=== PATIENT | male | born 1940 | race Caucasian/White ===

== ENCOUNTER 2024-03-31 22:38 | Inpatient (IN) | payer MEDICARE, SELFPAY ==
--- NOTE | ~2024-03-31 | MR_ITS ---
MR brain/brain stem wo/w con Ordering provider: Valdez Wallace MD History: 83 years Male with . abnml CT brain . Comparison: CT head performed today. Technique: MRI brain was performed with and without contrast. FINDINGS: BONES: Normal. CRANIOCERVICAL JUNCTION: normal. PITUITARY: Normal. MAJOR INTRACRANIAL VESSELS: Normal flow void. OPTIC NERVES AND CRANIAL NERVES VII AND VIII COMPLEXES: Grossly normal. BRAIN PARENCHYMA AND CSF SPACES: No visible white matter disease. The brainstem and cerebellum are n ormal. Susceptibility artifacts are seen in the left temporal lobe suggestive of hemorrhagic changes with brain contusion. No other similar areas seen in the rest of the brain. No extra axial fluid jose l ections. Diffusion weighted and ADC mapping images reveal 2 small foci in the left occipital and the right frontal lobes which may represent focal lacunar infarcts.. No midline shift or mass effect. No abnormal contrast enhancement. PARANASAL SINUSES: Normal. MASTOIDS: Minimal effusion in both mastoid air cells. SUPERFICIAL/SURROUNDING SOFT TISSUES: Normal. IMPRESSION: 1. Multiple small Susceptibility artifact areas seen in the left temporal lobe suggestive of hemorrh agic changes. Brain contusion is possible. 2. 2 small foci of diffusion restriction in the right frontal and left occipital lobes which may rep resent small lacunar infarcts. 3. No abnormal enhancement. Reviewed, dictated and finalized at location A. IMPRESSION: 1. Multiple small Susceptibility artifact areas seen in the left temporal lobe suggestive of hemorrhagic changes. Brain contusion is possible. 2. 2 small foci of diffusion restriction in the right frontal and left occipit al lobes which may represent small lacunar infarcts. 3. No abnormal enhancement.
--- NOTE | ~2024-03-31 | XR_ITS ---
XR chest 1V portable Ordering provider: Dalton Villafuerte MD History: 83 years Male with . sob . Comparison: None. FINDINGS: MEDIASTINUM: The cardiac silhouette is not enlarged. Prominent right hilum. LUNGS: No effusion or pneumothorax. Opacification in the right lung base and to a lesser extent the l eft suggestive of pneumonia. OTHER: No free air under the diaphragm. Degenerative changes of the spine. Bilateral shoulder arthroplasty. IMPRESSION: Bibasilar pneumonia more on the right side. Reviewed, dictated and finalized at location A.
--- NOTE | ~2024-03-31 | CT_ITS ---
EXAMINATION: CT brain wo con DATE: 04/09/2024 12:49 INDICATION: Hemorrhagic cerebrovascular accident. TECHNIQUE: Computed tomography (CT) of the head was performed without intravenous contrast. The mA wa s adjusted according to patient size. Iterative reconstruction technique was employed. The dose-lengt h product was 832.33 mGy-cm. COMPARISON: Head CT 04/08/2024, brain MRI 04/08/2024 FINDINGS: There are scattered areas of low attenuation in the cerebral white matter, which is within normal limits for the patient's age. There are 4 mm and 5 mm hyperdense masses in sulci in left tempo ral lobe. There is no acute ischemic infarct. The ventricles are normal in size. There is mild mucosa l thickening in the ethmoid sinuses. There are likely changes of ocular lens replacement surgeries. T he mastoid air cells are normal. IMPRESSION: 1. 4 mm and 5 mm hyperdense masses again seen in sulci in left temporal lobe, most likely acute subar achnoid hemorrhage. Reviewed, dictated and finalized at location A. IMPRESSION: 1. 4 mm and 5 mm hyperdense masses again seen in sulci in left temporal lobe, m ost likely acute subarachnoid hemorrhage.
--- NOTE | ~2024-03-31 | CT_ITS ---
CT diagnostic chest wo con Ordering provider: Coy Garcia MD History: 83 years Male with . CHF ? pleural effusion . Comparison: None. Technique: CT chest without IV contrast.Radiation reduction technique utilized. DLP is 681.17 mGy. FINDINGS: VISUALIZED THORACIC INLET: Normal. MEDIASTINUM: Aorta/coronary arteries: Mild atheromatous disease. Heart/other: The heart is not enlarged. Moderate pericardial effusion. Lymph nodes: No mediastinal or hilar adenopathy. Paratracheal lymph node is noted measuring 1.1 cm. [address] mall prevascular lymph nodes are noted. LUNGS: Bilateral pleural effusion more on the right side. No pulmonary nodules or masses. No pneumoth orax. Atelectasis versus pneumonia seen in the right lung bases posteriorly more on the right side VISUALIZED UPPER ABDOMEN: Fluid is seen medial to the esophagus in the lower thoracic area.Further ev aluation for the esophagus is advised although most likely not related to esophageal pathology. Stone is seen in the right kidney upper pole. Otherwise, the visualized upper abdomen is normal. MUSCULOSKELETAL: Soft tissues: The superficial soft tissues are normal. Bones: Age appropriate degenerative changes of the spine. Slight loss of volume of 2 vertebrae in the upper thoracic area most likely chronic. Degenerative disc disease seen in the lower thoracic area. Bilateral shoulder arthroplasty. IMPRESSION: 1. Bilateral pleural effusion although moderate degree with adjacent atelectasis versus pneumonia in the lower lobes 2. Moderate pericardial effusion. 3. Right renal stone. 4. Fluid collection seen adjacent to the esophagus. Further evaluation of the esophagus advised. Reviewed, dictated and finalized at location A. IMPRESSION: 1. Bilateral pleural effusion although moderate degree with adjacent atelectas is versus pneumonia in the lower lobes 2. Moderate pericardial effusion. 3. Right renal stone. 4. Fluid collection seen adjacent to the esophagus. Further evaluation of the esophagus advised.
--- NOTE | ~2024-03-31 | US_ITS ---
EXAMINATION: US carotid duplex BI DATE: 04/09/2024 09:50 INDICATION: Right frontal and left occipital infarcts. Cerebrovascular accident. TECHNIQUE: Grayscale, color Doppler, and pulsed Doppler images of the cervical carotid arteries were obtained. The degree of vessel stenosis is placed in one of the following categories: normal, <50%, 5 0-69%, >=70% but less than near-occlusion, near-occlusion, or total occlusion. Note that percent sten osis relative to normal distal artery lumen diameter is indirectly measured from velocity measurement s as described by Umair, et al. Radiology 2003; 229:340-346. COMPARISON: None. FINDINGS: RIGHT: The right common carotid artery (CCA) peak systolic velocity (PSV) is 82 cm/s. The right internal car otid artery (ICA) PSV is 96 cm/s. The right ICA end-diastolic velocity (EDV) is 23 cm/s. The right IC A/CCA PSV ratio is 1.2. Grayscale and color Doppler images yield an estimate of <50% diameter reducti on from plaque in the ICA. There is antegrade flow in the right vertebral artery. LEFT: The left CCA PSV is 69 cm/s. The left ICA PSV is 95 cm/s. The left ICA EDV is 20 cm/s. The left ICA/C CA PSV ratio is 1.4. Grayscale and color Doppler images yield an estimate of <50% diameter reduction from plaque in the ICA. There is no visible flow in the left vertebral artery. IMPRESSION: 1. <50% stenosis in the right internal carotid artery. 2. <50% stenosis in the left internal carotid artery. 3. No visible flow in left vertebral artery, which may be secondary to thrombosis or small artery siz e. Reviewed, dictated and finalized at location A. IMPRESSION: 1. <50% stenosis in the right internal carotid artery. 2. <50% stenosis in the left internal carotid artery. 3. No visible flow in left vertebral artery, which may be secondary to thrombos is or small artery size.
--- NOTE | ~2024-03-31 | CT_ITS ---
CT brain wo con Ordering provider: Valdez Wallace MD History: 83 years Male with . change in mental status . Comparison: None. Technique: CT of the head without contrast. Radiation reduction technique utilized. DLP measures 681m Gy. FINDINGS: BRAIN PARENCHYMA AND CSF SPACES: 2 Small hyperdense foci seen in the left temporal area which are mos t likely hemorrhagic or metastatic. Further evaluation advised. Mild brain atrophy with deep white ma tter ischemic changes. No midline shift, mass effect or hemorrhage. The brain parenchyma and CSF spa jerad are otherwise normal. VISUALIZED PARANASAL SINUSES: Well aerated. MASTOIDS: Well aerated. BONES: The bones appear intact. SOFT TISSUES: Visualized nasopharynx is normal. Superficial soft tissues are normal. IMPRESSION: 2 small hypodense foci in the left temporal area which measures 4 mm and 6 mm. The differential inclu sean hemorrhagic and metastatic lesions. Follow-up MRI with contrast advised. Reviewed, dictated and finalized at location A. IMPRESSION: 2 small hypodense foci in the left temporal area which measures 4 mm and 6 mm. The differential includes hemorrhagic and metastatic lesions. Follow-up MRI wit h contrast advised.
--- NOTE | ~2024-03-31 | XR_ITS ---
EXAMINATION: XR chest 1V portable DATE: 04/08/2024 09:15 INDICATION: Dyspnea. TECHNIQUE: A single frontal view of the chest was obtained. COMPARISON: Chest single view 03/31/2024, chest CT 04/05/2024 FINDINGS: There are airspace opacities in the perihilar regions and at the lung bases. The lung volum es are small. There is a small left pleural effusion. Pneumothorax. The heart size is normal. There a re bilateral shoulder arthroplasties. IMPRESSION: 1. Small lung volumes with airspace opacities in the perihilar regions and at the lung bases, likely atelectasis. 2. Small left pleural effusion. Reviewed, dictated and finalized at location A. IMPRESSION: 1. Small lung volumes with airspace opacities in the perihilar regions and at t he lung bases, likely atelectasis. 2. Small left pleural effusion.
--- NOTE | ~2024-03-31 | XR_ITS ---
EXAMINATION: XR chest 1V portable DATE: 04/09/2024 10:31 INDICATION: Congestive heart failure. TECHNIQUE: A single frontal view of the chest was obtained. COMPARISON: Chest single view 04/08/2024, chest CT 04/05/2024 FINDINGS: There is mild atelectasis in the lower lung zones. There are small pleural effusions. No pn eumothorax. There is enlargement of the cardiac silhouette. There is a total left shoulder arthroplas ty. IMPRESSION: 1. Mild atelectasis in the lower lung zones. 2. Small pleural effusions. 3. Enlargement of the cardiac silhouette correlating with a pericardial effusion by CT. Reviewed, dictated and finalized at location A. IMPRESSION: 1. Mild atelectasis in the lower lung zones. 2. Small pleural effusions. 3. Enlargement of the cardiac silhouette correlating with a pericardial effusio n by CT.
[2024-03-31 22:30] VITALS: BP 153/96; PULSE 91; RESP 18; TEMP 36.1; O2SAT 96; BMI 41.4
[2024-03-31 22:34] VITALS: BMI 41.3
--- NOTE | 2024-03-31 22:38 | PM.IMHP ---
H&P: HPI History of Present Illness Date/Time: 03/31/24 22:38 Chief Complaint: sob Narrative: This is an 83-year-old male with past medical history significant for insulin-dependent diabetes mellitus diabetic peripheral neuropathy, congestive heart failure. patient presents to the emergency room of outside hospital due to sudden onset of shortness of breath states that he had been in his usual state of health prior to that, denies any fevers, rigors, chills, chest pain, palpitations, dizziness, lightheadedness, syncope or near-syncope, no leg swelling, no cough, no sputum production. Preliminary workup was significant for elevated troponins, elevated brain natriuretic peptide decision was made to transfer patient to our facility for further evaluation. Patient require supplemental oxygen by nasal cannula. Preliminary workup here shows chest x-ray with bilateral bibasilar infiltrates. XR chest 1V portable Ordering provider: Dalton Villafuerte MD History: 83 years Male with . sob . Comparison: None. FINDINGS: MEDIASTINUM: The cardiac silhouette is not enlarged. Prominent right hilum. LUNGS: No effusion or pneumothorax. Opacification in the right lung base and to a lesser extent the left suggestive of pneumonia. OTHER: No free air under the diaphragm. Degenerative changes of the spine. Bilateral shoulder arthroplasty. IMPRESSION: Bibasilar pneumonia more on the right side. Review of Systems Review of Systems: sob Constitutional: Constitutional: Denies chills, Denies fatigue, Denies fever(s), Denies malaise, Denies night sweats, Denies poor appetite and Denies weakness Eyes: Eyes: Denies change in vision ENT: Denies dysphagia, Denies vertigo, Denies dizziness, Denies nasal congestion and Denies odynophagia Cardiovascular: Cardiovascular: Denies chest pain, Denies leg edema, Denies radiating jaw, neck or arm pain, Denies palpitations, Reports dyspnea and Reports dyspnea on exertion Respiratory: Respiratory: Denies chest congestion, Denies cough, Denies excessive phlegm production and Denies wheezing Gastrointestinal: Gastrointestinal: Denies abdominal pain, Denies dyspepsia, Denies heartburn, Denies diarrhea, Denies nausea and Denies vomiting Genitourinary: Genitourinary: Reports no additional male genitourinary complaints and Reports as per HPI Musculoskeletal: Musculoskeletal: Denies myalgias Integumentary/Breasts: Skin/Breast: Denies rash Neurologic: Denies focal weakness and Denies Sensory deficit (Neuro) Psychiatric: Psychiatric: Reports no additional psychiatric complaints and Reports as per HPI Endocrine: Endocrine: Denies cold intolerance, Denies heat intolerance, Denies polyphagia, Denies polydipsia, Denies polyuria and Denies palpitations Hematologic/Lymphatic: Hematologic/Lymphatic: Reports no additional hematologic/lymphatic complaints and Reports as per HPI Allergic/Immunologic: Allergic/Immunologic: Reports no additional allergic/immunologic complaints and Reports as per HPI [facility] Family History Family History (Updated 03/31/24 @ 23:01 by Noble Johnson RN) Father History of blood clots Social History Social History Smoking status: Never smoker Alcohol intake: never Substance use: never Do You Feel Safe in your Home?: No Lack of Transportation: YES Lack of Food: Never True Current Housing: I Have Housing Concerned About Future Housing: No Difficulty Paying Gas/Electric Bills: No Difficulty Paying for Meds: No Currently Unemployed: No Education: High School Diploma/GED Difficulty w/ Childcare or Family Care: No Spiritual care concerns: Yes Meds Home Medications and Allergies Home Medications Medication Instructions Recorded Confirmed Type acetaminophen 500 mg tablet 1,000 mg PO Q6H PRN Pain 03/31/24 03/31/24 History aspirin 81 mg chewable tablet 81 mg PO DAILY 03/31/24 03/31/24 History carvedilol 12.5 mg tablet 12.5 mg PO BID
--- NOTE | 2024-03-31 22:47 | ECG_ITS ---
Test Date: 2024-03-31 23:13:27 Measurements Intervals [place] Rate: 85 P: 29 [place]: 169 QRS: 116 QRSD: 134 T: 78 QT: 398 QTc: 474 Interpretive Statements SINUS RHYTHM MARKED RIGHT AXIS DEVIATION [QRS AXIS > 100] RIGHT BUNDLE BRANCH BLOCK [120+ ms QRS DURATION, UPRIGHT V1, 40+ ms S IN I/aVL/V4/V5/V6] ANTEROLATERAL MYOCARDIAL INFARCTION [40+ ms Q WAVE IN V1-V4], PROBABLY RECENT No previous ECG available for comparison Electronically Signed On 04-01-2024 12:43:29 CDT by Jimy Elise M.D.
--- NOTE | 2024-03-31 22:47 | ADMGEN ---
This patient, Angel Aceves, was admitted to IMU Room 203-01. Patient/family oriented to hospital policies and general routines including ID bracelet, bed and alarms, visiting hours, pain management, procedures, bathroom and other care routines, personal items, smoking policy, room service/diet, and visiting hours. Information on how to activate the Rapid Response Team has been discussed. Patient/Family are encouraged to report perceived risks to care and to ask questions if they do not understand what they are told or what they should do.
[2024-03-31 23:29] LABS: Basophils Percent Auto 0.1 % (0.2-1.2); Eosinophils Percent Auto 0.1 % (0-4.4); Hematocrit 42.2 % (42.0-52.0); Hemoglobin 12.9 g/dL (14.0-18.0); Immature Granulocyte Absolute 0.01 K/mm3 (0.00-0.031); Immature Granulocyte Percent A 0.1 % (0-0.5); Lymphocytes Absolute Auto 0.57 K/mm3 (0.9-3.2); Lymphocytes Percent Auto 8.5 % (18.3-44.2); Mean Corpuscular HGB Conc 30.6 g/dl (32-36); Mean Corpuscular Hemoglobin 27.3 pg (26-34); Mean Corpuscular Volume 89.4 fl (80-100); Mean Platelet Volume 10.2 fl (7.4-10.4); Monocytes Absolute Auto 0.1 K/mm3 (0.1-0.6); Monocytes Percent Auto 0.7 % (2.6-8.5); Neutrophils Percent Auto 90.5 % (45.5-73.1); Platelet Count Result 141 k/mm3 (150-375); Red Blood Count 4.72 M/mm3 (4.6-6.20); Red Cell Distribution Width 14.4 % (11.5-14.5); White Blood Count 6.7 K/mm3 (4.5-10.0)
[2024-03-31 23:40] VITALS: O2SAT 98
[2024-03-31 23:40] LABS: Anion Gap 6 mmol/L (4-12); Blood Urea Nitrogen 28 mg/dL (9-20); Calcium 8.6 mg/dL (8.4-10.2); Carbon Dioxide 31 mmol/L (22-30); Chloride 101 mmol/L (98-107); Estimated CRCL calculation 34 ml/min; Estimated Glomerular Filt Rate 48; Glucose 193 mg/dL (65-110); Phosphorus 2.5 mg/dL (2.5-4.5); Potassium 4.6 mmol/L (3.4-5.0); Sodium 138 mmol/L (137-145)
[2024-03-31 23:41] LABS: INR 1.3; Prothrombin Time 16.1 Seconds (11.1-14.7)
[2024-03-31 23:42] LABS: Partial Thromboplastin Time 53.7 Seconds (22.3-36.8)
[2024-03-31 23:46] LABS: Glucose Point of Care 196 mg/dl (65-105)
[2024-04-01] VITALS (26 sets, daily range): BP systolic 114–131; BP diastolic 49–84; PULSE 82–105; RESP 16–20; TEMP 36.4–36.6; O2SAT 91–97
--- NOTE | 2024-04-01 | ECHO_ITS ---
Patient Info Name: Angel Aceves Age: 83 years : 1940 Gender: Male Ht: 60 in Wt: 212 lbs BSA: 2.07 m2 HR: 87 bpm BP: 114 / 64 mmHg Technical Quality: Fair Exam Date: 04/01/2024 7:38 AM Exam Location: Echo Lab Patient Status: Inpatient Admit Date: 03/31/2024 Staff Ordering Physician: Datlon Villafuerte MD Tube Closing Machine Operator: Jaswinder Quintanilla RDCS Attending Provider: Dalton Villafuerte MD Referring Physician: Christo DUARTE; Exam Type: CA echo dop color flow w con Study Info Indications - sob Complete two-dimensional, color flow and Doppler transthoracic echocardiogram is performed with contrast to opacify the left ventricle and to improve the deliniation of the left ventricle endocardial borders. Contrast/Agitated Saline Contrast/Ag. Saline: Definity Amount: 5.00 ml Existing IV Access: Yes Summary 1. Definity contrast administered improved wall motion interpretation. 2. Left ventricular chamber dimension is severely enlarged. 3. Left ventricular systolic function is severely globally reduced, estimated at 15-20%. The basal posterolateral wall has mild hypokinesis compared to other segments that are severely hypokinetic to akinetic. 4. The left ventricular diastolic function is grade I diastolic dysfunction. 5. E/e' 14 is mildly elevated. 6. There is mild aortic valve sclerosis. 7. There is mild mitral valve regurgitation. 8. There is mild tricuspid valve regurgitation. 9. Mild pulmonary hypertension, estimated pulmonary arterial systolic pressure is 42 mmHg. 10. Dilated inferior vena cava with >50% collapse upon inspiration consistent with elevated right atrial pressure, 10 mmHg. 11. There is small circumferential pericardial effusion. Left Ventricle Definity contrast administered improved wall motion interpretation. E/e' 14 is mildly elevated. Left ventricular systolic function is severely globally reduced, estimated at 15-20%. The basal posterolateral wall has mild hypokinesis compared to other segments that are severely hypokinetic to akinetic. Left ventricular chamber dimension is severely enlarged. The left ventricular diastolic function is grade I diastolic dysfunction. Right Ventricle Right ventricular chamber dimension is not well visualized. Left Atria Left atrial chamber dimension is normal. Right Atria Right atrial chamber dimension is normal. Aortic Valve The aortic valve is trileaflet. There is mild aortic valve sclerosis. There is no aortic valve stenosis. There is no aortic valve regurgitation. Pulmonic Valve There is no pulmonic regurgitation. Mitral Valve There is no mitral valve stenosis. There is mild mitral valve regurgitation. Tricuspid Valve There is mild tricuspid valve regurgitation. Mild pulmonary hypertension, estimated pulmonary arterial systolic pressure is 42 mmHg. Pericardium/Pleural No cardiac tamponade. There is small circumferential pericardial effusion. Inferior Vena Cava Dilated inferior vena cava with >50% collapse upon inspiration consistent with elevated right atrial pressure, 10 mmHg. Aorta The aortic root size at the sinus of Valsalva is normal. Left Ventricular Outflow Tract Name Value Normal LVOT 2D LVOT Diameter 2.01 cm LVOT Doppler
[2024-04-01] MEDS: cefTRIAXone 2 GM/NS 100 ML 2 GM/100 ML BAG IVPB ×2 (00:13→20:56)
[2024-04-01] MEDS: hydrALAZINE HCL 25 MG TABLET PO (00:13)
[2024-04-01] MEDS: GABAPENTIN 300 MG CAPSULE 600 MG PO ×3 (00:13→20:55)
[2024-04-01] MEDS: IMIPRAMINE HCL 25 MG TABLET PO ×2 (00:25→20:55)
[2024-04-01] MEDS: AZITHROMYCIN 500 MG/NS 250 ML 500 MG/250 ML BAG 250 MG IVPB ×2 (00:48→20:57)
[2024-04-01] MEDS: LEVALBUTEROL NEB 1.25 MG/3 ML 0.63 MG INHALATION ×4 (01:45→19:55)
[2024-04-01] MEDS: HEPARIN SOD/D5W 100 UNITS/ML 25,000 UNITS/250 ML BAG 8 UNITS IV CONT (01:54)
[2024-04-01 08:32] LABS: Glucose Point of Care 224 mg/dl (65-105)
[2024-04-01] MEDS: PERFLUTREN LIPID MICROSPHERES 1.5 ML VIAL DILUTED TO 10 ML TOTAL VOLUME IV PUSH (08:44)
--- NOTE | 2024-04-01 08:44 | IVDEFINITY ---
Prior to administration of IV Definity the patient was educated on the risks and benefits of the imaging enhancing agent including potential adverse side effects. The patient verbalized understanding. Allergies were verified. No exclusion criteria were identified and at least one of the following inclusion criteria were met: 1) physician request, 2) patient technically difficult to image (per the [place] [employer] guidelines of two or more segments not discernable within the apical view), or 3) questionable left ventricular function. ?
[2024-04-01] MEDS: PRAMIPEXOLE 0.5 MG TABLET PO (09:23)
[2024-04-01] MEDS: ASPIRIN 81 MG CHEWABLE TABLET PO (09:23)
[2024-04-01] MEDS: TAMSULOSIN HCL 0.4 MG CAPSULE PO (09:23)
[2024-04-01] MEDS: INSULIN HUMAN ISOPHAN/REGULAR 70/30 (*BKC) 100 UNITS/ML 12 UNITS SUB-Q (09:28)
[2024-04-01 09:48] LABS: Partial Thromboplastin Time 46.4 Seconds (22.3-36.8)
[2024-04-01 09:50] LABS: Cholesterol 118 mg/dL (0-200); HDL Direct 36 mg/dL; Triglycerides 85 mg/dL (<150)
[2024-04-01] MEDS: HEPARIN SODIUM 5,000 UNITS/ML VIAL 4000 UNITS IV PUSH (09:53)
[2024-04-01 10:08] LABS: LDL Cholesterol Direct 75 mg/dL
[2024-04-01 10:12] LABS: NT Pro B Type Natriuretic Pept 14700 pg/mL (19.9-100)
--- NOTE | 2024-04-01 10:57 | PM.CNCAR ---
Assessment and Plan Assessment and plan (1) Heart failure with reduced ejection fraction: Code(s): I50.20 - Unspecified systolic (congestive) heart failure Status: Acute Assessment and Plan: Transthoracic echocardiogram shows severe enlargement of LV, LVEF is 15-20%, the basal posterolateral wall has mild hypokinesis compared to the other segments that are severely hypokinetic to akinetic, grade 1 diastolic dysfunction, mild MR, mild TR, mild PHTN, small circumferential pericardial effusion. This is a new diagnosis for the patient. Continue home medication of Coreg 12.5mg BID. Will stop home Hydralazine and start Entresto. If renal function stays okay with Entresto, will plan to add Spironolactone. Eventually add SGLT-2 inhibitor. Patient currently appears euvolemic -- no need for diuretic at this time. I did discuss cardiac catheterization with the patient, however, patient is not interested in pursuing that at this time, therefore, will proceed with medical management. (2) Elevated troponin: Code(s): R79.89 - Other specified abnormal findings of blood chemistry Status: Acute Assessment and Plan: Troponin 2.460, 2.140, 2.120. EKG shows sinus rhythm, right bundle branch block, possible recent anterolateral infarction. No prior EKG available for comparison. Patient's symptoms of exertional shortness of breath and weakness first began a few weeks ago. Patient may have had a myocardial infarction at that time. Troponins are currently flat and patient has no chest pain or other symptoms to suggest ongoing active myocardial ischemia. Therefore, will stop Heparin drip. Continue ASA 81mg once daily. Will start high intensity statin. I did discuss cardiac catheterization with the patient, however, patient is not interested in pursuing that at this time, therefore, will proceed with medical management. (3) Acute hypoxic respiratory failure: Code(s): J96.01 - Acute respiratory failure with hypoxia Status: Acute Assessment and Plan: Wean off oxygen as tolerated. (4) Pneumonia: Code(s): J18.9 - Pneumonia, unspecified organism Status: Acute Assessment and Plan: On antibiotics as per primary team. (5) T2DM (type 2 diabetes mellitus): Code(s): E11.9 - Type 2 diabetes mellitus without complications Status: Acute Assessment and Plan: Management as per primary team. Plan Recommendations and plan discussed with Hospitalist. History of Present Illness History of Present Illness Consult date/time: 04/01/24 10:57 Requesting physician: Dalton Villafuerte MD Consult reason: Other (Elevated troponins ) Reason For Visit: NSTEMI Narrative: This is an 83 year old male with insulin-dependent diabetes mellitus complicated by peripheral neuropathy and hypertension who was transferred from outside hospital for elevated troponin levels. Patient reports that he has been having weakness and exertional shortness of breath for the past few weeks and has been getting progressively worse. No chest pain or other associated symptoms. Patient states he felt this way before when he had pneumonia in the past. He was hoping it would improve at home, but since it didn't, he decided to go to hospital. No prior patient records in our system. Patient denies any past cardiac issues. Does not see a gas analyst. Workup shows: Troponin 2.460, 2.140, 2.120. NT pro BNP of 14,700 CXR with bibasilar pneumonia more on the right side. EKG shows sinus rhythm, right bundle branch block, possible recent anterolateral infarction. No prior EKG available for comparison. At the time of my evaluation, patient reports he is overall feeling well. Review of Systems Review of Systems: All systems reviewed & are unremarkable except as noted in HPI and below (HPPI) [facility] Family History Family History Father History of blood clots
[2024-04-01] MEDS: ATORVASTATIN 40 MG TABLET 80 MG PO (11:30)
[2024-04-01] MEDS: INSULIN HUMAN ISOPHAN/REGULAR 70/30 (*BKC) 100 UNITS/ML 34 UNITS SUB-Q (11:31)
[2024-04-01 11:45] LABS: Glucose Point of Care 222 mg/dl (65-105)
[2024-04-01 11:51] LABS: Hemoglobin A1C 7.7 % (<5.7)
--- NOTE | 2024-04-01 13:59 | PM.IMPN ---
Progress Note: A&P Assessment and Plan (1) Pneumonia: Code(s): J18.9 - Pneumonia, unspecified organism Status: Acute Assessment and Plan: Started on Rocephin and Zithromax blood cultures in progress (2) Acute hypoxic respiratory failure: Code(s): J96.01 - Acute respiratory failure with hypoxia Status: Acute Assessment and Plan: likely secondary to 1. Continue to monitor (3) Elevated troponin: Code(s): R79.89 - Other specified abnormal findings of blood chemistry Status: Acute Assessment and Plan: currently on heparin cardiology consult Echo with systolic dysfunction Appreciate cardiology recommendations (4) T2DM (type 2 diabetes mellitus): Code(s): E11.9 - Type 2 diabetes mellitus without complications Status: Acute Assessment and Plan: resume insulin (5) Elevated brain natriuretic peptide (BNP) level: Code(s): R79.89 - Other specified abnormal findings of blood chemistry Status: Acute Assessment and Plan: echocardiogramWith systolic dysfunction patient appears euvolemic on physical exam place on fluid restriction daily intake and output Subjective Date/time seen: 04/01/24 13:59 Interval history: Getting an echocardiogram this a.m. Denies any chest pain. Breathing is better. No cough reported. Review of Systems Review of Systems: All systems reviewed & are unremarkable except as noted in HPI and below Exam Narrative: GENERAL: The patient is well developed, not in acute distress HEENT: Nonicteric sclerae, PERRLA, EOMI. Oropharynx clear. Moist mucous membranes. Conjunctivae appear well perfused. CHEST: Chest wall is nontender. HEART: Regular rate and rhythm without murmur, rubs, or gallops LUNGS: Clear to auscultation bilaterally. no respiratory distress ABDOMEN: Soft, positive bowel sounds, non-tender, no organomegaly. SKIN: No rash, no excessive bruising, petechiae, or purpura. NEUROLOGIC: Cranial nerves II-XII intact, alert and oriented x 3, no gross motor deficits EXTREMITIES: no edema, cyanosis or clubbing Objective Data Vital Signs Vital Signs: Vital Signs - 24 hr 03/31/24 22:30 03/31/24 23:40 04/01/24 00:00 Temperature 96.9 F L Pulse Rate 91 90 Respiratory Rate 18 Blood Pressure 153/96 H Pulse Oximetry 96 98 Oxygen Delivery Nasal Cannula Oxygen Flow Rate 2 04/01/24 00:00 04/01/24 01:47 04/01/24 02:00 Temperature 97.7 F Pulse Rate 88 92 90 Respiratory Rate 18 19 Blood Pressure 121/75 Pulse Oximetry 92 Oxygen Delivery Oxygen Flow Rate 04/01/24 03:49 04/01/24 04:15 04/01/24 04:00 Temperature 97.6 F Pulse Rate 87 87 85 Respiratory Rate 18 18 Blood Pressure 114/64 Pulse Oximetry 91 91 Oxygen Delivery Nasal Cannula Oxygen Flow Rate 2 04/01/24 07:17 04/01/24 07:17 04/01/24 07:24 Temperature Pulse Rate 90 90 Respiratory Rate 18 18 Blood Pressure Pulse Oximetry 95 Oxygen Delivery Nasal Cannula Oxygen Flow Rate 2 04/01/24 06:00 04/01/24 08:00 04/01/24 08:00 Temperature Pulse Rate 85 83 90 Respiratory Rate 18 Blood Pressure Pulse Oximetry 95 Oxygen Delivery Nasal Cannula Oxygen Flow Rate 2 04/01/24 08:00 04/01/24 11:53 04/01/24 10:00 Temperature 97.7 F 97.7 F Pulse Rate 89 89 86 Respiratory Rate 20 16 Blood Pressure 130/70 131/84 Pulse Oximetry 97 92 Oxygen Delivery Oxygen Flow Rate 04/01/24 12:00 04/01/24 12:00 04/01/24 13:44 Temperature Pulse Rate 95 89 104 H Respiratory Rate 16 18 Blood Pressure Pulse Oximetry 92 Oxygen Delivery Nasal Cannula Oxygen Flow Rate 2 04/01/24 13:54 Temperature Pulse Rate 105 H Respiratory Rate 18 Blood Pressure Pulse Oximetry Oxygen Delivery Oxygen Flow Rate Intake/Output Intake/Output: Intake & Output 03/29/24 03/30/24 03/31/24 04/01/24 23:59 23:59 23:59 23:59 Intake Total 774.1 Balance
[2024-04-01 15:50] LABS: Glucose Point of Care 297 mg/dl (65-105)
[2024-04-01 16:12] LABS: Partial Thromboplastin Time 29.9 Seconds (22.3-36.8)
[2024-04-01] MEDS: INSULIN ASPART (*BKC) 100 UNITS/ML SUB-Q ×2 (16:43→20:56)
[2024-04-01 20:15] LABS: Glucose Point of Care 260 mg/dl (65-105)
[2024-04-01] MEDS: SACUBITRIL/VALSARTAN 24-26 MG TABLET 1 TAB PO (20:55)
[2024-04-01] MEDS: carvediloL 12.5 MG TABLET PO (23:32)
[2024-04-02] VITALS (23 sets, daily range): BP systolic 112–140; BP diastolic 63–86; PULSE 70–95; RESP 16–20; TEMP 36–36.7; O2SAT 92–99
[2024-04-02 04:31] LABS: Basophils Percent Auto 0.1 % (0.2-1.2); Eosinophils Percent Auto 0.3 % (0-4.4); Hematocrit 38.6 % (42.0-52.0); Hemoglobin 12.1 g/dL (14.0-18.0); Immature Granulocyte Absolute 0.03 K/mm3 (0.00-0.031); Immature Granulocyte Percent A 0.4 % (0-0.5); Lymphocytes Absolute Auto 1.41 K/mm3 (0.9-3.2); Lymphocytes Percent Auto 19.6 % (18.3-44.2); Mean Corpuscular HGB Conc 31.3 g/dl (32-36); Mean Corpuscular Hemoglobin 27.8 pg (26-34); Mean Corpuscular Volume 88.5 fl (80-100); Mean Platelet Volume 9.6 fl (7.4-10.4); Monocytes Absolute Auto 0.6 K/mm3 (0.1-0.6); Monocytes Percent Auto 7.8 % (2.6-8.5); Neutrophils Absolute Auto 5.2 K/mm3 (1.3-6.7); Neutrophils Percent Auto 71.8 % (45.5-73.1); Platelet Count Result 167 k/mm3 (150-375); Red Blood Count 4.36 M/mm3 (4.6-6.20); Red Cell Distribution Width 14.7 % (11.5-14.5); White Blood Count 7.2 K/mm3 (4.5-10.0)
[2024-04-02 04:50] LABS: Alanine Aminotransferase 51 U/L (6-50); Albumin Level 3.6 g/dL (3.5-5.1); Alkaline Phosphatase 101 U/L (38-126); Anion Gap 8 mmol/L (4-12); Aspartate Amino Transferase 34 U/L (17-59); Bilirubin,Total 0.4 mg/dL (0.2-1.3); Blood Urea Nitrogen 40 mg/dL (9-20); Calcium 8.6 mg/dL (8.4-10.2); Carbon Dioxide 30 mmol/L (22-30); Chloride 101 mmol/L (98-107); Estimated CRCL calculation 26 ml/min; Estimated Glomerular Filt Rate 36; Glucose 170 mg/dL (65-110); Magnesium 2.2 mg/dL (1.6-2.3); Potassium 4.1 mmol/L (3.4-5.0); Sodium 139 mmol/L (137-145)
[2024-04-02] MEDS: LEVALBUTEROL NEB 1.25 MG/3 ML 0.63 MG INHALATION ×3 (07:19→20:13)
[2024-04-02 08:04] LABS: Glucose Point of Care > 500 mg/dl (65-105)
[2024-04-02 08:04] LABS: Glucose Point of Care 154 mg/dl (65-105)
[2024-04-02 09:14] LABS: Anion Gap 9 mmol/L (4-12); Blood Urea Nitrogen 41 mg/dL (9-20); Calcium 8.6 mg/dL (8.4-10.2); Carbon Dioxide 30 mmol/L (22-30); Chloride 100 mmol/L (98-107); Estimated CRCL calculation 28 ml/min; Estimated Glomerular Filt Rate 38; Glucose 223 mg/dL (65-110); Potassium 4.4 mmol/L (3.4-5.0); Sodium 139 mmol/L (137-145)
--- NOTE | 2024-04-02 09:59 | PM.PNCARD ---
Progress Note: A&P Assessment and Plan (1) Heart failure with reduced ejection fraction: Code(s): I50.20 - Unspecified systolic (congestive) heart failure Status: Acute Assessment and Plan: Transthoracic echocardiogram shows severe enlargement of LV, LVEF is 15-20%, the basal posterolateral wall has mild hypokinesis compared to the other segments that are severely hypokinetic to akinetic, grade 1 diastolic dysfunction, mild MR, mild TR, mild PHTN, small circumferential pericardial effusion. This is a new diagnosis for the patient. Continue home medication of Coreg 12.5mg BID. Up titrate as possible Continue Entresto If renal function stays okay with Entresto, will plan to add Spironolactone. Eventually add SGLT-2 inhibitor. Patient currently appears euvolemic -- no need for diuretic at this time. Patient is now wanting to have a cardiac cath. I had a lengthy conversation with the patient and his about potential findings and treatment if he does have obstructive CAD and alternative of medical therapy. At this time he is wanting to proceed with coronary angiogram which can take place on Friday if his renal function improves. I discussed the option of outpatient cath since he is not having any anginal symptoms but he and his both prefer for the procedure to take place before he leaves the hospital. Again, his renal function would need to improve before this can take place. (2) Elevated troponin: Code(s): R79.89 - Other specified abnormal findings of blood chemistry Status: Acute Assessment and Plan: Troponin 2.460, 2.140, 2.120. EKG shows sinus rhythm, right bundle branch block, possible recent anterolateral infarction. No prior EKG available for comparison. Patient's symptoms of exertional shortness of breath and weakness first began a few weeks ago. Patient may have had a myocardial infarction at that time. Troponins are currently flat and patient has no chest pain or other symptoms to suggest ongoing active myocardial ischemia. Therefore, will stop Heparin drip. Continue ASA 81mg once daily. Will start high intensity statin. See above re: ischemic evaluation. (3) Acute hypoxic respiratory failure: Code(s): J96.01 - Acute respiratory failure with hypoxia Status: Acute Assessment and Plan: Wean off oxygen as tolerated. (4) Pneumonia: Code(s): J18.9 - Pneumonia, unspecified organism Status: Acute Assessment and Plan: On antibiotics as per primary team. (5) T2DM (type 2 diabetes mellitus): Code(s): E11.9 - Type 2 diabetes mellitus without complications Status: Acute Assessment and Plan: Management as per primary team. Subjective Date/time seen: 04/02/24 09:59 Interval history: Cardiology follow-up for severe cardiomyopathy Date of service 04/02/2024: States he feels about the same today. No specific complaints. Review of Systems Review of Systems: All systems reviewed & are unremarkable except as noted in HPI and below (HPPI) Exam Const: General: comfortable and no acute distress HENMT: Mouth: Yes moist mucous membranes Eyes: General: appearance normal, both eyes and all related structures Sclera: sclerae normal Neck: Neck: supple Resp: Effort & Inspection: normal respiratory effort Auscultation: clear to auscultation bilaterally and diminished lung sounds Cardio: Rate: regular rate Rhythm: regular rhythm Heart sounds: no murmurs Skin: General skin exam: normal color Neuro: Speech: normal speech Extrem: General: edema and pedal edema (Mild pretibial and pedal edema, R worse than L) Psych: Mental Status: mental status grossly normal Affect: normal affect Objective Data Vital Signs Vital Signs: Vital Signs - 24 hr 04/01/24 11:53 04/01/24 10:00 04/01/24 12:00 Temperature 36.5 C Pulse Rate 89 86 95 Respiratory Rate 16 Blood Pressure 131/84 Pulse Oximetry 92 Oxy
[2024-04-02] MEDS: ATORVASTATIN 40 MG TABLET 80 MG PO (10:02)
[2024-04-02] MEDS: SACUBITRIL/VALSARTAN 24-26 MG TABLET 1 TAB PO ×2 (10:03→21:43)
[2024-04-02] MEDS: ASPIRIN 81 MG CHEWABLE TABLET PO (10:03)
[2024-04-02] MEDS: PRAMIPEXOLE 0.5 MG TABLET PO (10:03)
[2024-04-02] MEDS: TAMSULOSIN HCL 0.4 MG CAPSULE PO (10:03)
[2024-04-02] MEDS: GABAPENTIN 300 MG CAPSULE 600 MG PO ×2 (10:03→21:45)
[2024-04-02] MEDS: carvediloL 12.5 MG TABLET PO ×2 (10:04→21:44)
[2024-04-02] MEDS: INSULIN HUMAN ISOPHAN/REGULAR 70/30 (*BKC) 100 UNITS/ML 34 UNITS SUB-Q (10:04)
--- NOTE | 2024-04-02 10:11 | PM.IMPN ---
Progress Note: A&P Assessment and Plan (1) Pneumonia: Code(s): J18.9 - Pneumonia, unspecified organism Status: Acute Assessment and Plan: Started on Rocephin and Zithromax blood cultures no growth to date (2) Acute hypoxic respiratory failure: Code(s): J96.01 - Acute respiratory failure with hypoxia Status: Acute Assessment and Plan: likely secondary to 1. Continue to monitor (3) Elevated troponin: Code(s): R79.89 - Other specified abnormal findings of blood chemistry Status: Acute Assessment and Plan: currently on heparin cardiology consult Echo with with EF 15-20%. Basal posterolateral wall has mild hypokinesis compared to other segments are severely hypokinetic to akinetic. Grade 1 diastolic dysfunction. Mild pulmonary hypertension. Small circumferential pericardial effusion. Appreciate cardiology recommendations Cardiology discussed cardiac catheterization which patient refused and currently on medical management. (4) T2DM (type 2 diabetes mellitus): Code(s): E11.9 - Type 2 diabetes mellitus without complications Status: Acute Assessment and Plan: resume insulin (5) Elevated brain natriuretic peptide (BNP) level: Code(s): R79.89 - Other specified abnormal findings of blood chemistry Status: Acute Assessment and Plan: echocardiogramWith systolic dysfunction patient appears euvolemic on physical exam place on fluid restriction daily intake and output Plan Heart failure with reduced ejection fraction EF 20% leg started Entresto. Creatinine bumped up today. Will continue to monitor. Plans to add spironolactone SGOT 2 inhibitors eventually. Subjective Date/time seen: 04/02/24 10:11 Interval history: Patient feeling well. Family at bedside. No chest pain. Remains on 2 L oxygen via nasal cannula. Echo reviewed Review of Systems Review of Systems: All systems reviewed & are unremarkable except as noted in HPI and below Exam Narrative: GENERAL: The patient is well developed, not in acute distress HEENT: Nonicteric sclerae, PERRLA, EOMI. Oropharynx clear. Moist mucous membranes. Conjunctivae appear well perfused. CHEST: Chest wall is nontender. HEART: Regular rate and rhythm without murmur, rubs, or gallops LUNGS: Clear to auscultation bilaterally. no respiratory distress ABDOMEN: Soft, positive bowel sounds, non-tender, no organomegaly. SKIN: No rash, no excessive bruising, petechiae, or purpura. NEUROLOGIC: Cranial nerves II-XII intact, alert and oriented x 3, no gross motor deficits EXTREMITIES: no edema, cyanosis or clubbing Objective Data Vital Signs Vital Signs: Vital Signs - 24 hr 04/01/24 11:53 04/01/24 12:00 04/01/24 12:00 Temperature 97.7 F Pulse Rate 89 95 89 Respiratory Rate 16 16 Blood Pressure 131/84 Pulse Oximetry 92 92 Oxygen Delivery Nasal Cannula Oxygen Flow Rate 2 04/01/24 13:44 04/01/24 13:54 04/01/24 16:00 Temperature 97.6 F Pulse Rate 104 H 105 H 100 Respiratory Rate 18 18 20 Blood Pressure 131/70 Pulse Oximetry 93 Oxygen Delivery Oxygen Flow Rate 04/01/24 14:00 04/01/24 16:00 04/01/24 16:00 Temperature Pulse Rate 86 101 H 100 Respiratory Rate 20 Blood Pressure Pulse Oximetry 93 Oxygen Delivery Nasal Cannula Oxygen Flow Rate 2 04/01/24 19:34 04/01/24 19:56 04/01/24 19:56 Temperature 97.6 F Pulse Rate 92 94 Respiratory Rate 20 17 Blood Pressure 128/74 Pulse Oximetry 96 96 Oxygen Delivery Nasal Cannula Oxygen Flow Rate 2 04/01/24 20:02 04/01/24 20:00 04/01/24 21:00 Temperature Pulse Rate 93 90 93 Respiratory Rate 17 17 Blood Pressure Pulse Oximetry 96 Oxygen Delivery Nasal Cannula Oxygen Flow Rate 2 04/01/24 22:00 04/01/24 23:21 04/01/24 23:32 Temperature Pulse Rate 91 91 82 Respiratory Rate 17 Blood Pressure Pulse Oximetry 96 Oxygen Delivery Nasal
[2024-04-02] MEDS: INSULIN ASPART (*BKC) 100 UNITS/ML SUB-Q ×2 (11:34→21:30)
[2024-04-02] MEDS: ENOXAPARIN 30 MG/0.3 ML SYRINGE SUB-Q (11:41)
[2024-04-02 11:54] LABS: Glucose Point of Care 288 mg/dl (65-105)
--- NOTE | 2024-04-02 15:38 | PC.NURSE ---
This patient, Angel Aceves, was transferred to [240 ] on 04/02/24 at 1510. Personal belongings sent with patient. Report given to [Devaughn JORGENSEN ]. Appropriate documentation sent with patient.
--- NOTE | 2024-04-02 15:40 | PC.NURSE ---
Patient received to room 240 from [facility] IMU. Patient oriented to new room at 1515 and shown call light and instructed to call for help. Patient resting comfortably
[2024-04-02 17:00] LABS: Glucose Point of Care 125 mg/dl (65-105)
[2024-04-02] MEDS: AZITHROMYCIN 500 MG/NS 250 ML 500 MG/250 ML BAG 250 MG IVPB (20:20)
[2024-04-02 20:33] LABS: Glucose Point of Care 204 mg/dl (65-105)
[2024-04-02] MEDS: INSULIN HUMAN ISOPHAN/REGULAR 70/30 (*BKC) 100 UNITS/ML 12 UNITS SUB-Q (21:31)
[2024-04-02] MEDS: IMIPRAMINE HCL 25 MG TABLET PO (21:44)
[2024-04-02] MEDS: cefTRIAXone 2 GM/NS 100 ML 2 GM/100 ML BAG IVPB (21:45)
[2024-04-03] VITALS (18 sets, daily range): BP systolic 102–144; BP diastolic 56–83; PULSE 77–91; RESP 18–20; TEMP 36.4–36.6; O2SAT 95–99
[2024-04-03 05:16] LABS: Basophils Percent Auto 0.4 % (0.2-1.2); Eosinophils Absolute Auto 0.2 K/mm3 (0-0.3); Eosinophils Percent Auto 2.1 % (0-4.4); Hematocrit 39.8 % (42.0-52.0); Hemoglobin 12.1 g/dL (14.0-18.0); Immature Granulocyte Absolute 0.03 K/mm3 (0.00-0.031); Immature Granulocyte Percent A 0.4 % (0-0.5); Lymphocytes Absolute Auto 1.65 K/mm3 (0.9-3.2); Lymphocytes Percent Auto 23.5 % (18.3-44.2); Mean Corpuscular HGB Conc 30.4 g/dl (32-36); Mean Corpuscular Hemoglobin 27.7 pg (26-34); Mean Corpuscular Volume 91.1 fl (80-100); Monocytes Absolute Auto 0.5 K/mm3 (0.1-0.6); Monocytes Percent Auto 7.7 % (2.6-8.5); Neutrophils Absolute Auto 4.6 K/mm3 (1.3-6.7); Neutrophils Percent Auto 65.9 % (45.5-73.1); Platelet Count Result 176 k/mm3 (150-375); Red Blood Count 4.37 M/mm3 (4.6-6.20); Red Cell Distribution Width 14.8 % (11.5-14.5)
[2024-04-03 05:29] LABS: Alanine Aminotransferase 46 U/L (6-50); Albumin Level 3.4 g/dL (3.5-5.1); Alkaline Phosphatase 108 U/L (38-126); Anion Gap 8 mmol/L (4-12); Aspartate Amino Transferase 34 U/L (17-59); Bilirubin,Total 0.3 mg/dL (0.2-1.3); Blood Urea Nitrogen 42 mg/dL (9-20); Calcium 8.6 mg/dL (8.4-10.2); Carbon Dioxide 31 mmol/L (22-30); Chloride 104 mmol/L (98-107); Estimated CRCL calculation 29 ml/min; Estimated Glomerular Filt Rate 38; Glucose 127 mg/dL (65-110); Magnesium 2.3 mg/dL (1.6-2.3); Potassium 3.8 mmol/L (3.4-5.0); Sodium 143 mmol/L (137-145)
[2024-04-03] MEDS: LEVALBUTEROL NEB 1.25 MG/3 ML 0.63 MG INHALATION ×3 (07:22→20:12)
[2024-04-03 08:24] LABS: Glucose Point of Care 105 mg/dl (65-105)
[2024-04-03] MEDS: carvediloL 12.5 MG TABLET PO ×2 (08:37→21:27)
[2024-04-03] MEDS: ASPIRIN 81 MG CHEWABLE TABLET PO (08:37)
[2024-04-03] MEDS: ATORVASTATIN 40 MG TABLET 80 MG PO (08:37)
[2024-04-03] MEDS: TAMSULOSIN HCL 0.4 MG CAPSULE PO (08:38)
[2024-04-03] MEDS: PRAMIPEXOLE 0.5 MG TABLET PO (08:38)
[2024-04-03] MEDS: ENOXAPARIN 30 MG/0.3 ML SYRINGE SUB-Q (08:38)
[2024-04-03] MEDS: SACUBITRIL/VALSARTAN 24-26 MG TABLET 1 TAB PO ×2 (08:38→21:27)
[2024-04-03] MEDS: GABAPENTIN 300 MG CAPSULE 600 MG PO ×2 (08:38→21:27)
--- NOTE | 2024-04-03 10:43 | PC.NURSE ---
patient refusing bed alarm as he states I have not had any alarms on since being here and I am not an invalid and won't be treated as such. Patient and instructed on why patient qualifies for bed alarm and instructed not to get up alone. Educated on how to use call light.
[2024-04-03] MEDS: INSULIN HUMAN NPH (*BKC) 100 UNITS/ML 15 UNITS SUB-Q (11:04)
[2024-04-03 12:08] LABS: Glucose Point of Care 222 mg/dl (65-105)
[2024-04-03] MEDS: INSULIN ASPART (*BKC) 100 UNITS/ML SUB-Q ×3 (12:30→17:45)
--- NOTE | 2024-04-03 12:30 | PM.IMPN ---
Progress Note: A&P Assessment and Plan (1) Pneumonia: Code(s): J18.9 - Pneumonia, unspecified organism Status: Acute Assessment and Plan: Continue ceftriaxone and azithromycin 04/03/24 day 3 of 5 (2) Heart failure with reduced ejection fraction: Code(s): I50.20 - Unspecified systolic (congestive) heart failure Status: Acute Assessment and Plan: CM vs multivessel CAD vs both Continue Entresto and Coreg and add cooper and Jardiance later Complete eval per cardiology recommendations (3) Acute hypoxic respiratory failure: Code(s): J96.01 - Acute respiratory failure with hypoxia Status: Acute Assessment and Plan: Due to pneumonia Wean oxygen as possible (4) Elevated troponin: Code(s): R79.89 - Other specified abnormal findings of blood chemistry Status: Acute Assessment and Plan: No ACS CM (5) T2DM (type 2 diabetes mellitus): Code(s): E11.9 - Type 2 diabetes mellitus without complications Status: Acute Assessment and Plan: 04/03 reduced NPH to about 2/3 of home dose due to improved diet and compliance in hospital and dramatic drop in glucose (6) Elevated brain natriuretic peptide (BNP) level: Code(s): R79.89 - Other specified abnormal findings of blood chemistry Status: Acute Assessment and Plan: CM No acute CHF Plan Heart failure with reduced ejection fraction EF 20% leg started Entresto. Creatinine bumped up today. Will continue to monitor. Plans to add spironolactone SGOT 2 inhibitors eventually. Subjective Date/time seen: 04/03/24 12:30 Interval history: Admitted with shortness of breath. Chest x-ray with bilateral lower lobe infiltrates. Treated for pneumonia. Echo with ejection fraction 10-15%. Feeling better today. Still requiring oxygen. Tolerating diet. No chest pain. No shortness of breath at rest or with conversation. No edema. No GI or complaints. No abnormal bleeding. Review of Systems Review of Systems: All systems reviewed & are unremarkable except as noted in HPI and below Exam Narrative: HEENT: PERRL, sclerae nonicteric, pharyngeal mucosa pink and intact NECK: No JVD CHEST: Clear to auscultation. Normal effort. HEART: NL S1/S2, regular, no murmur ABDOMEN: BS+, soft, nontender, no mass, no bruits EXTREMITIES: No cyanosis, edema, or clubbing NEUROLOGIC: CN intact and symmetric to inspection. MUSCULOSKELETAL: Tone and strength symmetric. PSYCH: Alert. Oriented to person, place, and time. Objective Data Vital Signs Vital Signs: Vital Signs - 24 hr 04/02/24 12:55 04/02/24 13:23 04/02/24 13:35 Temperature Pulse Rate 95 90 Respiratory Rate 18 18 Blood Pressure Pulse Oximetry Oxygen Delivery Nasal Cannula Oxygen Flow Rate 2 04/02/24 14:38 04/02/24 15:48 04/02/24 16:00 Temperature 96.8 F L Pulse Rate 90 91 Respiratory Rate 17 Blood Pressure 131/76 Pulse Oximetry 96 Oxygen Delivery Nasal Cannula Oxygen Flow Rate 2 04/02/24 17:52 04/02/24 19:37 04/02/24 20:17 Temperature Pulse Rate Respiratory Rate Blood Pressure Pulse Oximetry 96 96 92 Oxygen Delivery Nasal Cannula Nasal Cannula Nasal Cannula Oxygen Flow Rate 2 2 2 04/02/24 20:24 04/02/24 21:44 04/03/24 03:44 Temperature 97.0 F L 97.6 F Pulse Rate 82 86 91 Respiratory Rate 20 20 Blood Pressure 113/63 144/83 H Pulse Oximetry 96 95 Oxygen Delivery Oxygen Flow Rate 04/02/24 20:00 04/03/24 00:00 04/03/24 04:00 Temperature Pulse Rate 80 80 85 Respiratory Rate Blood Pressure Pulse Oximetry Oxygen Delivery Oxygen Flow Rate 04/02/24 20:15 04/02/24 20:25 04/03/24 07:20 Temperature Pulse Rate 84 82 84 Respiratory Rate 18 18 18 Blood Pressure Pulse Oximetry 99 Oxygen Delivery Nasal Cannula Oxygen Flow Rate 2 04/03/24 07:20 04/03/24 07:30 04/03/24 08:37 Temperature Pulse Rate 84 85 88
--- NOTE | 2024-04-03 14:06 | PM.PNCARD ---
Progress Note: A&P Assessment and Plan (1) Elevated troponin: Code(s): R79.89 - Other specified abnormal findings of blood chemistry Status: Acute Plan NSTEMI Acute on chronic systolic heart failure, compensated Hypertension control Diabetes mellitus type 2 CKD stage 3 Plan Left heart catheterization on Friday Eulalio p.r.n. Continue carvedilol Continue hydralazine Aspirin 81 mg a day Continue statin Subjective Date/time seen: 04/03/24 14:06 Interval history: No acute events Review of Systems Review of Systems: All systems reviewed & are unremarkable except as noted in HPI and below Exam Const: General: comfortable and no acute distress Other: Able to lie flat HENMT: Face/Nose/Sinus: Normal nares present and no epistaxis Mouth: Yes moist mucous membranes Eyes: Sclera: sclerae normal Pupils: Equal, round and reactive pupils present Neck: Neck: supple and no JVD Carotids: no bruits Resp: Auscultation: clear to auscultation bilaterally and lung sounds not diminished Other: No chest wall tenderness Cardio: Rate: regular rate Rhythm: regular rhythm Heart sounds: no gallops, no murmurs and no rubs Skin: General skin exam: normal color, rashes and/or lesions noted and no erythema Other: Warm Extrem: General: no edema Other: Normal capillary refills Intact distal pulses. Objective Data Vital Signs Vital Signs: Vital Signs - 24 hr 04/02/24 14:38 04/02/24 15:48 04/02/24 16:00 Temperature 36.0 C L Pulse Rate 90 91 Respiratory Rate 17 Blood Pressure 131/76 Pulse Oximetry 96 Oxygen Delivery Nasal Cannula Oxygen Flow Rate 2 04/02/24 17:52 04/02/24 19:37 04/02/24 20:17 Temperature Pulse Rate Respiratory Rate Blood Pressure Pulse Oximetry 96 96 92 Oxygen Delivery Nasal Cannula Nasal Cannula Nasal Cannula Oxygen Flow Rate 2 2 2 04/02/24 20:24 04/02/24 21:44 04/03/24 03:44 Temperature 36.1 C L 36.4 C Pulse Rate 82 86 91 Respiratory Rate 20 20 Blood Pressure 113/63 144/83 H Pulse Oximetry 96 95 Oxygen Delivery Oxygen Flow Rate 04/02/24 20:00 04/03/24 00:00 04/03/24 04:00 Temperature Pulse Rate 80 80 85 Respiratory Rate Blood Pressure Pulse Oximetry Oxygen Delivery Oxygen Flow Rate 04/02/24 20:15 04/02/24 20:25 04/03/24 07:20 Temperature Pulse Rate 84 82 84 Respiratory Rate 18 18 18 Blood Pressure Pulse Oximetry 99 Oxygen Delivery Nasal Cannula Oxygen Flow Rate 2 04/03/24 07:20 04/03/24 07:30 04/03/24 08:37 Temperature Pulse Rate 84 85 88 Respiratory Rate 18 18 Blood Pressure Pulse Oximetry Oxygen Delivery Oxygen Flow Rate 04/03/24 08:00 04/03/24 08:00 04/03/24 08:30 Temperature 36.4 C Pulse Rate 79 79 Respiratory Rate 18 Blood Pressure 102/56 L Pulse Oximetry 95 95 Oxygen Delivery Nasal Cannula Oxygen Flow Rate 2 04/03/24 12:00 04/03/24 13:20 04/03/24 13:30 Temperature Pulse Rate 77 86 87 Respiratory Rate 18 18 Blood Pressure Pulse Oximetry Oxygen Delivery Oxygen Flow Rate Intake/Output Intake/Output: Intake & Output 03/31/24 04/01/24 04/02/24 04/03/24 23:59 23:59 23:59 23:59 Intake Total 2080.8 2450 1080 Balance 2080.8 2450 1080 Meds/Results Medications: Active Medications Generic Name Dose Route Start Last Admin Trade Name Freq PRN Reason Stop Dose Admin Acetaminophen 1,000 mg 03/31/24 23:29 Acetaminophen 500 Mg Tablet PO Q6H PRN Pain Hydrocodone Bitart/Acetaminophen 1 tab 03/31/24 22:38 Hydrocodone/Acetaminophen (*Crx) 5-325 Mg Tablet PO Q4H PRN Moderate Pain (4-6) Al Hydrox/Mg Hydrox/Simethicone 30 ml 03/31/24 22:38 Mag Hydrox/Al Hydrox/Simeth 30 Ml Udc PO QID PRN Dyspepsia Aspirin 81 mg 04/01/24 09:00 04/03/24 08:37 Aspirin 81 Mg Chewable Tablet PO 81 mg DAILY DWAYNE Administration A
[2024-04-03 17:27] LABS: Glucose Point of Care 177 mg/dl (65-105)
[2024-04-03] MEDS: INSULIN HUMAN NPH (*BKC) 100 UNITS/ML SUB-Q (17:45)
[2024-04-03] MEDS: AZITHROMYCIN 500 MG/NS 250 ML 500 MG/250 ML BAG 250 MG IVPB (20:15)
[2024-04-03 20:51] LABS: Glucose Point of Care 182 mg/dl (65-105)
[2024-04-03] MEDS: IMIPRAMINE HCL 25 MG TABLET PO (21:27)
[2024-04-03] MEDS: cefTRIAXone 2 GM/NS 100 ML 2 GM/100 ML BAG IVPB (21:30)
[2024-04-04] VITALS (14 sets, daily range): BP systolic 120–132; BP diastolic 62–75; PULSE 79–94; RESP 16–20; TEMP 36.4–36.6; O2SAT 92–99
[2024-04-04 05:17] LABS: Anion Gap 2 mmol/L (4-12); Blood Urea Nitrogen 38 mg/dL (9-20); Calcium 8.6 mg/dL (8.4-10.2); Carbon Dioxide 34 mmol/L (22-30); Chloride 104 mmol/L (98-107); Estimated CRCL calculation 31 ml/min; Estimated Glomerular Filt Rate 41; Glucose 158 mg/dL (65-110); Potassium 4.1 mmol/L (3.4-5.0); Sodium 140 mmol/L (137-145)
--- NOTE | 2024-04-04 06:26 | PCRCNOTE ---
Patient refused 0200 due to wanting sleep. Treatment to resume at 0800
[2024-04-04] MEDS: LEVALBUTEROL NEB 1.25 MG/3 ML 0.63 MG INHALATION ×2 (07:15→13:16)
[2024-04-04 08:15] LABS: Glucose Point of Care 166 mg/dl (65-105)
[2024-04-04] MEDS: carvediloL 12.5 MG TABLET PO ×2 (08:47→20:13)
[2024-04-04] MEDS: ATORVASTATIN 40 MG TABLET 80 MG PO (08:47)
[2024-04-04] MEDS: TAMSULOSIN HCL 0.4 MG CAPSULE PO (08:47)
[2024-04-04] MEDS: ASPIRIN 81 MG CHEWABLE TABLET PO (08:47)
[2024-04-04] MEDS: ENOXAPARIN 30 MG/0.3 ML SYRINGE SUB-Q (08:48)
[2024-04-04] MEDS: SACUBITRIL/VALSARTAN 24-26 MG TABLET 1 TAB PO ×2 (08:48→20:13)
[2024-04-04] MEDS: PRAMIPEXOLE 0.5 MG TABLET PO (08:48)
[2024-04-04] MEDS: GABAPENTIN 300 MG CAPSULE 600 MG PO ×2 (08:48→20:13)
[2024-04-04] MEDS: INSULIN HUMAN NPH (*BKC) 100 UNITS/ML 15 UNITS SUB-Q (08:49)
[2024-04-04] MEDS: INSULIN ASPART (*BKC) 100 UNITS/ML SUB-Q ×4 (08:52→17:47)
--- NOTE | 2024-04-04 11:34 | PM.PNCARD ---
Progress Note: A&P Assessment and Plan (1) Elevated troponin: Code(s): R79.89 - Other specified abnormal findings of blood chemistry Status: Acute Plan NSTEMI Acute on chronic systolic heart failure, decompensated Hypertension control Diabetes mellitus type 2 CKD stage 3 Plan Left heart catheterization tomorrow Lasix 40 mg IV b.i.d. Continue carvedilol Continue hydralazine Aspirin 81 mg a day Continue statin Subjective Date/time seen: 04/04/24 11:34 Interval history: No acute events Review of Systems Review of Systems: All systems reviewed & are unremarkable except as noted in HPI and below Exam Neck: Neck: supple and no JVD Carotids: no bruits Resp: Auscultation: crackles bilateral at the base and lung sounds not diminished Other: No chest wall tenderness Cardio: Rate: regular rate Rhythm: regular rhythm Heart sounds: no gallops, no murmurs and no rubs GI: GI Palp: Yes Soft to palpation and No Tenderness to palpation present (GI) Auscultation: normal bowel sounds Skin: General skin exam: normal color, rashes and/or lesions noted and no erythema Other: Warm Extrem: Other: Bilateral lower extremity edema Objective Data Vital Signs Vital Signs: Vital Signs - 24 hr 04/03/24 12:00 04/03/24 13:20 04/03/24 13:30 Temperature Pulse Rate 77 86 87 Respiratory Rate 18 18 Blood Pressure Pulse Oximetry Oxygen Delivery Oxygen Flow Rate 04/03/24 16:00 04/03/24 16:00 04/03/24 19:25 Temperature 36.4 C 36.6 C Pulse Rate 83 80 82 Respiratory Rate 18 18 Blood Pressure 118/63 135/72 Pulse Oximetry 96 97 Oxygen Delivery Oxygen Flow Rate 04/03/24 20:00 04/03/24 20:12 04/03/24 20:13 Temperature Pulse Rate 84 84 Respiratory Rate 18 Blood Pressure Pulse Oximetry 97 95 Oxygen Delivery Nasal Cannula Nasal Cannula Oxygen Flow Rate 2 2 04/03/24 20:20 04/03/24 21:27 04/03/24 20:00 Temperature Pulse Rate 86 86 80 Respiratory Rate 18 Blood Pressure Pulse Oximetry Oxygen Delivery Oxygen Flow Rate 04/04/24 04:00 04/04/24 06:00 04/04/24 07:15 Temperature 36.4 C L Pulse Rate 83 88 83 Respiratory Rate 18 18 Blood Pressure 120/75 Pulse Oximetry 97 99 Oxygen Delivery Nasal Cannula Oxygen Flow Rate 2 04/04/24 07:15 04/04/24 07:25 04/04/24 08:00 Temperature Pulse Rate 83 84 89 Respiratory Rate 18 18 20 Blood Pressure 123/68 Pulse Oximetry 93 Oxygen Delivery Oxygen Flow Rate 04/04/24 08:47 04/04/24 08:00 Temperature Pulse Rate 89 94 Respiratory Rate Blood Pressure Pulse Oximetry Oxygen Delivery Oxygen Flow Rate Intake/Output Intake/Output: Intake & Output 04/01/24 04/02/24 04/03/24 04/04/24 23:59 23:59 23:59 23:59 Intake Total 2080.8 2450 2180 360 Balance 2080.8 2450 2180 360 Meds/Results Medications: Active Medications Generic Name Dose Route Start Last Admin Trade Name Freq PRN Reason Stop Dose Admin Acetaminophen 1,000 mg 03/31/24 23:29 Acetaminophen 500 Mg Tablet PO Q6H PRN Pain Hydrocodone Bitart/Acetaminophen 1 tab 03/31/24 22:38 Hydrocodone/Acetaminophen (*Crx) 5-325 Mg Tablet PO Q4H PRN Moderate Pain (4-6) Al Hydrox/Mg Hydrox/Simethicone 30 ml 03/31/24 22:38 Mag Hydrox/Al Hydrox/Simeth 30 Ml Udc PO QID PRN Dyspepsia Aspirin 81 mg 04/01/24 09:00 04/04/24 08:47 Aspirin 81 Mg Chewable Tablet PO 81 mg DAILY DWAYNE Administration Atorvastatin Calcium 80 mg 04/01/24 11:15 04/04/24 08:47 Atorvastatin 40 Mg Tablet PO 80 mg DAILY DWAYNE Administration Carvedilol 12.5 mg 04/01/24 23:35 04/04/24 08:47 Carvedilol 12.5 Mg Tablet PO 12.5 mg Q12HR DWAYNE Administration Dextrose 12.5 gm 04/01/24 15:49 Dextrose 50% 25 Gm/50 Ml Syringe IV PUSH PRN PRN Hypoglycemia Protocol Enoxaparin Sodium 30 mg 04/02/24 11:00 04/04/24 0
[2024-04-04 12:01] LABS: Glucose Point of Care 260 mg/dl (65-105)
--- NOTE | 2024-04-04 12:14 | PM.IMPN ---
Progress Note: A&P Assessment and Plan (1) Pneumonia: Code(s): J18.9 - Pneumonia, unspecified organism Status: Acute Assessment and Plan: Continue ceftriaxone and azithromycin 04/04/24 day 4 of 5 (2) Heart failure with reduced ejection fraction: Code(s): I50.20 - Unspecified systolic (congestive) heart failure Status: Acute Assessment and Plan: CM vs multivessel CAD vs both Continue Entresto and Coreg 04/04 added furosemide Add cooper and Jardiance later Complete eval per cardiology recommendations (3) Elevated troponin: Code(s): R79.89 - Other specified abnormal findings of blood chemistry Status: Acute Assessment and Plan: NSTEMI Cor angio planned for 04/05, so 04/04 ordered NPO after MN (4) Acute hypoxic respiratory failure: Code(s): J96.01 - Acute respiratory failure with hypoxia Status: Acute Assessment and Plan: Due to pneumonia Wean oxygen as possible (5) T2DM (type 2 diabetes mellitus): Code(s): E11.9 - Type 2 diabetes mellitus without complications Status: Acute Assessment and Plan: 04/03 reduced NPH to about 2/3 of home dose due to improved diet and compliance in hospital and dramatic drop in glucose 04/04 FBS 158 (6) CKD (chronic kidney disease) stage 3, GFR 30-59 ml/min: Code(s): N18.30 - Chronic kidney disease, stage 3 unspecified Status: Acute Assessment and Plan: Creatinine 04/02 1.7, 04/03 1.7, 04/04 1.6 Many worsen with coronary angio (7) Anemia: Code(s): D64.9 - Anemia, unspecified Status: Acute Assessment and Plan: Likely due to CKD 3 Iron, B12, stool for occult blood pending. Subjective Date/time seen: 04/04/24 12:14 Interval history: Admitted with shortness of breath. Chest x-ray with bilateral lower lobe infiltrates. Treated for pneumonia. Echo with ejection fraction 10-15%. Feeling better today. Still requiring oxygen. Tolerating diet. No chest pain. No shortness of breath at rest or with conversation. No edema. No GI or complaints. No abnormal bleeding. Review of Systems Review of Systems: All systems reviewed & are unremarkable except as noted in HPI and below Exam Narrative: HEENT: PERRL, sclerae nonicteric, pharyngeal mucosa pink and intact NECK: No JVD CHEST: Clear to auscultation. Normal effort. HEART: NL S1/S2, regular, no murmur ABDOMEN: BS+, soft, nontender, no mass, no bruits EXTREMITIES: 1+ ankle edema. NEUROLOGIC: CN intact and symmetric to inspection. MUSCULOSKELETAL: Tone and strength symmetric. PSYCH: Alert. Oriented to person, place, and time. Objective Data Vital Signs Vital Signs: Vital Signs - 24 hr 04/03/24 13:20 04/03/24 13:30 04/03/24 16:00 Temperature Pulse Rate 86 87 83 Respiratory Rate 18 18 Blood Pressure Pulse Oximetry Oxygen Delivery Oxygen Flow Rate 04/03/24 16:00 04/03/24 19:25 04/03/24 20:00 Temperature 97.6 F 97.9 F Pulse Rate 80 82 Respiratory Rate 18 18 Blood Pressure 118/63 135/72 Pulse Oximetry 96 97 97 Oxygen Delivery Nasal Cannula Oxygen Flow Rate 2 04/03/24 20:12 04/03/24 20:13 04/03/24 20:20 Temperature Pulse Rate 84 84 86 Respiratory Rate 18 18 Blood Pressure Pulse Oximetry 95 Oxygen Delivery Nasal Cannula Oxygen Flow Rate 2 04/03/24 21:27 04/03/24 20:00 04/04/24 04:00 Temperature Pulse Rate 86 80 83 Respiratory Rate Blood Pressure Pulse Oximetry Oxygen Delivery Oxygen Flow Rate 04/04/24 06:00 04/04/24 07:15 04/04/24 07:15 Temperature 97.5 F L Pulse Rate 88 83 83 Respiratory Rate 18 18 18 Blood Pressure 120/75 Pulse Oximetry 97 99 Oxygen Delivery Nasal Cannula Oxygen Flow Rate 2 04/04/24 07:25 04/04/24 08:00 04/04/24 08:47 Temperature Pulse Rate 84 89 89 Respiratory Rate 18 20 Blood Pressure 123/68 Pulse Oximetry 93 Oxygen Delivery Oxygen Flow Rate 0
[2024-04-04 14:03] LABS: Glucose Point of Care 309 mg/dl (65-105)
[2024-04-04 14:17] LABS: Alveolar/Arterial O2 Gradient 34.9 mmHg; Base Excess ABG 0.4 mEq/l (+/-2.0); Fractional Inspired Oxygen 28 %; HCO3 ABG 28.9 mEq/l (22.0-26.0); Oxygen Saturation ABG 94.9 % (95.0-100.0); Oxyhemoglobin 94.7 % THb (90.0-100.0); PO2 ABG 86.7 mmHg (80.0-100.0); Total Hemoglobin 12.7 g/dL (12.0-18.0)
[2024-04-04 14:18] LABS: pH ABG 7.259 (7.350-7.450)
[2024-04-04 14:19] LABS: Device NASAL CANNULA; Modified Allen's Test Pass; PCO2 ABG 66.1 mmHg (35.0-45.0); Site Drawn RIGHT RADIAL
[2024-04-04 16:26] LABS: Base Excess ABG 4.8 mEq/l (+/-2.0); Carboxyhemoglobin 0.7 % THb (0-2.0); Fractional Inspired Oxygen 28 %; HCO3 ABG 32.7 mEq/l (22.0-26.0); Methemoglobin ABG 0.3 %THb (0-1.5); Oxygen Saturation ABG 95.9 % (95.0-100.0); Oxyhemoglobin 95.5 % THb (90.0-100.0); PO2 ABG 89.6 mmHg (80.0-100.0); Reduced Hemoglobin 3.5 %THb (0-5.0); Total Hemoglobin 12.6 g/dL (12.0-18.0); pH ABG 7.318 (7.350-7.450)
[2024-04-04 16:27] LABS: Device BIPAP; Modified Allen's Test Pass; PCO2 ABG 65.3 mmHg (35.0-45.0); Site Drawn RIGHT RADIAL
[2024-04-04 16:28] LABS: Expiratory Pressure 8 cmH2O; Inspiratory Pressure 14 cmH2O
[2024-04-04 17:03] LABS: Glucose Point of Care 136 mg/dl (65-105)
[2024-04-04] MEDS: FUROSEMIDE INJ 40 MG/4 ML VIAL IV PUSH (17:45)
[2024-04-04] MEDS: INSULIN HUMAN NPH (*BKC) 100 UNITS/ML SUB-Q (17:51)
[2024-04-04 19:53] LABS: Glucose Point of Care 176 mg/dl (65-105)
[2024-04-04] MEDS: IMIPRAMINE HCL 25 MG TABLET PO (20:13)
[2024-04-04] MEDS: cefTRIAXone 2 GM/NS 100 ML 2 GM/100 ML BAG IVPB (20:14)
[2024-04-04] MEDS: AZITHROMYCIN 500 MG/NS 250 ML 500 MG/250 ML BAG 250 MG IVPB (20:14)
[2024-04-05] VITALS (39 sets, daily range): BP systolic 104–136; BP diastolic 58–84; PULSE 78–95; RESP 14–20; TEMP 36.1–36.6; O2SAT 90–100
[2024-04-05 05:16] LABS: Hemoglobin 11.6 g/dL (14.0-18.0); Mean Corpuscular HGB Conc 29.7 g/dl (32-36); Mean Corpuscular Hemoglobin 27.4 pg (26-34); Mean Platelet Volume 10.1 fl (7.4-10.4); Platelet Count Result 141 k/mm3 (150-375); Red Blood Count 4.24 M/mm3 (4.6-6.20); Red Cell Distribution Width 14.7 % (11.5-14.5); White Blood Count 6.9 K/mm3 (4.5-10.0)
[2024-04-05 05:31] LABS: Anion Gap 4 mmol/L (4-12); Blood Urea Nitrogen 37 mg/dL (9-20); Calcium 8.5 mg/dL (8.4-10.2); Carbon Dioxide 33 mmol/L (22-30); Chloride 104 mmol/L (98-107); Estimated CRCL calculation 33 ml/min; Estimated Glomerular Filt Rate 44; Glucose 196 mg/dL (65-110); Potassium 3.9 mmol/L (3.4-5.0); Sodium 141 mmol/L (137-145)
--- NOTE | 2024-04-05 05:44 | PCRCNOTE ---
Patient refused apnea link last night, stating he has already had a sleep study. He is supposed to be wearing a cpap at home. RT and RN encouraged use of bipap last night to no avail. Patient called out around 0200 wanting to try bipap. Patient wore for a couple of hours.
[2024-04-05 06:34] LABS: Folic Acid 6.1 ng/mL (2.76->20)
[2024-04-05 08:27] LABS: Glucose Point of Care 209 mg/dl (65-105)
--- NOTE | 2024-04-05 08:40 | PM.CNPUL ---
Assessment and Plan Assessment and plan (1) Acute hypoxic respiratory failure: Code(s): J96.01 - Acute respiratory failure with hypoxia Status: Acute Assessment and Plan: This 83-year-old man with a history of obesity presented with a 2-week history of shortness of breath and hypoxemic hypercapnic respiratory failure. He has been diagnosed with systolic congestive heart failure and is currently receiving treatment. Additionally, he is being treated for a possible lower respiratory tract infection, although the chest x-ray does not clearly indicate infiltrates. On physical examination, he has bilateral crackles at the lung bases, consistent with congestive heart failure. There is a potential pleural effusion on the right side. Arterial blood gases confirm hypoxemic hypercapnic respiratory failure, likely related to acute hypercapnic respiratory failure due to congestive heart failure. The patient has been using home oxygen for reasons that remain unclear. He is a lifelong non-smoker, and his nocturnal hypoxemia may be associated with obesity-related obstructive sleep apnea. It is unclear whether he has had a previous sleep study. Plan: We will proceed with a diagnostic chest CT to differentiate between congestive heart failure, right lower lobe pneumonia, and right pleural effusion. I will also repeat arterial blood gases. Further recommendations will be based on the chest CT results. I will continue to monitor the patient in collaboration with you. (2) Elevated troponin: Code(s): R79.89 - Other specified abnormal findings of blood chemistry Status: Acute (3) T2DM (type 2 diabetes mellitus): Code(s): E11.9 - Type 2 diabetes mellitus without complications Status: Acute (4) Heart failure with reduced ejection fraction: Code(s): I50.20 - Unspecified systolic (congestive) heart failure Status: Acute (5) CKD (chronic kidney disease) stage 3, GFR 30-59 ml/min: Code(s): N18.30 - Chronic kidney disease, stage 3 unspecified Status: Acute History of Present Illness History of Present Illness Consult date: 04/05/24 Chief complaint: NSTEMI Narrative: This 83-year-old man presented with a 2-week history of shortness of breath. The patient is a poor historian and mentioned that he came in because he believed he had pneumonia, having had a previous episode in the left lung. Upon further questioning, he admitted to progressively worsening shortness of breath over the past 2 weeks. He denied other respiratory symptoms such as chest pain, palpitations, orthopnea, hemoptysis, night sweats, fever, or chills. He has chronic lower extremity edema and has been on a diuretic. The patient reported using home oxygen via nasal cannula, though it is unclear whether he has a previous respiratory disease or if his nocturnal hypoxemia is solely related to morbid obesity. He has never had a sleep study. Upon admission, he was found to have systolic congestive heart failure with a very low ejection fraction (EF). He has been evaluated by Cardiology Services and is currently receiving treatment for congestive heart failure. He is also being treated with antibiotics for a possible right lower lobe pneumonia, as a chest x-ray suggested this possibility. His B-type natriuretic peptide (BNP) level was significantly elevated. Review of Systems Review of Systems: All systems reviewed & are unremarkable except as noted in HPI and below PMFSH Family History Family History Father History of blood clots Social History Social History Smoking status: Never smoker Alcohol intake: never Substance use: never Do You Feel Safe in your Home?: No Lack of Transportation: YES Lack of Food: Never True Current Housing: I Have Housing Concerned About Future Housing: No Difficulty Paying Gas/Electric Bills: No
[2024-04-05] MEDS: ASPIRIN 81 MG CHEWABLE TABLET PO (09:05)
[2024-04-05] MEDS: TAMSULOSIN HCL 0.4 MG CAPSULE PO (09:05)
[2024-04-05] MEDS: ATORVASTATIN 40 MG TABLET 80 MG PO (09:05)
[2024-04-05] MEDS: PRAMIPEXOLE 0.5 MG TABLET PO (09:05)
[2024-04-05] MEDS: GABAPENTIN 300 MG CAPSULE 600 MG PO ×2 (09:05→20:23)
[2024-04-05] MEDS: SACUBITRIL/VALSARTAN 24-26 MG TABLET 1 TAB PO ×2 (09:05→20:22)
[2024-04-05] MEDS: carvediloL 12.5 MG TABLET PO ×2 (09:05→20:22)
--- NOTE | 2024-04-05 10:20 | WPDMODSED ---
Moderate Sedation Note-Pt Data Patient Data Diagnosis: Cardiomyopathy with low ejection fraction, new diagnosis Present Complaint: shortness of breath Procedure to be performed/Plan: coronary angiography Allergies Allergy/AdvReac Type Severity Reaction Status Date / Time No Known Allergies Allergy Verified 03/31/24 23:49 Home Medications Medication Instructions Recorded Confirmed Type acetaminophen 500 mg tablet 1,000 mg PO Q6H PRN Pain 03/31/24 03/31/24 History aspirin 81 mg chewable tablet 81 mg PO DAILY 03/31/24 03/31/24 History carvedilol 12.5 mg tablet 12.5 mg PO BID 03/31/24 03/31/24 History cholecalciferol (vitamin D3) 10 10 mcg PO DAILY 03/31/24 03/31/24 History mcg (400 unit) tablet cyanocobalamin (vitamin B-12) 100 50 mcg PO DAILY 03/31/24 03/31/24 History mcg tablet furosemide 40 mg tablet 20 mg PO QPM 03/31/24 03/31/24 History furosemide 40 mg tablet 40 mg PO DAILY 03/31/24 03/31/24 History gabapentin 600 mg tablet 600 mg PO BID 03/31/24 03/31/24 History hydralazine 25 mg tablet 25 mg PO Q8H 03/31/24 03/31/24 History imipramine HCl 25 mg tablet 25 mg PO HS 03/31/24 03/31/24 History insulin human U-100 NPH-regulr 12 unit subcut QHS 03/31/24 03/31/24 History 70-30 mix 100 unit/mL subcutaneous susp (Novolin 70/30 U-100 Insulin) insulin human U-100 NPH-regulr 34 unit subcut QA 03/31/24 03/31/24 History 70-30 mix 100 unit/mL subcutaneous susp (Novolin 70/30 U-100 Insulin) potassium chloride 20 mEq 10 meq PO QHS 03/31/24 03/31/24 History tablet,extended release(part/cryst) potassium chloride 20 mEq 20 meq PO DAILY 03/31/24 03/31/24 History tablet,extended release(part/cryst) pramipexole 0.5 mg tablet 0.5 mg PO DAILY 03/31/24 03/31/24 History tamsulosin 0.4 mg capsule 0.4 mg PO DAILY 03/31/24 03/31/24 History Current Medications: Active Medications Acetaminophen (Acetaminophen 500 Mg Tablet) 1,000 mg PO Q6H PRN PRN Reason: Pain Hydrocodone Bitart/Acetaminophen (Hydrocodone/Acetaminophen (*Crx) 5-325 Mg Tablet) 1 tab PO Q4H PRN PRN Reason: Moderate Pain (4-6) Al Hydrox/Mg Hydrox/Simethicone (Mag Hydrox/Al Hydrox/Simeth 30 Ml Udc) 30 ml PO QID PRN PRN Reason: Dyspepsia Aspirin (Aspirin 81 Mg Chewable Tablet) 81 mg PO DAILY [facility] Last Admin: 04/05/24 09:05 Dose: 81 mg Atorvastatin Calcium (Atorvastatin 40 Mg Tablet) 80 mg PO DAILY [facility] Last Admin: 04/05/24 09:05 Dose: 80 mg Carvedilol (Carvedilol 12.5 Mg Tablet) 12.5 mg PO Q12HR [facility] Last Admin: 04/05/24 09:05 Dose: 12.5 mg Dextrose (Dextrose 50% 25 Gm/50 Ml Syringe) 12.5 gm IV PUSH PRN PRN; Protocol PRN Reason: Hypoglycemia Enoxaparin Sodium (Enoxaparin 40 Mg/0.4 Ml Syringe) 40 mg SUB-Q DAILY [facility] Last Admin: 04/05/24 09:10 Dose: Not Given Furosemide (Furosemide Inj 40 Mg/4 Ml Vial) 40 mg IV PUSH BID [facility] Last Admin: 04/05/24 09:10 Dose: Not Given Gabapentin (Gabapentin 300 Mg Capsule) 600 mg PO Q12HR [facility] Last Admin: 04/05/24 09:05 Dose: 600 mg Glucagon (Glucagon For Inj 1 Mg Vial) 1 mg IM PRN PRN; Protocol PRN Reason: Hypoglycemia Glucose (Glucose Oral Gel 15 Gm Of Glucse In 37.5 Gm Tube) 15 gm PO PRN PRN; Protocol PRN Reason: Hypoglycemia Ceftriaxone Sodium (Rocephin 2 Gm/Ns 100 Ml) 2 gm in 100 mls @ 200 mls/hr IVPB DAILY@2100 [facility] Last Admin: 04/04/24 20:14 Dose: 200 mls/hr Azithromycin (Zithromax) 500 mg in 250 mls @ 250 mls/hr IVPB DAILY@2100 [facility] Last Admin: 04/04/24 20:14 Dose: 250 mls/hr Dextrose (Dextrose 5% 1,000 Ml) 1,000 mls @ 100 mls/hr IVPB PRN PRN; Protocol PRN Reason: Hypoglycemia Imipramine HCl (Imipramine Hcl 25 Mg Tablet) 25 mg PO HS [facility] Last Admin: 04/04/24 20:13 Dose: 25 mg Insulin Aspart (Insulin Aspart (*Bkc) 100 Units/Ml) 3 - 6 units SUB-Q TIDWM [facility]; Protocol Last Admin: 04/05/24 09:10 Dose: Not Given Insulin Aspart (Insulin Aspart (*Bkc) 100 Units/Ml) 1 - 3 units SUB-Q HS [facility]; Protocol Last Admin: 04/04/24 20:12 Dose: Not Given Insulin Aspart (I
--- NOTE | 2024-04-05 10:52 | PC.NURSE ---
Patient off floor to quality lab technician at 1017.
--- NOTE | 2024-04-05 11:32 | ECG_ITS ---
Test Date: 2024-04-05 12:01:27 Measurements Intervals [place] Rate: 83 P: 28 WV: 160 QRS: 136 QRSD: 158 T: 86 QT: 395 QTc: 465 Interpretive Statements SINUS RHYTHM MARKED RIGHT AXIS DEVIATION [QRS AXIS > 100] RIGHT BUNDLE BRANCH BLOCK [120+ ms QRS DURATION, UPRIGHT V1, 40+ ms S IN I/aVL/V4/V5/V6] ANTEROSEPTAL MYOCARDIAL INFARCTION , OLD COMPARED WITH 03/31/2024 NO DIFFERENCE ABNORMAL ECG Compared to ECG 03/31/2024 23:13:27 No significant changes Electronically Signed On 04-05-2024 15:28:57 CDT by Yared Cooper M.D.
--- NOTE | 2024-04-05 11:36 | WPDCARDPROC ---
Cardiac Cath Procedure Note Date of procedure:: 04/05/24 Performing physician:: Yared Cooper MD Indication:: new diagnosis severe cardiomyopathy Brief clinical history:: this is an 83-year-old man apparently without previous cardiac history who has hypertension and diabetes in presents with congestive heart failure and has a very low ejection fraction. He has been started on medical therapy and is doing better. Angiography is now being performed to assess his coronary anatomy given the new diagnosis of severe cardiomyopathy Procedure Procedure performed:: coronary angiography PCI(MYRIAM) to proximal LAD Sedation/Medication given:: fentanyl 50 mg Versed 2 mg case start time 10:34 a.m. case end time 1128 a.m. sedation provided by Ashlyn Ivey RN, trained observer Access site:: right femoral artery Estimated blood loss:: 30 cc Procedure note:: patient was brought to the cardiac catheterization lab in the postabsorptive state where the right femoral triangle was prepped and draped in the usual fashion. 1% lidocaine was infiltrated locally and the right femoral artery was punctured and a 5 [place] vascular sheath was placed. The patient received sedation as detailed above and very shortly thereafter was unresponsive and breathing poorly with poor oxygen saturation. He was placed on face mask with nasopharyngeal airway in place. He was then given Romazicon and Narcan to reverse the sedation. Following this the patient's respiratory status improved and oxygenation normalized and we were able to continue with coronary angiography. I used a 5 [place] FL4 catheter to engage and inject the left coronary artery in multiple projections. A 5 [place] JR4 catheter was utilized to engage and inject the right coronary artery. A 5 [place] angled pigtail catheter was used to measure left-sided hemodynamics. Because of known low ejection fraction and an element of chronic kidney disease I elected not to inject the left ventriculogram. Following completion of the angiograms PCI of the proximal LAD was recommended and carried out as detailed below. Prior to PCI the patient received orally 600 mg of clopidogrel. The 5 [place] sheath was changed out over the guidewire for a 6 [place] sheath. He received anticoagulation with bolus and infusion of Angiomax for this intervention. The procedure was made challenging and somewhat difficult because of the sedation issues described above other than this the procedure was uncomplicated and there was no evidence of groin hematoma when he left the cardiac catheterization lab. Following completion of the case the 6 [place] sheath was sutured in position and he was taken to the holding area for post PCI recovery. Findings:: Hemodynamics: Central aortic pressure is 1 26/62 left ventricle 126 over 18 end-diastolic pressure 30. There is no gradient upon pullback across the aortic valve. The left main coronary artery is large in caliber and widely patent the left anterior descending is a large caliber vessel extending down to the apex. There is 99% stenosis in the proximal LAD with BLANQUITA 1 flow distal to this. On prolonged angiography the the LAD can seen to fill very slowly down to the apex but was sluggish filling due to the subtotal proximal stenosis. The circumflex is a moderate caliber artery giving rise to the marginal branches. The circumflex system is angiographically free of significant disease the right coronary artery is large in caliber and dominant to the posterior circulation. The right coronary artery is also large in caliber and free of significant disease. Intervention: The left main coronary artery was engaged using a 6 [place] CLS 3.5 guiding catheter. I used a 0.014 [employer] coronary wire to probe the subtotal LAD stenosis and advanced the wire into the distal segment of the LAD. The lesion was then pre-dilated using a 3 x 15 mm Panterra balloon which restored
--- NOTE | 2024-04-05 13:58 | PCPTNOTE ---
attempted PT treatment, pt moved room and per RN is now in the electrical laboratory technician for the next couple hours, will follow
--- NOTE | 2024-04-05 14:50 | PM.IMPN ---
Progress Note: A&P Assessment and Plan (1) Pneumonia: Code(s): J18.9 - Pneumonia, unspecified organism Status: Acute Assessment and Plan: Continue ceftriaxone and azithromycin CT chest reviewed. No evidence of pneumonia will stop antibiotics (2) Heart failure with reduced ejection fraction: Code(s): I50.20 - Unspecified systolic (congestive) heart failure Status: Acute Assessment and Plan: CM vs multivessel CAD vs both Continue Entresto and Coreg 04/04 added furosemide Add cooper and Jardiance later ischemic evaluation today (3) Elevated troponin: Code(s): R79.89 - Other specified abnormal findings of blood chemistry Status: Acute Assessment and Plan: NSTEMI plan for cardiac catheterization today (4) Acute hypoxic respiratory failure: Code(s): J96.01 - Acute respiratory failure with hypoxia Status: Acute Assessment and Plan: Due to pneumonia Wean oxygen as possible Pulmonary consulted for associated hypercapnic respiratory failure due has underlying ENRIQUE (5) T2DM (type 2 diabetes mellitus): Code(s): E11.9 - Type 2 diabetes mellitus without complications Status: Acute Assessment and Plan: 04/03 reduced NPH to about 2/3 of home dose due to improved diet and compliance in hospital and dramatic drop in glucose 04/04 FBS 158 (6) CKD (chronic kidney disease) stage 3, GFR 30-59 ml/min: Code(s): N18.30 - Chronic kidney disease, stage 3 unspecified Status: Acute Assessment and Plan: Creatinine 04/02 1.7, 04/03 1.7, 04/04 1.6 (7) Anemia: Code(s): D64.9 - Anemia, unspecified Status: Acute Assessment and Plan: Likely due to CKD 3 Iron, B12, stool for occult blood pending. Subjective Date/time seen: 04/05/24 14:50 Interval history: going for cath this a.m.. Feels about the same. Denies any shortness of breath. On oxygen which has been stable. Pulmonary consult note reviewed. No cough Review of Systems Review of Systems: All systems reviewed & are unremarkable except as noted in HPI and below Exam Narrative: HEENT: PERRL, sclerae nonicteric, pharyngeal mucosa pink and intact NECK: No JVD CHEST: Clear to auscultation. Normal effort. HEART: NL S1/S2, regular, no murmur ABDOMEN: BS+, soft, nontender, no mass, no bruits EXTREMITIES: 1+ ankle edema. NEUROLOGIC: CN intact and symmetric to inspection. MUSCULOSKELETAL: Tone and strength symmetric. PSYCH: Alert. Oriented to person, place, and time. Objective Data Vital Signs Vital Signs: Vital Signs - 24 hr 04/04/24 16:00 04/04/24 16:00 04/04/24 19:13 Temperature 97.6 F 97.9 F Pulse Rate 79 86 85 Respiratory Rate 18 16 Blood Pressure 128/62 121/64 Pulse Oximetry 95 97 Oxygen Delivery Oxygen Flow Rate Fraction of Inspired Oxygen 04/04/24 20:00 04/04/24 20:00 04/05/24 02:02 Temperature Pulse Rate 80 84 95 Respiratory Rate 16 15 Blood Pressure Pulse Oximetry 97 95 Oxygen Delivery BiPAP BiPAP Oxygen Flow Rate Fraction of Inspired Oxygen 04/05/24 04:00 04/05/24 00:00 04/05/24 04:00 Temperature 97.8 F Pulse Rate 85 84 89 Respiratory Rate 16 Blood Pressure 108/58 L Pulse Oximetry 96 Oxygen Delivery Oxygen Flow Rate Fraction of Inspired Oxygen 04/05/24 08:14 04/05/24 09:05 04/05/24 08:49 Temperature Pulse Rate 88 Respiratory Rate Blood Pressure Pulse Oximetry 95 91 Oxygen Delivery Nasal Cannula Nasal Cannula Oxygen Flow Rate 2 2 Fraction of Inspired Oxygen 04/05/24 09:40 04/05/24 11:50 04/05/24 12:00 Temperature 97 F L Pulse Rate 84 84 Respiratory Rate 18 18 Blood Pressure 118/77 117/73 Pulse Oximetry 91 95 Oxygen Delivery Nasal Cannula Nasal Cannula Nasal Cannula Oxygen Flow Rate 2 2 2 Fraction of Inspired Oxygen 04/05/24 12:15 04/05/24 12:30 04/05/24 12:45 Temperature Pulse Rate 84 81 82 Respirato
[2024-04-05] MEDS: FUROSEMIDE INJ 40 MG/4 ML VIAL IV PUSH (18:56)
[2024-04-05] MEDS: INSULIN ASPART (*BKC) 100 UNITS/ML SUB-Q ×2 (19:03→21:31)
[2024-04-05] MEDS: INSULIN HUMAN NPH (*BKC) 100 UNITS/ML SUB-Q (19:03)
[2024-04-05] MEDS: IMIPRAMINE HCL 25 MG TABLET PO (20:23)
[2024-04-05 21:01] LABS: Glucose Point of Care 266 mg/dl (65-105)
[2024-04-06] VITALS (20 sets, daily range): BP systolic 101–147; BP diastolic 55–86; PULSE 79–100; RESP 18–22; TEMP 35.9–37.5; O2SAT 93–99
--- NOTE | 2024-04-06 05:11 | ECG_ITS ---
Test Date: 2024-04-06 13:06:01 Measurements Intervals [facility] Rate: 82 P: 14 [place]: 163 QRS: 109 QRSD: 158 T: 79 QT: 402 QTc: 472 Interpretive Statements SINUS RHYTHM MARKED RIGHT AXIS DEVIATION [QRS AXIS > 100] RIGHT BUNDLE BRANCH BLOCK [120+ ms QRS DURATION, UPRIGHT V1, 40+ ms S IN I/aVL/V4/V5/V6] ANTEROSEPTAL MYOCARDIAL INFARCTION [40+ ms Q WAVE IN V1-V4], OLD Compared to ECG 04/05/2024 12:01:27 No significant changes Electronically Signed On 04-07-2024 14:25:19 CDT by Jimy Elise M.D.
[2024-04-06 05:21] LABS: Basophils Percent Auto 0.2 % (0.2-1.2); Eosinophils Absolute Auto 0.3 K/mm3 (0-0.3); Eosinophils Percent Auto 3.6 % (0-4.4); Hematocrit 38.5 % (42.0-52.0); Hemoglobin 11.6 g/dL (14.0-18.0); Immature Granulocyte Absolute 0.03 K/mm3 (0.00-0.031); Immature Granulocyte Percent A 0.4 % (0-0.5); Lymphocytes Absolute Auto 1.23 K/mm3 (0.9-3.2); Lymphocytes Percent Auto 14.7 % (18.3-44.2); Mean Corpuscular HGB Conc 30.1 g/dl (32-36); Mean Corpuscular Hemoglobin 27.6 pg (26-34); Mean Corpuscular Volume 91.4 fl (80-100); Mean Platelet Volume 9.9 fl (7.4-10.4); Monocytes Absolute Auto 0.6 K/mm3 (0.1-0.6); Monocytes Percent Auto 7.5 % (2.6-8.5); Neutrophils Absolute Auto 6.2 K/mm3 (1.3-6.7); Neutrophils Percent Auto 73.6 % (45.5-73.1); Platelet Count Result 139 k/mm3 (150-375); Red Blood Count 4.21 M/mm3 (4.6-6.20); Red Cell Distribution Width 14.7 % (11.5-14.5); White Blood Count 8.4 K/mm3 (4.5-10.0)
[2024-04-06 05:32] LABS: Alanine Aminotransferase 41 U/L (6-50); Albumin Level 3.2 g/dL (3.5-5.1); Alkaline Phosphatase 95 U/L (38-126); Anion Gap 4 mmol/L (4-12); Aspartate Amino Transferase 43 U/L (17-59); Bilirubin,Total 0.4 mg/dL (0.2-1.3); Blood Urea Nitrogen 32 mg/dL (9-20); Calcium 8.4 mg/dL (8.4-10.2); Carbon Dioxide 33 mmol/L (22-30); Chloride 104 mmol/L (98-107); Estimated CRCL calculation 31 ml/min; Estimated Glomerular Filt Rate 41; Glucose 161 mg/dL (65-110); Magnesium 2.2 mg/dL (1.6-2.3); Potassium 4.2 mmol/L (3.4-5.0); Sodium 141 mmol/L (137-145)
[2024-04-06 05:48] LABS: Iron 28 ug/dL (49-181)
[2024-04-06 05:57] LABS: Percent Iron Saturation 10 % (20-50)
[2024-04-06 07:51] LABS: Glucose Point of Care 162 mg/dl (65-105)
[2024-04-06] MEDS: CLOPIDOGREL BISULFATE 75 MG TABLET PO (08:34)
[2024-04-06] MEDS: SACUBITRIL/VALSARTAN 24-26 MG TABLET 1 TAB PO ×2 (08:34→20:14)
[2024-04-06] MEDS: PRAMIPEXOLE 0.5 MG TABLET PO (08:34)
[2024-04-06] MEDS: TAMSULOSIN HCL 0.4 MG CAPSULE PO (08:34)
[2024-04-06] MEDS: ASPIRIN 81 MG CHEWABLE TABLET PO (08:34)
[2024-04-06] MEDS: ROSUVASTATIN 20 MG TABLET PO (08:34)
[2024-04-06] MEDS: carvediloL 12.5 MG TABLET PO ×2 (08:34→20:14)
[2024-04-06] MEDS: ENOXAPARIN 40 MG/0.4 ML SYRINGE SUB-Q (08:34)
[2024-04-06] MEDS: ATORVASTATIN 40 MG TABLET 80 MG PO (08:34)
[2024-04-06] MEDS: FUROSEMIDE INJ 40 MG/4 ML VIAL IV PUSH ×2 (08:35→16:19)
[2024-04-06] MEDS: GABAPENTIN 300 MG CAPSULE 600 MG PO ×2 (08:35→20:15)
[2024-04-06] MEDS: INSULIN HUMAN NPH (*BKC) 100 UNITS/ML 15 UNITS SUB-Q (08:36)
[2024-04-06] MEDS: INSULIN ASPART (*BKC) 100 UNITS/ML SUB-Q ×5 (08:36→20:18)
--- NOTE | 2024-04-06 08:58 | PM.PNPUL ---
Progress Note: A&P Assessment and Plan (1) Acute hypoxic respiratory failure: Code(s): J96.01 - Acute respiratory failure with hypoxia Status: Acute Assessment and Plan: This 83-year-old man with a history of obesity presented with a 2-week history of shortness of breath and hypoxemic hypercapnic respiratory failure. He has been diagnosed with systolic congestive heart failure and is currently receiving treatment. Additionally, he is being treated for a possible lower respiratory tract infection, although the chest X-ray does not clearly indicate infiltrates. On physical examination, he has bilateral crackles at the lung bases, consistent with congestive heart failure. The patient has undergone a chest CT, which showed small pleural effusions bilaterally with associated atelectasis related to congestive heart failure. He also underwent cardiac catheterization, which showed elevated left ventricular end-diastolic pressure, and had a stent placement. Over the last 24 hours, his respiratory status has remained essentially unchanged. He continues to have crackles at the bases posteriorly and remains on supplemental oxygen. He is fully alert and cooperative. I had a lengthy discussion with the patient and his regarding further workup for possible sleep-disordered breathing. The patient indicated that he is not interested in having a sleep study as he cannot tolerate CPAP. Plan: Repeat chest X-ray prior to discharge home. The patient will need an evaluation for home oxygen prior to discharge. He will continue with his supplemental oxygen at night. Consider incentive spirometry. I gave my business card to the patient and advised him to call the clinic to make an appointment should he decide to have a sleep study. At this point, I will sign off. Please call with any questions. (2) T2DM (type 2 diabetes mellitus): Code(s): E11.9 - Type 2 diabetes mellitus without complications Status: Acute (3) Heart failure with reduced ejection fraction: Code(s): I50.20 - Unspecified systolic (congestive) heart failure Status: Acute (4) CKD (chronic kidney disease) stage 3, GFR 30-59 ml/min: Code(s): N18.30 - Chronic kidney disease, stage 3 unspecified Status: Acute Subjective Date/time seen: 04/06/24 08:58 Interval history: The patient has no new respiratory symptoms. The patient's was also present in the room today and confirmed that the patient underwent a sleep study several years ago at a hospital in [place], [place]. He was diagnosed with mild sleep apnea but has not been using CPAP support. The patient has been prescribed supplemental oxygen at 2 liters/minute for nighttime use by his primary care provider approximately 18 months ago. However, he has not been compliant with his home oxygen therapy, although he did resume its use for a short period before coming to the hospital. Exam Narrative: GENERAL APPEARANCE: Well developed, well nourished, alert and cooperative, and appears to be in in mild respiratory distress while on supplemental oxygen sitting in chair SKIN: Inspection of the skin reveals no rashes, ulcerations or petechiae. HEENT: Sclerae anicteric and conjunctivae pink and moist. Extraocular movements were intact and pupils were equal, round, and reactive to light. The oral mucosa, hard and soft palate, tongue and posterior pharynx were normal. NECK: Supple. There was no thyroid enlargement, and no tenderness, or masses were felt. LUNGS: Crackles at bases posteriorly, no wheeze CARDIAC: There was a regular rate and rhythm without any murmurs. ABDOMEN: Soft and nontender with normal bowel sounds. There was no organomegaly. LYMPH NODES: No lymphadenopathy was appreciated in the neck. EXTREMITIES: No cyanosis, clubbing 2+ edema NEUROLOGIC: Alert and oriented x 3. Normal affect. Objective Data Vital Signs Vital Signs: Vital Signs - 24 hr 04/05/24 09:05 04/05/24 0
--- NOTE | 2024-04-06 11:06 | PM.PNCARD ---
Progress Note: A&P Assessment and Plan (1) Heart failure with reduced ejection fraction: Code(s): I50.20 - Unspecified systolic (congestive) heart failure Status: Acute Assessment and Plan: New diagnosis of HFrEF, EF 15-20% Improving with IV furosemide Continue GDMT with Entresto, coreg. Up titrate coreg as able Can add jardiance as outpatient if affordable Discussed LifeVest with patient and . Would like some time to think about this. (2) T2DM (type 2 diabetes mellitus): Code(s): E11.9 - Type 2 diabetes mellitus without complications Status: Acute Assessment and Plan: Management per hospitalist (3) CKD (chronic kidney disease) stage 3, GFR 30-59 ml/min: Code(s): N18.30 - Chronic kidney disease, stage 3 unspecified Status: Acute Assessment and Plan: Renal function stable post coronary angiography. (4) CAD (coronary artery disease): Code(s): I25.10 - Atherosclerotic heart disease of [place] coronary artery without angina pectoris Status: Acute Assessment and Plan: [facility] yesterday showed 99% proximal LAD disease and he is now s/p PCI with MYRIAM x 1 Continue ASA, plavix Both atorvastatin and rosuvastatin are on his med list, will d/c atorvastatin and continue with high intensity rosuvastatin Risk factor modification for CAD Cardiac rehab referral (5) Elevated troponin: Code(s): R79.89 - Other specified abnormal findings of blood chemistry Status: Acute Assessment and Plan: Secondary to above and decompensated heart failure. Subjective Date/time seen: 04/06/24 11:06 Interval history: Cardiology follow up for CAD, cardiomyopathy, NSTEMI Date of service 04/06/2024: Feeling well today. Denies chest pain, palpitations, shortness of breath. Review of Systems Review of Systems: All systems reviewed & are unremarkable except as noted in HPI and below Exam Const: General: comfortable and no acute distress HENMT: Face/Nose/Sinus: Normal nares present and no epistaxis Mouth: Yes moist mucous membranes Eyes: General: appearance normal, both eyes and all related structures Sclera: sclerae normal Pupils: Equal, round and reactive pupils present Neck: Neck: supple and no JVD Carotids: no bruits Resp: Effort & Inspection: normal respiratory effort Auscultation: not clear to auscultation bilaterally, crackles bilateral at the base and lung sounds not diminished Cardio: Rate: regular rate Rhythm: regular rhythm Heart sounds: no gallops, no murmurs and no rubs GI: Auscultation: normal bowel sounds Skin: General skin exam: normal color, rashes and/or lesions noted and no erythema Other: Warm Neuro: Cranial nerves: Yes Equal, round and reactive pupils present Speech: normal speech Extrem: General: pedal edema (Mild pretibial and pedal edema, R worse than L) Psych: Mental Status: mental status grossly normal Affect: normal affect Objective Data Vital Signs Vital Signs: Vital Signs - 24 hr 04/05/24 11:50 04/05/24 12:00 04/05/24 12:15 Temperature 36.1 C L Pulse Rate 84 84 84 Respiratory Rate 18 18 16 Blood Pressure 118/77 117/73 124/74 Pulse Oximetry 91 95 95 Oxygen Delivery Nasal Cannula Nasal Cannula Nasal Cannula Oxygen Flow Rate 2 2 2 04/05/24 12:30 04/05/24 12:45 04/05/24 13:00 Temperature Pulse Rate 81 82 83 Respiratory Rate 16 18 16 Blood Pressure 121/71 122/72 114/69 Pulse Oximetry 94 98 100 Oxygen Delivery Nasal Cannula Nasal Cannula Nasal Cannula Oxygen Flow Rate 2 2 2 04/05/24 13:15 04/05/24 13:30 04/05/24 14:30 Temperature Pulse Rate 85 82 83 Respiratory Rate 18 16 17 Blood Pressure 115/71 116/73 119/83 Pulse Oximetry 99 98 97 Oxygen Delivery Nasal Cannula Nasal Cannula Nasal Cannula Oxygen Flow Rate 2 2 2 04/05/24 14:35 04/05/24 14:40 04/05/24 14:45 Temperature Pulse Rate 84 83 83 Respiratory Rate 17 19 19 Blood Pressure 136/72 118/77 115/78 Pul
[2024-04-06 12:29] LABS: Glucose Point of Care 263 mg/dl (65-105)
[2024-04-06 15:27] LABS: Glucose Point of Care 171 mg/dl (65-105)
--- NOTE | 2024-04-06 16:57 | PM.IMPN ---
Progress Note: A&P Assessment and Plan (1) Pneumonia: Code(s): J18.9 - Pneumonia, unspecified organism Status: Acute Assessment and Plan: Continue ceftriaxone and azithromycin CT chest reviewed. No evidence of pneumonia and hence antibiotics stopped. (2) Heart failure with reduced ejection fraction: Code(s): I50.20 - Unspecified systolic (congestive) heart failure Status: Acute Assessment and Plan: CM vs multivessel CAD vs both Continue Entresto and Coreg 04/04 added furosemide Add cooper and Jardiance later ischemic evaluation with findings of 99% proximal LAD disease status post PCI with MYRIAM x1. On aspirin Plavix Will need LifeVest at discharge (3) Elevated troponin: Code(s): R79.89 - Other specified abnormal findings of blood chemistry Status: Acute Assessment and Plan: NSTEMI ischemic evaluation with findings of 99% proximal LAD disease status post PCI with MYRIAM x1. On aspirin Plavix (4) Acute hypoxic respiratory failure: Code(s): J96.01 - Acute respiratory failure with hypoxia Status: Acute Assessment and Plan: Due to pneumonia Wean oxygen as possible Pulmonary consulted for associated hypercapnic respiratory failure due has underlying ENRIQUE CPAP/P Pap refused by the patient Home oxygen evaluation at discharge and follow-up as an outpatient basis. (5) T2DM (type 2 diabetes mellitus): Code(s): E11.9 - Type 2 diabetes mellitus without complications Status: Acute Assessment and Plan: 04/03 reduced NPH to about 2/3 of home dose due to improved diet and compliance in hospital and dramatic drop in glucose 04/04 FBS 158 (6) CKD (chronic kidney disease) stage 3, GFR 30-59 ml/min: Code(s): N18.30 - Chronic kidney disease, stage 3 unspecified Status: Acute Assessment and Plan: Creatinine 04/02 1.7, 04/03 1.7, 04/04 1.6 (7) Anemia: Code(s): D64.9 - Anemia, unspecified Status: Acute Assessment and Plan: Likely due to CKD 3 Iron, B12, stool for occult blood pending. Subjective Date/time seen: 04/06/24 16:57 Interval history: No overnight events. Breathing is about the same. No nausea vomiting. Remains on 2 L oxygen. Need home oxygen evaluation at discharge. Review of Systems Review of Systems: All systems reviewed & are unremarkable except as noted in HPI and below Exam Narrative: HEENT: PERRL, sclerae nonicteric, pharyngeal mucosa pink and intact NECK: No JVD CHEST: Clear to auscultation. Normal effort. HEART: NL S1/S2, regular, no murmur ABDOMEN: BS+, soft, nontender, no mass, no bruits EXTREMITIES: 1+ ankle edema. NEUROLOGIC: CN intact and symmetric to inspection. MUSCULOSKELETAL: Tone and strength symmetric. PSYCH: Alert. Oriented to person, place, and time. Objective Data Vital Signs Vital Signs: Vital Signs - 24 hr 04/05/24 17:08 04/05/24 18:13 04/05/24 18:00 Temperature 97.6 F 97.4 F L Pulse Rate 80 80 80 Respiratory Rate 20 20 Blood Pressure 116/65 104/65 Pulse Oximetry 99 100 Oxygen Delivery Oxygen Flow Rate 04/05/24 19:47 04/05/24 20:22 04/05/24 20:00 Temperature 97.6 F Pulse Rate 83 85 81 Respiratory Rate 18 Blood Pressure 112/70 Pulse Oximetry 98 Oxygen Delivery Oxygen Flow Rate 04/05/24 22:00 04/05/24 23:53 04/06/24 00:00 Temperature 97.8 F Pulse Rate 81 80 79 Respiratory Rate 18 Blood Pressure 135/84 Pulse Oximetry 99 Oxygen Delivery Oxygen Flow Rate 04/06/24 04:00 04/06/24 02:00 04/06/24 04:00 Temperature 98.9 F Pulse Rate 82 79 85 Respiratory Rate 18 Blood Pressure 111/55 L Pulse Oximetry 96 Oxygen Delivery Oxygen Flow Rate 04/06/24 06:00 04/06/24 08:00 04/06/24 08:34 Temperature 97.7 F Pulse Rate 82 89 99 Respiratory Rate 20 Blood Pressure 133/81 Pulse Oximetry 98 Oxygen Delivery Oxygen Flow Rate 04/06/24 08:00 04/06/24 08:00
[2024-04-06] MEDS: INSULIN HUMAN NPH (*BKC) 100 UNITS/ML SUB-Q (18:44)
[2024-04-06] MEDS: IMIPRAMINE HCL 25 MG TABLET PO (20:15)
[2024-04-06 21:05] LABS: Glucose Point of Care 205 mg/dl (65-105)
[2024-04-07] VITALS (22 sets, daily range): BP systolic 95–133; BP diastolic 60–77; PULSE 80–101; RESP 21–26; TEMP 36.1–37.6; O2SAT 90–100
[2024-04-07 04:44] LABS: Basophils Percent Auto 0.1 % (0.2-1.2); Eosinophils Absolute Auto 0.3 K/mm3 (0-0.3); Eosinophils Percent Auto 3.5 % (0-4.4); Hematocrit 39.7 % (42.0-52.0); Hemoglobin 11.7 g/dL (14.0-18.0); Immature Granulocyte Absolute 0.03 K/mm3 (0.00-0.031); Immature Granulocyte Percent A 0.4 % (0-0.5); Lymphocytes Absolute Auto 1.64 K/mm3 (0.9-3.2); Lymphocytes Percent Auto 19.8 % (18.3-44.2); Mean Corpuscular HGB Conc 29.5 g/dl (32-36); Mean Corpuscular Hemoglobin 26.9 pg (26-34); Mean Corpuscular Volume 91.3 fl (80-100); Mean Platelet Volume 9.8 fl (7.4-10.4); Monocytes Absolute Auto 0.7 K/mm3 (0.1-0.6); Monocytes Percent Auto 8.2 % (2.6-8.5); Neutrophils Absolute Auto 5.7 K/mm3 (1.3-6.7); Platelet Count Result 130 k/mm3 (150-375); Red Blood Count 4.35 M/mm3 (4.6-6.20); Red Cell Distribution Width 14.7 % (11.5-14.5); White Blood Count 8.3 K/mm3 (4.5-10.0)
[2024-04-07 04:56] LABS: Alanine Aminotransferase 39 U/L (6-50); Albumin Level 3.5 g/dL (3.5-5.1); Alkaline Phosphatase 97 U/L (38-126); Anion Gap 5 mmol/L (4-12); Aspartate Amino Transferase 39 U/L (17-59); Bilirubin,Total 0.4 mg/dL (0.2-1.3); Blood Urea Nitrogen 33 mg/dL (9-20); Calcium 8.4 mg/dL (8.4-10.2); Carbon Dioxide 34 mmol/L (22-30); Chloride 100 mmol/L (98-107); Estimated CRCL calculation 29 ml/min; Estimated Glomerular Filt Rate 38; Glucose 181 mg/dL (65-110); Magnesium 2.2 mg/dL (1.6-2.3); Potassium 3.5 mmol/L (3.4-5.0); Sodium 139 mmol/L (137-145)
[2024-04-07 08:48] LABS: Glucose Point of Care 362 mg/dl (65-105)
[2024-04-07] MEDS: CLOPIDOGREL BISULFATE 75 MG TABLET PO (08:52)
[2024-04-07] MEDS: PRAMIPEXOLE 0.5 MG TABLET PO (08:52)
[2024-04-07] MEDS: SACUBITRIL/VALSARTAN 24-26 MG TABLET 1 TAB PO ×2 (08:52→20:12)
[2024-04-07] MEDS: ASPIRIN 81 MG CHEWABLE TABLET PO (08:52)
[2024-04-07] MEDS: GABAPENTIN 300 MG CAPSULE 600 MG PO ×2 (08:52→20:12)
[2024-04-07] MEDS: carvediloL 12.5 MG TABLET PO ×2 (08:53→20:11)
[2024-04-07] MEDS: ROSUVASTATIN 20 MG TABLET PO (08:53)
[2024-04-07] MEDS: INSULIN ASPART (*BKC) 100 UNITS/ML SUB-Q ×5 (08:53→16:40)
[2024-04-07] MEDS: ENOXAPARIN 40 MG/0.4 ML SYRINGE SUB-Q (08:53)
[2024-04-07] MEDS: TAMSULOSIN HCL 0.4 MG CAPSULE PO (08:53)
[2024-04-07] MEDS: FUROSEMIDE INJ 40 MG/4 ML VIAL IV PUSH ×2 (08:53→16:39)
[2024-04-07] MEDS: INSULIN HUMAN NPH (*BKC) 100 UNITS/ML 15 UNITS SUB-Q (08:54)
--- NOTE | 2024-04-07 10:31 | PCNWS ---
Weekly nutritional screen. Patient is tolerating current diet with adequate intake. 100% on heart healthy diet. No weight loss reported. No nutritional needs at this time.
--- NOTE | 2024-04-07 11:49 | PM.IMPN ---
Progress Note: A&P Assessment and Plan (1) Pneumonia: Code(s): J18.9 - Pneumonia, unspecified organism Status: Acute Assessment and Plan: CXR showing bibasilar PNA R>L. WBC normal He was started on ceftriaxone and azithromycin CT chest 04/05 showing bilateral effusions with bilateral lower lobe airspace disease atelectasis vs PNA. He completed a course of azithromycin. Rocephin stopped after 5 days Follow (2) Heart failure with reduced ejection fraction: Code(s): I50.20 - Unspecified systolic (congestive) heart failure Status: Acute Assessment and Plan: CM vs multivessel CAD vs both Echo showing EF 15-20% with hypokinetic and akinetic segments, Grade I diastolic dysfunction and mild valvular disease Continue Entresto and Coreg 04/04 : furosemide IV added Spironolactone and Jardiance added Ischemic evaluation with findings of 99% proximal LAD disease status post PCI with MYRIAM x1. On aspirin Plavix Will need LifeVest at discharge I/o not accurate. Weight is higher then on admission(!). Continue IV Lasix (3) Elevated troponin: Code(s): R79.89 - Other specified abnormal findings of blood chemistry Status: Acute Assessment and Plan: Secondary to cardiac ischemia and CHF. CAD with [facility] 04/05 showing 99% proximal LAD disease status post PCI with MYRIAM x1. On aspirin, Plavix, Crestor, Coreg (4) Acute hypoxic respiratory failure: Code(s): J96.01 - Acute respiratory failure with hypoxia Status: Acute Assessment and Plan: Due to pneumonia and CHF Wean oxygen as possible Pulmonary consulted for associated hypercapnic respiratory failure due has underlying ENRIQUE patient tolerating CPAP at times Home oxygen evaluation at discharge and follow-up as an outpatient basis. (5) T2DM (type 2 diabetes mellitus): Code(s): E11.9 - Type 2 diabetes mellitus without complications Status: Acute Assessment and Plan: A1c 7.7. The patient's blood glucose was reviewed on 04/07 Glucose remains reasonably well controlled but up to 300's today. Continue AccuCheks covering with sliding scale. Hypoglycemia protocol available as needed. Continue to follow (6) CKD (chronic kidney disease) stage 3, GFR 30-59 ml/min: Code(s): N18.30 - Chronic kidney disease, stage 3 unspecified Status: Acute Assessment and Plan: Creatinine 1.4 on admission but was fluid overloaded. With diuresis, Cr stable around 1.6. Suspect this is chronic related to HTN, DM. Consider also related to poor renal perfusion from poor cardiac function Follow (7) Anemia: Code(s): D64.9 - Anemia, unspecified Status: Acute Assessment and Plan: Irons tudies consistent with iron deficiency. b12, folate okay. Could also be partly related to his CKD 3 Replace iron (8) CAD (coronary artery disease): Code(s): I25.10 - Atherosclerotic heart disease of [place] coronary artery without angina pectoris Status: Acute Assessment and Plan: As above Plan DVT prophylaxis - Lovenox Code status - full Subjective Date/time seen: 04/07/24 11:49 Interval history: 83yo male with DM with PN and CHF here for. shortnes of breath. Assuing care. Chart reviewed. Feels weak but is working with therapy. He is walking in the halls with walker and therapy. No CP or SOB. +ASKEW. Wore his CPAP about 5.5hrs last night. He expresses his dislike for the CPAP. No n/v. Eating okay. He wears 2.5L at home at rest and with activity but unclear if this is accurate. Exam Narrative: AF 98.4 128/62 86 22 96% 2L Gen - NARD Chest - decreased breath sounds bibasilar with inspiratory crackles mid and lower lung spence. nml RR CV - RRR S1/S2. Tele showing no significant dysrhythmias Abd - Soft, obese, NT, +BS Ext - 1+ pedal edema Neuro - Alert and oriented. Nonfocal exam. Psych - Nml mood and affect Skin - Warm and dry Object
--- NOTE | 2024-04-07 12:18 | PM.PNCARD ---
Progress Note: A&P Assessment and Plan (1) Heart failure with reduced ejection fraction: Code(s): I50.20 - Unspecified systolic (congestive) heart failure Status: Acute Assessment and Plan: New diagnosis of HFrEF, EF 15-20% Improving with IV Lasix. Still with some lower extremity edema, therefore, will continue IV Lasix for today. Continue GDMT with Entresto, Coreg. Will add Spironolactone and Jardiance today. Life Vest ordered. (2) T2DM (type 2 diabetes mellitus): Code(s): E11.9 - Type 2 diabetes mellitus without complications Status: Acute Assessment and Plan: Management per hospitalist (3) CKD (chronic kidney disease) stage 3, GFR 30-59 ml/min: Code(s): N18.30 - Chronic kidney disease, stage 3 unspecified Status: Acute Assessment and Plan: Renal function stable post coronary angiography. (4) CAD (coronary artery disease): Code(s): I25.10 - Atherosclerotic heart disease of [place] coronary artery without angina pectoris Status: Acute Assessment and Plan: [facility] showed 99% proximal LAD disease and he is now s/p PCI with MYRIAM x 1 Continue ASA, Plavix. Will need to be on DAPT for at least 1 year. Continue Rosuvastatin. Risk factor modification for CAD Cardiac rehab referral (5) Elevated troponin: Code(s): R79.89 - Other specified abnormal findings of blood chemistry Status: Acute Assessment and Plan: Secondary to above and decompensated heart failure. Plan Recommendations and plan discussed with Hospitalist. Subjective Date/time seen: 04/07/24 12:18 Interval history: Cardiology follow up for CAD, cardiomyopathy, NSTEMI Date of service 04/07: Feeling well today. Reports urinating quite a bit. Lower extremity edema is improving. Tele without arrhthymias. Review of Systems Review of Systems: All systems reviewed & are unremarkable except as noted in HPI and below (HPI) Exam Const: General: comfortable and no acute distress HENMT: Mouth: Yes moist mucous membranes Eyes: General: appearance normal, both eyes and all related structures Sclera: sclerae normal Resp: Effort & Inspection: normal respiratory effort Other: On supplemental oxygen Cardio: Rate: regular rate Rhythm: regular rhythm Other: Mild lower extremity edema. Skin: General skin exam: normal color Neuro: Speech: normal speech Psych: Mental Status: mental status grossly normal Affect: normal affect Objective Data Vital Signs Vital Signs: Vital Signs - 24 hr 04/06/24 14:33 04/06/24 14:00 04/06/24 14:25 Temperature Pulse Rate 83 84 Respiratory Rate 22 H Blood Pressure Pulse Oximetry 95 93 Oxygen Delivery BiPAP BiPAP Oxygen Flow Rate 04/06/24 15:44 04/06/24 16:00 04/06/24 16:00 Temperature 36.3 C L Pulse Rate 81 81 81 Respiratory Rate 22 H 22 H Blood Pressure 101/57 L Pulse Oximetry 95 96 Oxygen Delivery BiPAP Oxygen Flow Rate 04/06/24 16:00 04/06/24 18:00 04/06/24 20:14 Temperature Pulse Rate 94 96 Respiratory Rate Blood Pressure Pulse Oximetry 97 Oxygen Delivery Nasal Cannula Oxygen Flow Rate 2 04/06/24 20:17 04/06/24 20:00 04/06/24 20:00 Temperature 37.5 C Pulse Rate 96 99 Respiratory Rate 22 H Blood Pressure 147/86 H Pulse Oximetry 97 99 Oxygen Delivery Nasal Cannula Oxygen Flow Rate 2 04/07/24 00:27 04/06/24 22:00 04/07/24 00:00 Temperature 36.4 C Pulse Rate 85 97 Respiratory Rate 24 H Blood Pressure 103/60 Pulse Oximetry 97 96 Oxygen Delivery BiPAP Oxygen Flow Rate 04/07/24 00:00 04/06/24 23:00 04/07/24 01:49 Temperature Pulse Rate 83 89 80 Respiratory Rate 20 21 H Blood Pressure Pulse Oximetry 94 95 Oxygen Delivery BiPAP BiPAP Oxygen Flow Rate 04/07/24 02:00 04/07/24 04:00 04/07/24 04:00 Temperature Pulse Rate 82 85 Respiratory Rate Blood Pressure Pulse Oximetry
[2024-04-07 13:43] LABS: Glucose Point of Care 301 mg/dl (65-105)
[2024-04-07] MEDS: SPIRONOLACTONE 12.5 MG TABLET PO (14:17)
[2024-04-07] MEDS: EMPAGLIFLOZIN 10 MG TABLET PO (14:18)
[2024-04-07 16:22] LABS: Glucose Point of Care 138 mg/dl (65-105)
[2024-04-07] MEDS: INSULIN HUMAN NPH (*BKC) 100 UNITS/ML SUB-Q (18:21)
[2024-04-07 20:09] LABS: Glucose Point of Care 186 mg/dl (65-105)
[2024-04-07] MEDS: IMIPRAMINE HCL 25 MG TABLET PO (20:12)
[2024-04-08] VITALS (21 sets, daily range): BP systolic 104–130; BP diastolic 52–75; PULSE 77–88; RESP 16–25; TEMP 36.2–38.1; O2SAT 93–99
--- NOTE | 2024-04-08 01:55 | P.PNCROSS_ITS ---
Event Note Event Note Event Note: 04/08/2024 around 02:00 Nursing staff called me as the patient was hallucinati ng and reaching for things that were not present. He was not verbally responsive to staff but was talking to things that were not in the room. Patient was also more somnolent. Patient had been placed on BiPAP on the the patient has reported room having intermittent episodes of somnolence. Given his acute change in mentation I did order stat ABG. ABG demonstrated acute on chronic hypercapnic respiratory failure. Patient's pH of 7.23 pCO2 was 81 and due to mechanical air PO2 was not measured on the ABG machine. I contacted respiratory therapy who stated that the patient had been pulling low tidal volumes between 150 and 250 earlier in the shift. I Went to the patient's bedside and made adjustments at the patient's bedside to try to optimize tidal volume. Patient is about 5 ft 8 and 100 kg. I daily patient would pull between tidal volumes between 400 and 500. I made adjustments from pressures of 14/8 up to pressures of 20 over a with improved tidal volumes between 350 to 450 but the patient was still occasionally have apneic episodes intermittently. I suspect some component of central sleep apnea complicating obstructive sleep apnea. I did try did transition the patient AVAPS without success. Patient was only pulling tidal volumes of 150-250 mL on AVAPS the patient was switched back to BiPAP of 20/8. The patient was having low oxygen saturations butt cleft was poor. Nursing staff had increased the patient's PO2 up the 45% in the interval between the 2 ABGs. Repeat ABG about 2 hours after initial ABG demonstrated slightly improved pH of 7.29 with pCO2 of 76 with PO2 of 115. I requested that respiratory decrease the patient's PO2 back down to 35 and increased inspiratory pressure to 24 and increased rate to 24. Will defer further BiPAP adjustments to pulmonology. Will repeat ABG at 07:00. The patient's seemed confused when I was discussing management and why I was was trying to make adjustments. I did call the patient's son that is listed in the chart to discuss clinical picture. He is concerned the patient is getting too much oxygen in general and thinks that the patient's CO2 retention is from a 2 L nasal cannula the patient has been on since admission. I encouraged him to discuss this with pulmonology. I am uncertain if the patient has any true underlying COPD there seems to be no mention of significant findings on imaging studies that would be consistent with emphysema. Patient was never smoker. COPD seemed to be less likely cause of CO2 retention. I suspect underlying obstructive sleep apnea and or may be some component of obesity hypoventilation. 65 minutes spent in critical care activities. Due to a high probability of clinically significant, life threatening deterioration, the patient required my highest level of preparedness to intervene emergently and I personally spent this critical care time directly and personally managing the patient. This critical care time included obtaining a history; examining the patient; pulse oximetry; ordering and review of studies; arranging urgent treatment with development of a management plan; evaluation of patient's response to treatment; frequent reassessment; and discussions with other providers. It was exclusive of separately billable procedures and treating other patients and teaching time. Please see Assessment and Plan section and the rest of the note for further information on patient assessment and treatment.
--- NOTE | 2024-04-08 01:57 | PC.NURSE ---
Pt's Bipap alarm went off and as this nurse approached pt, pt was was staring off into space and pointing to the clock. PT disoriented but was previously A&O x3. Pt unable to speak. Hand blue leather setter weak. Pupils sluggish and uneven. Pt unable to follow certain commands. Dr. Aparicio notified. New orders given for a STAT ABG and NPO diet status. Pt's at bedside.
[2024-04-08 02:15] LABS: Base Excess ABG 3.9 mEq/l (+/-2.0); Carboxyhemoglobin 1.3 % THb (0-2.0); Fractional Inspired Oxygen 35 %; HCO3 ABG 33.9 mEq/l (22.0-26.0); Methemoglobin ABG 0.3 %THb (0-1.5); Oxyhemoglobin 93.2 % THb (90.0-100.0); Reduced Hemoglobin 5.2 %THb (0-5.0)
[2024-04-08 02:20] LABS: pH ABG 7.239 (7.350-7.450)
[2024-04-08 02:21] LABS: Device NON-INVASIVE VENT; Modified Allen's Test Pass; Non-Invasive Expiratory Pressure 8 CMH2O; Non-Invasive Inspiratory Pressure 14 CMH2O; Non-Invasive Vent Rate 14 /MIN; Site Drawn RIGHT RADIAL
[2024-04-08 04:37] LABS: Alveolar/Arterial O2 Gradient 118.5 mmHg; Base Excess ABG 7.1 mEq/l (+/-2.0); Carboxyhemoglobin 0.9 % THb (0-2.0); Fractional Inspired Oxygen 45 %; HCO3 ABG 36.4 mEq/l (22.0-26.0); Methemoglobin ABG 0.1 %THb (0-1.5); Oxygen Content ABG 18.5 %vol (16.0-22.0); Oxygen Saturation ABG 97.6 % (95.0-100.0); Oxyhemoglobin 97.3 % THb (90.0-100.0); PO2 ABG 115.6 mmHg (80.0-100.0); PO2 FiO2 Ratio Arterial Blood 2.57 %; Reduced Hemoglobin 1.7 %THb (0-5.0); Total Hemoglobin 13.4 g/dL (12.0-18.0)
[2024-04-08 04:38] LABS: Device NON-INVASIVE VENT; Modified Allen's Test Pass; PCO2 ABG 76.3 mmHg (35.0-45.0); Site Drawn RIGHT RADIAL; pH ABG 7.296 (7.350-7.450)
[2024-04-08 04:40] LABS: Non-Invasive Expiratory Pressure 8 CMH2O; Non-Invasive Inspiratory Pressure 20 CMH2O; Non-Invasive Vent Rate 22 /MIN
[2024-04-08 05:13] LABS: Basophils Percent Auto 0.2 % (0.2-1.2); Eosinophils Absolute Auto 0.2 K/mm3 (0-0.3); Eosinophils Percent Auto 2.3 % (0-4.4); Hematocrit 46.4 % (42.0-52.0); Hemoglobin 13.4 g/dL (14.0-18.0); Immature Granulocyte Absolute 0.04 K/mm3 (0.00-0.031); Immature Granulocyte Percent A 0.4 % (0-0.5); Immature Platelet Fraction Pct 3.5 % (0.9-11.2); Lymphocytes Absolute Auto 2.15 K/mm3 (0.9-3.2); Lymphocytes Percent Auto 20.6 % (18.3-44.2); Mean Corpuscular HGB Conc 28.9 g/dl (32-36); Mean Corpuscular Hemoglobin 27.2 pg (26-34); Mean Corpuscular Volume 94.3 fl (80-100); Mean Platelet Volume 10.2 fl (7.4-10.4); Monocytes Percent Auto 9.5 % (2.6-8.5); Platelet Count Result 124 k/mm3 (150-375); Red Blood Count 4.92 M/mm3 (4.6-6.20); Red Cell Distribution Width 14.9 % (11.5-14.5); White Blood Count 10.4 K/mm3 (4.5-10.0)
[2024-04-08 05:24] LABS: Alanine Aminotransferase 51 U/L (6-50); Albumin Level 4.1 g/dL (3.5-5.1); Alkaline Phosphatase 121 U/L (38-126); Anion Gap 8 mmol/L (4-12); Aspartate Amino Transferase 54 U/L (17-59); Bilirubin,Total 0.6 mg/dL (0.2-1.3); Blood Urea Nitrogen 37 mg/dL (9-20); Calcium 8.2 mg/dL (8.4-10.2); Carbon Dioxide 32 mmol/L (22-30); Chloride 99 mmol/L (98-107); Estimated CRCL calculation 25 ml/min; Estimated Glomerular Filt Rate 32; Glucose 116 mg/dL (65-110); Magnesium 2.6 mg/dL (1.6-2.3); Phosphorus 4.3 mg/dL (2.5-4.5); Potassium 4.3 mmol/L (3.4-5.0); Sodium 139 mmol/L (137-145)
[2024-04-08 07:19] LABS: Alveolar/Arterial O2 Gradient 105.2 mmHg; Base Excess ABG 13.2 mEq/l (+/-2.0); Fractional Inspired Oxygen 35 %; HCO3 ABG 41.1 mEq/l (22.0-26.0); Oxygen Content ABG 15.5 %vol (16.0-22.0); Oxygen Saturation ABG 90.4 % (95.0-100.0); Oxyhemoglobin 92.4 % THb (90.0-100.0); PO2 FiO2 Ratio Arterial Blood 1.77 %; Total Hemoglobin 11.9 g/dL (12.0-18.0); pH ABG 7.382 (7.350-7.450)
[2024-04-08 07:22] LABS: PCO2 ABG 70.8 mmHg (35.0-45.0); Site Drawn RIGHT RADIAL
[2024-04-08 07:23] LABS: Device BIPAP
[2024-04-08 07:24] LABS: Expiratory Pressure 8 cmH2O; Inspiratory Pressure 22 cmH2O
[2024-04-08 07:32] LABS: Oxygen Content ABG 16.8 %vol (16.0-22.0)
[2024-04-08 07:41] LABS: Glucose Point of Care 120 mg/dl (65-105)
--- NOTE | 2024-04-08 07:43 | PC.NURSE ---
Dr. Garcia updated on patient condition. Pt arouses to name then falls back asleep.
--- NOTE | 2024-04-08 07:51 | PC.NURSE ---
Dr. Wallace updated of Dr. Garcia recommendation.
--- NOTE | 2024-04-08 08:55 | PM.IMPN ---
Progress Note: A&P Assessment and Plan (1) Confusion: Code(s): R41.0 - Disorientation, unspecified Status: Acute Assessment and Plan: Patient more confused overnight. He had an ABG showing worsening hypercarbia. BiPAP adjusted with improvement in his ABG and symptoms. Pulmonary was re-consulted and concerned that acute CVA is contributing to his change in his mental status. CT brain showing 2 small hyperdense foci left temporal area; consider hemorrhagic or metastatic. Antiplt and Lovenox held Brain MRI showing multiple small susceptibility artifact areas seen in left temporal lobe suggesting of hemorrhagic changes. Brain contusion possible. Also with 2 small foci of diffusion restriction in the right frontal and left occipital lobes which may represent small lacunar infarcts. Discussed with radiology by phone who felt these lesions are relatively acute process. Consider embolic given different location. No LV thrombus by Echo on 04/01. Given the concern for small hemorrhagic CVA and that this might be the cause of his clinical change overnight, will continue to hold anti-platelet therapy and consult neurosurgery. Discussed with cardiolgoy - plan to repeat limited Echo looking for LV thrombus 45 minutes spent on critical care time (2) Heart failure with reduced ejection fraction: Code(s): I50.20 - Unspecified systolic (congestive) heart failure Status: Acute Assessment and Plan: Patient presents with SOB. Concern for CHF. Echo showing EF 15-20% with hypokinetic and akinetic segments, Grade I diastolic dysfunction and mild valvular disease Coreg contiued. Entresto added. He was started on furosemide IV. Spironolactone and Jardiance added Ischemic evaluation with findings of 99% proximal LAD disease status post PCI with MYRIAM x1. Was on aspirin Plavix Will need LifeVest at discharge I/o not accurate. Weight not accurate. Cr higher today so held IV Lasix and Spironolactone. (3) Acute hypoxic respiratory failure: Code(s): J96.01 - Acute respiratory failure with hypoxia Status: Acute Assessment and Plan: Due to pneumonia and CHF. Probably has undiagnosed ENRIQUE as well. Pulmonary consulted for associated hypercapnic respiratory failure due has underlying ENRIQUE Patient tolerating BiPAP at times. More confused overnight and ABG showing worsening hypercapnia possibly related to CVA Wean Oxygen as tolerated. Keep SpO2<95. Appreciate Pulmonary input Home oxygen evaluation at discharge and follow-up as an outpatient basis. (4) Elevated troponin: Code(s): R79.89 - Other specified abnormal findings of blood chemistry Status: Acute Assessment and Plan: Secondary to cardiac ischemia and CHF. CAD with [facility] 04/05 showing 99% proximal LAD disease status post PCI with MYRIAM x1. Medical management as above (5) Pneumonia: Code(s): J18.9 - Pneumonia, unspecified organism Status: Acute Assessment and Plan: CXR showing bibasilar PNA R>L. WBC normal He was started on ceftriaxone and azithromycin CT chest 04/05 showing bilateral effusions with bilateral lower lobe airspace disease atelectasis vs PNA. He completed a course of azithromycin. Rocephin stopped after 5 days PNA resolved Follow (6) T2DM (type 2 diabetes mellitus): Code(s): E11.9 - Type 2 diabetes mellitus without complications Status: Acute Assessment and Plan: A1c 7.7. The patient's blood glucose was reviewed on 04/08 Glucose remains reasonably well controlled but up to 300's today. Continue AccuCheks covering with sliding scale. Hypoglycemia protocol available as needed. Continue to follow (7) CKD (chronic kidney disease) stage 3, GFR 30-59 ml/min: Code(s): N18.30 - Chronic kidney disease, stage 3 unspecified Status: Acute Assessment and Plan: Creatinine 1.4 on admission but was fluid overloaded. With diuresis, Cr was stable around 1.6 felt to be chroni
--- NOTE | 2024-04-08 10:06 | PM.PNPUL ---
Progress Note: A&P Assessment and Plan (1) Acute hypoxic respiratory failure: Code(s): J96.01 - Acute respiratory failure with hypoxia Status: Acute Assessment and Plan: This 83-year-old man with a history of obesity presented with a 2-week history of shortness of breath and hypoxemic hypercapnic respiratory failure. He has been diagnosed with systolic congestive heart failure and is currently receiving treatment. Additionally, he is being treated for a possible lower respiratory tract infection, although the chest X-ray does not clearly indicate infiltrates. A chest CT scan showed small pleural effusions bilaterally with associated atelectasis related to congestive heart failure. He also underwent cardiac catheterization, which revealed elevated left ventricular end-diastolic pressure, and he had a stent placement. The patient's clinical condition worsened last night. He was found to be unresponsive, and arterial blood gases indicated acute on chronic hypercapnic respiratory failure, necessitating the resumption of BiPAP support. The patient has improved with BiPAP support, and arterial blood gases done this morning showed hypercapnic respiratory failure at his baseline. A brain CT showed some abnormalities, raising the question of an acute cerebrovascular accident (CVA). A chest X-ray done this morning showed probable worsening pulmonary edema with perihilar infiltrates and a small pleural effusion on the left. On physical exam, the patient has more crackles than before. Plan: Worsening congestive heart failure could explain the acute on chronic hypercapnia and the acute mental status changes noted last night. The patient has not received any sedative that would explain his worsening hypercapnia. A CVA is another potential cause. Continue with BiPAP support at night and as needed during the day. Had a lengthy discussion with the patient's family regarding support with a home ventilator for his chronic hypercapnic respiratory failure. The patient has a history of obesity and known sleep-disordered breathing for which he has not been on any treatment. Clinical findings and diagnostic studies suggest obesity hypoventilation syndrome. The patient seems to be responding to BiPAP support. According to his family, he is now willing to start treatment with a home ventilator in the AVAPS mode. This mode of treatment, as opposed to additional BiPAP support, provides consistent ventilatory support adapted to the patient's needs, enhances CO2 elimination, improves symptoms and quality of life, and minimizes the rate of hospitalizations associated with obesity hypoventilation syndrome. (2) T2DM (type 2 diabetes mellitus): Code(s): E11.9 - Type 2 diabetes mellitus without complications Status: Acute (3) Heart failure with reduced ejection fraction: Code(s): I50.20 - Unspecified systolic (congestive) heart failure Status: Acute (4) CKD (chronic kidney disease) stage 3, GFR 30-59 ml/min: Code(s): N18.30 - Chronic kidney disease, stage 3 unspecified Status: Acute Subjective Date/time seen: 04/08/24 10:06 Interval history: Patient's respiratory status worsened over the last 24 hours. Specifically last night he was found to be confused on and responding to verbal commands. Arterial blood gases showed acute on chronic hypercapnic respiratory failure. The patient was placed on BiPAP support. Today his cognitive function is significantly improved and patient was placed back on supplemental oxygen. Currently patient is fully awake complaining of no new respiratory symptoms. Workup in progress with chest x-ray and head CT. Review of Systems Review of Systems: All systems reviewed & are unremarkable except as noted in HPI and below Exam Narrative: GENERAL APPEARANCE: Well developed, well nourished, alert and cooperative, and appears to be in in mild respiratory distress while on supplemental oxygen sit
[2024-04-08] MEDS: SACUBITRIL/VALSARTAN 24-26 MG TABLET 1 TAB PO ×2 (10:14→20:48)
[2024-04-08] MEDS: carvediloL 12.5 MG TABLET PO ×2 (10:14→20:47)
[2024-04-08] MEDS: FERROUS SULFATE 325 MG TABLET DR PO (10:15)
[2024-04-08] MEDS: GABAPENTIN 300 MG CAPSULE 600 MG PO ×2 (10:15→20:48)
[2024-04-08] MEDS: TAMSULOSIN HCL 0.4 MG CAPSULE PO (10:15)
[2024-04-08] MEDS: EMPAGLIFLOZIN 10 MG TABLET PO (10:15)
[2024-04-08] MEDS: PRAMIPEXOLE 0.5 MG TABLET PO (10:15)
[2024-04-08] MEDS: ROSUVASTATIN 20 MG TABLET PO (10:16)
[2024-04-08 10:17] LABS: NT Pro B Type Natriuretic Pept 23600 pg/mL (19.9-100)
--- NOTE | 2024-04-08 11:58 | PC.NURSE ---
pt NPO at this time for testing. Verbal orders to hold insulin until patient is able to eat.
[2024-04-08 12:07] LABS: Glucose Point of Care 92 mg/dl (65-105)
--- NOTE | 2024-04-08 15:58 | WPDNEUROSGPN ---
Subjective Date/time seen: 04/08/24 15:58 Interval history: Called by Dr. Berry to review findings of a Head CT and MRI brain performed early today. Patient with possible mental status changes overnight. Concomitant respiratory issues which have improved with patient on adjusted respiratory parameters and pateint has returned to his clinical and neurological baseline. However, Head CT shows small 2mm and 4mm areas of hyperintensity in the posterior superior left temporal lobe which could be consistent with small areas of hemorrhage. Patient has no known history of trauma. There are small areas of susceptibility in similar region on MRI. No suggestion of underlying mass. There are also multifocal areas that are small with diffusion restriction that could be consistent with small areas of multifocal ischemia. The patient does not have a known history of prior ischemic events. He has no history of trauma. He also has a known history of significant cardiac disease and recent cardiac stent placment for which he is on antiplatelet agents (ASA and Plavix). Given the finding of possible areas of hemorrhage these medications were held this morning. The patient was also on therapeutic lovenox which has been held. I have had an extended dicussion with Dr. Berry regarding this patient's radiographic finding. While there are very small areas of hyperintensity on the CT that could be small areas of hemorrhage and while ideally we would hold antiplatelet agents in the setting of possible hemorrhage, given the patient's recent cardiac stents, I would plan to repeat the HEad CT in the morning tomorrow (04/09) and if there is no significant progression of the small area of possible hemorrhage, I would tend to favor continuation of the antiplatelet agents, as the patient's risk of significant morbidity secondary to stent thrombosis is likely much higher than progression of the very small area of possible hemorrhage. Certainly continuation of antiplatelet agents is not without risk, but we must weigh the relative risk of progression of a small area of hemorrhage against the known high risk of stent thrombosis in this particular case. Given the finding of small regional diffusion restriction I would recommend consultation with neurology for further recommendations (Echo currently planned, carotid duplex, medication management). Dr. berry and I have discussed that if there is intracranial ischemic foci, that the antiplatelet agents are likely to be the most appropriate treatment as well. Please do not hesitate to call with any additional questions. Objective Data Vital Signs Vital Signs: Vital Signs - 24 hr 04/07/24 16:00 04/07/24 16:00 04/07/24 17:33 Temperature 37.6 C H Pulse Rate 93 95 Respiratory Rate 24 H 26 H Blood Pressure 133/77 Pulse Oximetry 100 92 95 Oxygen Delivery BiPAP BiPAP Oxygen Flow Rate Fraction of Inspired Oxygen 28 04/07/24 16:00 04/07/24 18:00 04/07/24 19:54 Temperature 36.9 C Pulse Rate 96 101 H 94 Respiratory Rate 26 H Blood Pressure 107/61 Pulse Oximetry 97 Oxygen Delivery Oxygen Flow Rate Fraction of Inspired Oxygen 04/07/24 20:11 04/07/24 20:18 04/07/24 20:00 Temperature Pulse Rate 98 95 94 Respiratory Rate 26 H Blood Pressure Pulse Oximetry 97 Oxygen Delivery BiPAP Oxygen Flow Rate Fraction of Inspired Oxygen 04/07/24 20:00 04/07/24 23:08 04/07/24 22:00 Temperature 36.1 C L Pulse Rate 80 81 Respiratory Rate 23 H Blood Pressure 95/62 L Pulse Oximetry 95 90 Oxygen Delivery Nasal Cannula Oxygen Flow Rate 2 Fraction of Inspired Oxygen 04/08/24 00:00 04/08/24 00:00 04/08/24 02:00 Temperature Pulse Rate 78 78 Respiratory Rate Blood Pressure Pulse Oximetry 93 Oxygen Delivery BiPAP Oxygen Flow Rate Fraction of Inspired Oxygen 35 04/08/24 02:25 04/08/24 04:41 04/08/24 04:00 Temperature Pulse Rate 77 81
--- NOTE | 2024-04-08 16:00 | PM.PNCARD ---
Progress Note: A&P Assessment and Plan (1) Confusion: Code(s): R41.0 - Disorientation, unspecified Status: Acute Assessment and Plan: CT head shows 2 small hyperdense foci in the left temporal area, concerning for hemorrhagic or metastatic lesions. Brain MRI shows multiple small susceptibility artifact areas seen in the left temporal lobe suggestive of hemorrhagic changes, along with possible small lacunar infarcts. Neurosurgery has been consulted. His DAPT has been placed on hold for this. Given patient just had PCI done to his proximal LAD on 04/05, recommend to resume ASA and Plavix as soon as possible to avoid acute stent thrombosis, which can result in repeat UT, even . Will obtain limited echo to evaluate for LV thrombus. (2) Heart failure with reduced ejection fraction: Code(s): I50.20 - Unspecified systolic (congestive) heart failure Status: Acute Assessment and Plan: New diagnosis of HFrEF, EF 15-20% Lasix and Spironolactone on hold given rise in SCr. Continue GDMT with Entresto, Coreg, Jardiance. Life Vest ordered. (3) T2DM (type 2 diabetes mellitus): Code(s): E11.9 - Type 2 diabetes mellitus without complications Status: Acute Assessment and Plan: Management per hospitalist (4) CKD (chronic kidney disease) stage 3, GFR 30-59 ml/min: Code(s): N18.30 - Chronic kidney disease, stage 3 unspecified Status: Acute Assessment and Plan: Lasix and Spironolactone on hold given rise in SCr. (5) CAD (coronary artery disease): Code(s): I25.10 - Atherosclerotic heart disease of [place] coronary artery without angina pectoris Status: Acute Assessment and Plan: LHC showed 99% proximal LAD disease and he is now s/p PCI with MYRIAM x 1 His DAPT has been placed on hold given CT head and brain MRI findings. Given patient just had PCI done to his proximal LAD on 04/05, recommend to resume ASA and Plavix as soon as possible to avoid acute stent thrombosis, which can result in repeat UT, even . Continue Rosuvastatin. Risk factor modification for CAD Cardiac rehab referral (6) Elevated troponin: Code(s): R79.89 - Other specified abnormal findings of blood chemistry Status: Acute Assessment and Plan: Secondary to above and decompensated heart failure. Plan Recommendations and plan discussed with Hospitalist. Subjective Date/time seen: 04/08/24 16:00 Interval history: Cardiology follow up for CAD, cardiomyopathy, NSTEMI Date of service 04/07: Feeling well today. Reports urinating quite a bit. Lower extremity edema is improving. Tele without arrhythmias. Date of service 04/08: Overnight, patient became delirious, and also noted to be more somnolent. ABG showed acute on chronic hypercapnic respiratory failure, he was placed on BIPAP. CT head shows 2 small hyperdense foci in the left temporal area, concerning for hemorrhagic or metastatic lesions. Brain MRI shows multiple small susceptibility artifact areas seen in the left temporal lobe suggestive of hemorrhagic changes, along with possible small lacunar infarcts. At the time of my evaluation, patient states he feels okay. Review of Systems Review of Systems: All systems reviewed & are unremarkable except as noted in HPI and below (HPI) Exam Const: General: comfortable and no acute distress HENMT: Mouth: Yes moist mucous membranes Eyes: General: appearance normal, both eyes and all related structures Sclera: sclerae normal Resp: Effort & Inspection: normal respiratory effort Cardio: Rate: regular rate Rhythm: regular rhythm Other: Mild lower extremity edema. Skin: General skin exam: normal color Neuro: Speech: normal speech Psych: Mental Status: mental status grossly normal Affect: normal affect Objective Data Vital Signs Vital Signs: Vital Signs - 24 hr 04/07/24 17:33 04/07/24 18:00 04/07/24 19:54 Temperature 3
[2024-04-08 16:17] LABS: Glucose Point of Care 238 mg/dl (65-105)
[2024-04-08] MEDS: INSULIN ASPART (*BKC) 100 UNITS/ML SUB-Q ×3 (16:59→21:00)
[2024-04-08] MEDS: INSULIN HUMAN NPH (*BKC) 100 UNITS/ML SUB-Q (18:17)
[2024-04-08] MEDS: IMIPRAMINE HCL 25 MG TABLET PO (20:48)
[2024-04-08 20:49] LABS: Glucose Point of Care 225 mg/dl (65-105)
[2024-04-09] VITALS (21 sets, daily range): BP systolic 93–144; BP diastolic 51–71; PULSE 71–95; RESP 18–22; TEMP 35.8–38.3; O2SAT 92–100
--- NOTE | 2024-04-09 | ECHO_ITS ---
Patient Info Name: Angel Aceves Age: 83 years : 1940 Gender: Male Ht: 60 in Wt: 222 lbs BSA: 2.13 m2 Heart Rhythm: Sinus Rhythm Technical Quality: Fair Exam Date: 04/09/2024 8:22 AM Exam Location: Echo Lab Patient Status: Inpatient Admit Date: 03/31/2024 Staff Ordering Physician: Jimy Elise MD (librado/laxmi) Residential Installer: Jaswinder Quintanilla RDCS Attending Provider: Dalton Villafuerte MD Referring Physician: Arik ANN; Exam Type: CA echo limited w contrast Study Info Indications - Eval for LV thrombus Limited two-dimensional transthoracic echocardiogram is performed with contrast. Contrast/Agitated Saline Contrast/Ag. Saline: Definity Amount: 5.00 ml Existing IV Access: Yes Summary 1. Left ventricular chamber dimension is severely enlarged. 2. Left ventricular systolic function is severely reduced, estimated at 15-20%. 3. There is no increased left ventricular wall thickness. 4. There is no thrombus visualized in the left ventricle. 5. The apex, mid inferior wall, mid inferoseptal, and mid anteroseptal are akinetic. 6. The basal inferior wall, basal anterior wall, mid anterior wall, basal inferoseptal, basal anterolateral wall, mid anterolateral wall, basal anteroseptal, and mid inferolateral wall are hypokinetic. 7. Left atrial chamber dimension is mildly enlarged. 8. There is small pericardial effusion. Left Ventricle Left ventricular chamber dimension is severely enlarged. Left ventricular systolic function is severely reduced, estimated at 15-20%. There is no increased left ventricular wall thickness. There is no thrombus visualized in the left ventricle. The apex, mid inferior wall, mid inferoseptal, and mid anteroseptal are akinetic. The basal inferior wall, basal anterior wall, mid anterior wall, basal inferoseptal, basal anterolateral wall, mid anterolateral wall, basal anteroseptal, and mid inferolateral wall are hypokinetic. All other slater appear normal. Right Ventricle Right ventricular chamber dimension is normal. Right ventricular systolic function is normal. Left Atria Left atrial chamber dimension is mildly enlarged. Right Atria Right atrial chamber dimension is normal. Aortic Valve The aortic valve is trileaflet. There is mild aortic valve sclerosis. Pulmonic Valve The pulmonic valve is normal. Mitral Valve The mitral valve has normal leaflets. Tricuspid Valve The tricuspid valve leaflets are normal. Pericardium/Pleural There is small pericardial effusion. Inferior Vena Cava Dilated inferior vena cava with <50% collapse upon inspiration consistent with elevated right atrial pressure, 15 mmHg. Aorta The aortic root size at the sinus of Valsalva is normal. Tricuspid Valve Name Value Normal Estimated PAP/RSVP RA Pressure 15 mmHg <=5 Ventricles Name Value Normal LV Fractional Shortening/Ejection Fraction 2D/MM LV Diastolic Volume (4C MOD) 136 ml LV EF (4C MOD) 18 % LV Diastolic Volum
[2024-04-09 04:27] LABS: Alveolar/Arterial O2 Gradient 58.1 mmHg; Fractional Inspired Oxygen 32 %; HCO3 ABG 37.6 mEq/l (22.0-26.0); Oxygen Content ABG 16.7 %vol (16.0-22.0); Oxygen Saturation ABG 92.6 % (95.0-100.0); Oxyhemoglobin 93.3 % THb (90.0-100.0); PO2 ABG 75.1 mmHg (80.0-100.0); PO2 FiO2 Ratio Arterial Blood 2.35 %; Total Hemoglobin 12.7 g/dL (12.0-18.0)
[2024-04-09 04:29] LABS: PCO2 ABG 81.2 mmHg (35.0-45.0); Site Drawn RIGHT RADIAL; pH ABG 7.283 (7.350-7.450)
[2024-04-09 04:30] LABS: Device NASAL CANNULA; Modified Allen's Test Pass
[2024-04-09 04:32] LABS: Basophils Percent Auto 0.3 % (0.2-1.2); Eosinophils Absolute Auto 0.2 K/mm3 (0-0.3); Eosinophils Percent Auto 1.6 % (0-4.4); Hematocrit 41.3 % (42.0-52.0); Hemoglobin 12.3 g/dL (14.0-18.0); Immature Granulocyte Absolute 0.05 K/mm3 (0.00-0.031); Immature Granulocyte Percent A 0.4 % (0-0.5); Immature Platelet Fraction Pct 3.5 % (0.9-11.2); Lymphocytes Absolute Auto 1.68 K/mm3 (0.9-3.2); Mean Corpuscular HGB Conc 29.8 g/dl (32-36); Mean Corpuscular Hemoglobin 27.1 pg (26-34); Mean Platelet Volume 10.2 fl (7.4-10.4); Monocytes Absolute Auto 0.8 K/mm3 (0.1-0.6); Neutrophils Absolute Auto 8.5 K/mm3 (1.3-6.7); Neutrophils Percent Auto 75.7 % (45.5-73.1); Platelet Count Result 115 k/mm3 (150-375); Red Blood Count 4.54 M/mm3 (4.6-6.20); Red Cell Distribution Width 14.8 % (11.5-14.5); White Blood Count 11.2 K/mm3 (4.5-10.0)
[2024-04-09 04:43] LABS: Alanine Aminotransferase 41 U/L (6-50); Albumin Level 3.8 g/dL (3.5-5.1); Alkaline Phosphatase 99 U/L (38-126); Anion Gap 1 mmol/L (4-12); Aspartate Amino Transferase 40 U/L (17-59); Bilirubin,Total 0.6 mg/dL (0.2-1.3); Blood Urea Nitrogen 43 mg/dL (9-20); Calcium 8.4 mg/dL (8.4-10.2); Carbon Dioxide 38 mmol/L (22-30); Chloride 99 mmol/L (98-107); Estimated CRCL calculation 23 ml/min; Estimated Glomerular Filt Rate 30; Glucose 149 mg/dL (65-110); Magnesium 2.4 mg/dL (1.6-2.3); Phosphorus 4.4 mg/dL (2.5-4.5); Potassium 4.1 mmol/L (3.4-5.0); Sodium 138 mmol/L (137-145)
[2024-04-09 07:35] LABS: Glucose Point of Care 138 mg/dl (65-105)
[2024-04-09] MEDS: PERFLUTREN LIPID MICROSPHERES 1.5 ML VIAL DILUTED TO 10 ML TOTAL VOLUME IV PUSH (08:42)
[2024-04-09] MEDS: carvediloL 12.5 MG TABLET PO ×2 (09:42→20:00)
[2024-04-09] MEDS: SACUBITRIL/VALSARTAN 24-26 MG TABLET 1 TAB PO ×2 (09:42→20:00)
[2024-04-09] MEDS: ROSUVASTATIN 20 MG TABLET PO (09:43)
[2024-04-09] MEDS: TAMSULOSIN HCL 0.4 MG CAPSULE PO (09:43)
[2024-04-09] MEDS: GABAPENTIN 300 MG CAPSULE 600 MG PO (09:43)
[2024-04-09] MEDS: FERROUS SULFATE 325 MG TABLET DR PO (09:43)
[2024-04-09] MEDS: PRAMIPEXOLE 0.5 MG TABLET PO (09:43)
[2024-04-09] MEDS: EMPAGLIFLOZIN 10 MG TABLET PO (09:43)
[2024-04-09] MEDS: INSULIN ASPART (*BKC) 100 UNITS/ML SUB-Q ×2 (09:44→17:03)
[2024-04-09] MEDS: INSULIN HUMAN NPH (*BKC) 100 UNITS/ML 15 UNITS SUB-Q (09:44)
--- NOTE | 2024-04-09 09:56 | PM.PNPUL ---
Progress Note: A&P Assessment and Plan (1) Acute hypoxic respiratory failure: Code(s): J96.01 - Acute respiratory failure with hypoxia Status: Acute Assessment and Plan: This 83-year-old man with a history of obesity presented with a 2-week history of shortness of breath and hypoxemic hypercapnic respiratory failure. He has been diagnosed with systolic congestive heart failure and is currently receiving treatment. Additionally, he is being treated for a possible lower respiratory tract infection, although the chest X-ray does not clearly indicate infiltrates. A chest CT scan showed small pleural effusions bilaterally with associated atelectasis related to congestive heart failure. He also underwent cardiac catheterization, which revealed elevated left ventricular end-diastolic pressure, and he had a stent placement. The patient's clinical condition worsened over the last 2 days. He was found to be unresponsive, and arterial blood gases indicated acute on chronic hypercapnic respiratory failure, necessitating the resumption of BiPAP support. The patient has improved with BiPAP support, and arterial blood gases done yesterday showed hypercapnic respiratory failure at his baseline. A brain CT showed some abnormalities, raising the question of an acute cerebrovascular accident (CVA). A chest X-ray done yesterday showed probable worsening pulmonary edema with perihilar infiltrates and a small pleural effusion on the left. On physical exam, the patient has more crackles than before. Patient refused BiPAP support last night. He appears fully alert and cooperative this a.m. on physical exam he has a worsening crackles bilaterally which in conjunction with the chest x-ray findings and the elevated BNP suggest congestive heart failure being the cause of his worsening respiratory failure. Plan: Will repeat chest x-ray today. Will continue with BiPAP support at night and p.r.n. during the day. If patient continues to refuse BiPAP support he may not be a candidate for home ventilatory support. (2) T2DM (type 2 diabetes mellitus): Code(s): E11.9 - Type 2 diabetes mellitus without complications Status: Acute (3) Heart failure with reduced ejection fraction: Code(s): I50.20 - Unspecified systolic (congestive) heart failure Status: Acute (4) CKD (chronic kidney disease) stage 3, GFR 30-59 ml/min: Code(s): N18.30 - Chronic kidney disease, stage 3 unspecified Status: Acute Subjective Date/time seen: 04/09/24 09:56 Interval history: There has been no significant change in patient's respiratory status. Patient had difficulty getting used to BiPAP support last night. According to the respiratory therapy notes he took it off. He stated this morning that he does not want to be using masks and BiPAP. Appears fully wake and alert Review of Systems Review of Systems: All systems reviewed & are unremarkable except as noted in HPI and below (HPI and below) Exam Narrative: GENERAL APPEARANCE: Well developed, well nourished, alert and cooperative, and appears to be in in mild respiratory distress while on supplemental oxygen sitting up in bed SKIN: Inspection of the skin reveals no rashes, ulcerations or petechiae. HEENT: Sclerae anicteric and conjunctivae pink and moist. Extraocular movements were intact and pupils were equal, round, and reactive to light. The oral mucosa, hard and soft palate, tongue and posterior pharynx were normal. NECK: Supple. There was no thyroid enlargement, and no tenderness, or masses were felt. LUNGS: Worsening crackles posteriorly, no wheeze CARDIAC: There was a regular rate and rhythm without any murmurs. ABDOMEN: Soft and nontender with normal bowel sounds. There was no organomegaly. LYMPH NODES: No lymphadenopathy was appreciated in the neck. EXTREMITIES: No cyanosis, or clubbing; 1+ edema NEUROLOGIC: Alert and oriented x 3. Normal affect. Objective Data Vital Signs
--- NOTE | 2024-04-09 11:38 | PM.IMPN ---
Progress Note: A&P Assessment and Plan (1) Confusion: Code(s): R41.0 - Disorientation, unspecified Status: Acute Assessment and Plan: Patient more confused overnight (04/07-) with ABG showing worsening hypercarbia. BiPAP adjusted with improvement in his ABG and symptoms. Pulmonary was re-consulted and concerned that acute CVA is contributing to his change in his mental status. CT brain showing 2 small hyperdense foci left temporal area; consider hemorrhagic or metastatic. DAPT and Lovenox held Brain MRI showing multiple small susceptibility artifact areas seen in left temporal lobe suggesting of hemorrhagic changes. Brain contusion possible. Also with 2 small foci of diffusion restriction in the right frontal and left occipital lobes which may represent small lacunar infarcts. Discussed with radiology who felt these lesions are relatively acute process. Consider embolic given different location. No LV thrombus by Echo on 04/01. Repeat limited Echo again showing no thrombus. Neurosurgery recommended continuing to hold DAPT and repeat CT brain this morning. If no change or improved, then would recommend continuation of the DAPT given the risk for stent thrombosis. Neurology consulted. Carotid US showing <50% stenosis bilateral ICA with no visible flow in the left vertebral artery. No CTA head/neck due to EDUIN/CKD. Repeat CT head showing 2 hyperdense masses left temporal lobe, most likely acute subarachnoid hemorrhage. Discussed with neurosurgery. She recommended to continue to hold the DAPT and repeat head CT on Friday (04/12) unless Cardiology felt that it would be prudent to resume them sooner. She stated that the risk of cerebral bleeding is lower than the risk of stent thrombosis. Spoke with Cardiology who would prefer to resume DAPT and since the risk of cerebral bleeding is lower, plan to resume DAPT today. Jorge forgo repeat head CT and just follow clinically. Neurosurgery aware. Neurology consulted but neurosurgery called so will re-order consult. Spoke with patient and and discussed the severity of his illness, hospice and DNR status. Spoke with about the severity of the patient's illness and would consider hospice and DNR status. All questions answered. (2) Acute hypoxic respiratory failure: Code(s): J96.01 - Acute respiratory failure with hypoxia Status: Acute Assessment and Plan: Due to pneumonia and CHF with undiagnosed ENRIQUE as well. Pulmonary consulted for associated hypercapnic respiratory failure due has underlying ENRIQUE Patient tolerating BiPAP at times. Refused BiPAP overnight and ABG showing worsening hypercapnia Wean oxygen as tolerated Appreciate Pulmonary input Home oxygen evaluation at discharge and follow-up as an outpatient basis. (3) Heart failure with reduced ejection fraction: Code(s): I50.20 - Unspecified systolic (congestive) heart failure Status: Acute Assessment and Plan: Patient presents with SOB. Concern for CHF. Echo showing EF 15-20% with hypokinetic and akinetic segments, Grade I diastolic dysfunction and mild valvular disease Coreg contiued. Entresto added. He was started on furosemide IV. Spironolactone and Jardiance added Ischemic evaluation with findings of 99% proximal LAD disease status post PCI with MYRAIM x1. Was on aspirin and Plavix Will need LifeVest at discharge Cr higher again today so continue to hold IV Lasix and Spironolactone. (4) CAD (coronary artery disease): Code(s): I25.10 - Atherosclerotic heart disease of [place] coronary artery without angina pectoris Status: Acute Assessment and Plan: As above. Continue Crestor Resume DAPT (5) Elevated troponin: Code(s): R79.89 - Other specified abnormal findings of blood chemistry Status: Acute Assessment and Plan: Secondary to cardiac ischemia and CHF. CAD with [facility] 04/05 showing 99% proximal LAD disease status post PCI with MYRIAM x1. Medical manage
[2024-04-09 12:28] LABS: Glucose Point of Care 215 mg/dl (65-105)
--- NOTE | 2024-04-09 12:34 | PM.PNCARD ---
Progress Note: A&P Assessment and Plan (1) Confusion: Code(s): R41.0 - Disorientation, unspecified Status: Acute Assessment and Plan: CT head shows 2 small hyperdense foci in the left temporal area, concerning for hemorrhagic or metastatic lesions. Brain MRI shows multiple small susceptibility artifact areas seen in the left temporal lobe suggestive of hemorrhagic changes, along with possible small lacunar infarcts. Neurosurgery has been consulted. Repeat CT scan is pending today. If stable, resume dual anti-platelet therapy per neurosurgery. His DAPT has been placed on hold for this. Given patient just had PCI done to his proximal LAD on 04/05, recommend to resume ASA and Plavix as soon as possible to avoid acute stent thrombosis, which can result in repeat IA, even . Limited echo did not show any evidence of LV thrombus. Severely reduced ejection fraction however. (2) Heart failure with reduced ejection fraction: Code(s): I50.20 - Unspecified systolic (congestive) heart failure Status: Acute Assessment and Plan: New diagnosis of HFrEF, EF 15-20% Lasix and Spironolactone on hold given rise in SCr. Continue GDMT with Entresto, Coreg, Jardiance. Life Vest ordered. (3) T2DM (type 2 diabetes mellitus): Code(s): E11.9 - Type 2 diabetes mellitus without complications Status: Acute Assessment and Plan: Management per hospitalist (4) CKD (chronic kidney disease) stage 3, GFR 30-59 ml/min: Code(s): N18.30 - Chronic kidney disease, stage 3 unspecified Status: Acute Assessment and Plan: Lasix and Spironolactone on hold given rise in SCr. (5) CAD (coronary artery disease): Code(s): I25.10 - Atherosclerotic heart disease of [place] coronary artery without angina pectoris Status: Acute Assessment and Plan: LHC showed 99% proximal LAD disease and he is now s/p PCI with MYRIAM x 1 His DAPT has been placed on hold given CT head and brain MRI findings. Given patient just had PCI done to his proximal LAD on 04/05, recommend to resume ASA and Plavix as soon as possible to avoid acute stent thrombosis, which can result in repeat IA, even . Continue Rosuvastatin. Risk factor modification for CAD Cardiac rehab referral (6) Elevated troponin: Code(s): R79.89 - Other specified abnormal findings of blood chemistry Status: Acute Assessment and Plan: Secondary to above and decompensated heart failure. Plan I discussed with his as well as with patient the gravity of his situation. His CO2 is 85. He is refusing to use his BiPAP. His micro hemorrhages in his brain with recent PCI to prox LAD. His ejection fraction is extremely poor and he is in decompensated heart failure. The constellation of these significant relatively acute issues in addition to baseline health problems result in a poor prognosis and hospice or palliative care should be considered Subjective Date/time seen: 04/09/24 12:34 Interval history: Cardiology follow up for CAD, cardiomyopathy, NSTEMI Date of service 04/07: Feeling well today. Reports urinating quite a bit. Lower extremity edema is improving. Tele without arrhythmias. Date of service 04/08: Overnight, patient became delirious, and also noted to be more somnolent. ABG showed acute on chronic hypercapnic respiratory failure, he was placed on BIPAP. CT head shows 2 small hyperdense foci in the left temporal area, concerning for hemorrhagic or metastatic lesions. Brain MRI shows multiple small susceptibility artifact areas seen in the left temporal lobe suggestive of hemorrhagic changes, along with possible small lacunar infarcts. At the time of my evaluation, patient states he feels okay. Date of service 04/09/2024: He has altered level of consciousness. He is not using his BiPAP. He refuses it. Denies any chest pain or shortness of breath but appears a bit agitated. Review of Systems Ps
[2024-04-09] MEDS: ASPIRIN 81 MG CHEWABLE TABLET PO (15:17)
[2024-04-09] MEDS: CLOPIDOGREL BISULFATE 75 MG TABLET PO (15:17)
--- NOTE | 2024-04-09 16:05 | WPDNEURCNPN ---
Assessment and Plan Assessment and plan (1) Confusion: Code(s): R41.0 - Disorientation, unspecified Status: Acute Assessment and Plan: It is difficult to evaluate his mental status reliably since he is very sleepy. Patient is fairly obese and has history of to active sleep apnea syndrome and is on. Patient's states that he is fairly alert in the morning. The finding of abnormality on the CT or the MRI appeared to be coincidental and not the cause for his problem. Hence at this time I would suggest to continue with antiplatelets as per the recommendation by the deflector operator in view of the coronary stenting. (2) CAD (coronary artery disease): Code(s): I25.10 - Atherosclerotic heart disease of [place] coronary artery without angina pectoris Status: Acute (3) CKD (chronic kidney disease) stage 3, GFR 30-59 ml/min: Code(s): N18.30 - Chronic kidney disease, stage 3 unspecified Status: Acute (4) Heart failure with reduced ejection fraction: Code(s): I50.20 - Unspecified systolic (congestive) heart failure Status: Acute (5) Elevated brain natriuretic peptide (BNP) level: Code(s): R79.89 - Other specified abnormal findings of blood chemistry Status: Acute (6) T2DM (type 2 diabetes mellitus): Code(s): E11.9 - Type 2 diabetes mellitus without complications Status: Acute (7) Acute hypoxic respiratory failure: Code(s): J96.01 - Acute respiratory failure with hypoxia Status: Acute (8) Pneumonia: Code(s): J18.9 - Pneumonia, unspecified organism Status: Acute (9) Elevated troponin: Code(s): R79.89 - Other specified abnormal findings of blood chemistry Status: Acute Plan He mental status could well be due to hypercarbia since he has pCO2 fairly high at 81. The patient has respiratory failure now suggest to continue to treat him from the pulmonary point of view. With regard to antiplatelets out suggest to continue with it as also suggested with a deflector operator. I have reviewed the MRI and CT scan films do not feel that they are sufficiently abnormal findings to suggest any major stroke or even the bleed is questionable. Sometimes minor coincidental infarcts can have hemorrhagic component. Please let me know if I could be of any further assistance. Consult date: 04/09/24 HPI: Angel Batista Riдмитрий is a 83 year old male admitted to the hospital on 03/31/2024. The patient was here in the room at the time evaluation. She thought that he was having a pneumonia as he did in the past as he was short of breath. He has been treated for the various medical conditions however he continues to be somewhat lethargic this afternoon. He was more alert in the morning. He also history of sleep apnea syndrome and is on CPAP or BiPAP. The patient's states that he needs to have his oxygen. However patient is very somnolent and I wake him up and then he goes back to sleep. It is difficult to get his attention but according to his is generally sedentary and sleepy awake in the morning after he wakes up from see using CPAP overnight. CT scan of brain has raise possibility of some abnormality which will be discussed below. The patient has been evaluated by neurosurgeons also. There is a question of subarachnoid bleed. There are some areas of questionable infarct on the diffusion scanning. The patient has also been evaluated by deflector operator and patient has had cardiac stenting and is on antiplatelets. The question being raised if the antiplatelets could have led to micro bleed. Review of Systems Review of Systems: ROS unobtainable: Yes unobtainable due to medical condition PMFSH Family History Family History Father History of blood clots Social History Social History Smoking status: Never smoker Alcohol intake: ne
[2024-04-09] MEDS: INSULIN HUMAN NPH (*BKC) 100 UNITS/ML SUB-Q (17:03)
[2024-04-09 17:05] LABS: Glucose Point of Care 141 mg/dl (65-105)
[2024-04-09 17:51] LABS: Cholesterol 87 mg/dL (0-200); HDL Direct 31 mg/dL; Triglycerides 104 mg/dL (<150)
[2024-04-09 18:02] LABS: LDL Cholesterol Direct 47 mg/dL
[2024-04-09 18:09] LABS: Vitamin D 25 Hydroxy 41.1 ng/mL
[2024-04-09 18:57] LABS: Folic Acid 14.4 ng/mL (2.76->20)
[2024-04-09 20:25] LABS: Glucose Point of Care 181 mg/dl (65-105)
[2024-04-10] VITALS (23 sets, daily range): BP systolic 103–122; BP diastolic 48–65; PULSE 66–85; RESP 19–28; TEMP 35.6–36.9; O2SAT 93–99
[2024-04-10 04:02] LABS: Basophils Percent Auto 0.4 % (0.2-1.2); Eosinophils Absolute Auto 0.2 K/mm3 (0-0.3); Eosinophils Percent Auto 2.8 % (0-4.4); Hemoglobin 11.2 g/dL (14.0-18.0); Immature Granulocyte Absolute 0.02 K/mm3 (0.00-0.031); Immature Granulocyte Percent A 0.2 % (0-0.5); Immature Platelet Fraction Pct 3.7 % (0.9-11.2); Lymphocytes Absolute Auto 1.65 K/mm3 (0.9-3.2); Lymphocytes Percent Auto 19.4 % (18.3-44.2); Mean Corpuscular HGB Conc 29.5 g/dl (32-36); Mean Corpuscular Volume 91.6 fl (80-100); Mean Platelet Volume 10.2 fl (7.4-10.4); Monocytes Absolute Auto 0.7 K/mm3 (0.1-0.6); Monocytes Percent Auto 8.4 % (2.6-8.5); Neutrophils Absolute Auto 5.9 K/mm3 (1.3-6.7); Neutrophils Percent Auto 68.8 % (45.5-73.1); Platelet Count Result 112 k/mm3 (150-375); Red Blood Count 4.15 M/mm3 (4.6-6.20); Red Cell Distribution Width 14.6 % (11.5-14.5); White Blood Count 8.5 K/mm3 (4.5-10.0)
[2024-04-10 04:11] LABS: Albumin Level 3.5 g/dL (3.5-5.1); Anion Gap 4 mmol/L (4-12); Blood Urea Nitrogen 44 mg/dL (9-20); Calcium 8.1 mg/dL (8.4-10.2); Carbon Dioxide 36 mmol/L (22-30); Chloride 97 mmol/L (98-107); Estimated CRCL calculation 23 ml/min; Estimated Glomerular Filt Rate 30; Glucose 108 mg/dL (65-110); Magnesium 2.6 mg/dL (1.6-2.3); Phosphorus 3.5 mg/dL (2.5-4.5); Potassium 3.7 mmol/L (3.4-5.0); Sodium 137 mmol/L (137-145)
[2024-04-10 07:51] LABS: Glucose Point of Care 110 mg/dl (65-105)
--- NOTE | 2024-04-10 09:18 | PM.PNCARD ---
Progress Note: A&P Assessment and Plan (1) CAD (coronary artery disease): Code(s): I25.10 - Atherosclerotic heart disease of [place] coronary artery without angina pectoris Status: Acute (2) Heart failure with reduced ejection fraction: Code(s): I50.20 - Unspecified systolic (congestive) heart failure Status: Acute Plan 83-year-old man with: Severe ischemic cardiomyopathy and difficult collection of other comorbidities as well. He is clinically slowly improving with guideline directed medical therapy for his a LV dysfunction/low ejection fraction and successful PCI of his subtotal proximal LAD stenosis. Hopefully over time some of his anterior wall is viable and his ejection fraction will improve somewhat. Today I do not plan on making any adjustments in his medical regimen. Dual anti-platelet therapy for his LAD stent is mandatory and has been resumed. Yared Cooper MD [facility] Subjective Date/time seen: Date of service: 04/10/24 09:18 Interval history: Cardiology follow up for CAD, cardiomyopathy, NSTEMI Date of service 04/07: Feeling well today. Reports urinating quite a bit. Lower extremity edema is improving. Tele without arrhythmias. Date of service 04/08: Overnight, patient became delirious, and also noted to be more somnolent. ABG showed acute on chronic hypercapnic respiratory failure, he was placed on BIPAP. CT head shows 2 small hyperdense foci in the left temporal area, concerning for hemorrhagic or metastatic lesions. Brain MRI shows multiple small susceptibility artifact areas seen in the left temporal lobe suggestive of hemorrhagic changes, along with possible small lacunar infarcts. At the time of my evaluation, patient states he feels okay. Date of service 04/09/2024: He has altered level of consciousness. He is not using his BiPAP. He refuses it. Denies any chest pain or shortness of breath but appears a bit agitated. Date of service 04/10/2024: The patient is seated in the bedside chair is alert offers no significant complaints and visiting with family. He is hoping to be discharged. Family understands that is not going to happen today. Complains that his BiPAP mask is uncomfortable but apparently he did keep it on last night Exam Const: General: comfortable, no acute distress and confusion Orientation/consciousness: confusion Other: Able to lie flat HENMT: Face/Nose/Sinus: Normal nares present and no epistaxis Mouth: Yes moist mucous membranes Eyes: General: appearance normal, both eyes and all related structures Sclera: sclerae normal Pupils: Equal, round and reactive pupils present Neck: Neck: supple and no JVD Carotids: no bruits Resp: Effort & Inspection: normal respiratory effort Auscultation: not clear to auscultation bilaterally, crackles bilateral at the base and lung sounds not diminished Other: On supplemental oxygen Cardio: Rate: regular rate Rhythm: regular rhythm Heart sounds: no gallops, no murmurs and no rubs Other: Mild lower extremity edema. GI: Auscultation: normal bowel sounds Skin: General skin exam: normal color, rashes and/or lesions noted and no erythema Other: Warm Neuro: General: confusion Cranial nerves: Yes Equal, round and reactive pupils present Speech: normal speech Sensory Exam: normal sensation Extrem: General: no edema and pedal edema (Mild pretibial and pedal edema, R worse than L) Other: Bilateral lower extremity edema Psych: Mental Status: mental status grossly normal Affect: normal affect Objective Data Vital Signs Vital Signs: Vital Signs - 24 hr 04/09/24 09:26 04/09/24 09:42 04/09/24 10:00 Temperature Pulse Rate 86 82 Respiratory Rate Blood Pressure Pulse Oximetry 94 Oxygen Delivery Nasal Cannula Oxygen Flow Rate 2 Fraction of Inspired Oxygen 04/09/24 11:28 04/09/24 16:24 04/09/24 12:00 Temperature 35.8 C L 36.7 C Pulse Rate 83 75 82
[2024-04-10] MEDS: PRAMIPEXOLE 0.5 MG TABLET PO (09:26)
[2024-04-10] MEDS: ASPIRIN 81 MG CHEWABLE TABLET PO (09:26)
[2024-04-10] MEDS: ROSUVASTATIN 20 MG TABLET PO (09:26)
[2024-04-10] MEDS: GABAPENTIN 300 MG CAPSULE 600 MG PO ×2 (09:27→20:34)
[2024-04-10] MEDS: CLOPIDOGREL BISULFATE 75 MG TABLET PO (09:27)
[2024-04-10] MEDS: EMPAGLIFLOZIN 10 MG TABLET PO (09:28)
[2024-04-10] MEDS: FERROUS SULFATE 325 MG TABLET DR PO (09:28)
[2024-04-10] MEDS: TAMSULOSIN HCL 0.4 MG CAPSULE PO (09:29)
[2024-04-10] MEDS: carvediloL 12.5 MG TABLET PO ×2 (09:29→20:34)
[2024-04-10] MEDS: SACUBITRIL/VALSARTAN 24-26 MG TABLET 1 TAB PO ×2 (09:29→20:34)
[2024-04-10] MEDS: INSULIN HUMAN NPH (*BKC) 100 UNITS/ML 15 UNITS SUB-Q (09:40)
--- NOTE | 2024-04-10 09:40 | PM.PNPUL ---
Progress Note: A&P Assessment and Plan (1) Acute hypoxic respiratory failure: Code(s): J96.01 - Acute respiratory failure with hypoxia Status: Acute Assessment and Plan: This 83-year-old man with a history of obesity presented with a 2-week history of shortness of breath and hypoxemic hypercapnic respiratory failure. He has been diagnosed with systolic congestive heart failure and is currently receiving treatment. Additionally, he is being treated for a possible lower respiratory tract infection, although the chest X-ray does not clearly indicate infiltrates. A chest CT scan showed small pleural effusions bilaterally with associated atelectasis related to congestive heart failure. He also underwent cardiac catheterization, which revealed elevated left ventricular end-diastolic pressure, and he had a stent placement. The patient's clinical condition worsened over the last 3 days. Patient found to have worsening hypercapnic respiratory failure related to pulmonary edema. Chest x-ray showed worsening lung congestion also small pleural effusions. Patient had had extensive workup for possible stroke. On last arterial blood gas he had worsening hypercapnic respiratory failure. On today's exam he appears fully awake, sitting in chair. Lung exam has been essentially unchanged over the last 2 days. Plan: Please continue BiPAP support at night and as needed during the day. 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 Although the patient has previously objected to using BiPAP, he has shown increased compliance over the past few days. I recommend repeating arterial blood gases. Awaiting approval for the home ventilator. I will continue to monitor the patient alongside you. (2) T2DM (type 2 diabetes mellitus): Code(s): E11.9 - Type 2 diabetes mellitus without complications Status: Acute (3) Heart failure with reduced ejection fraction: Code(s): I50.20 - Unspecified systolic (congestive) heart failure Status: Acute (4) CKD (chronic kidney disease) stage 3, GFR 30-59 ml/min: Code(s): N18.30 - Chronic kidney disease, stage 3 unspecified Status: Acute Subjective Date/time seen: 04/10/24 09:40 Interval history: Patient has no new respiratory symptoms. Sitting in chair fully awake on just supplemental oxygen. Reportedly used BiPAP support last night. Expressed concern about continuing use of facial mask/BiPAP. Exam Narrative: GENERAL APPEARANCE: Well developed, well nourished, alert and cooperative, and appears to be in in mild respiratory distress while on supplemental oxygen sitting in chair SKIN: Inspection of the skin reveals no rashes, ulcerations or petechiae. HEENT: Sclerae anicteric and conjunctivae pink and moist. Extraocular movements were intact and pupils were equal, round, and reactive to light. The oral mucosa, hard and soft palate, tongue and posterior pharynx were normal. NECK: Supple. There was no thyroid enlargement, and no tenderness, or masses were felt. LUNGS: Crackles posteriorly, no wheezing CARDIAC: There was a regular rate and rhythm without any murmurs. ABDOMEN: Soft and nontender with normal bowel sounds. There was no organomegaly. LYMPH NODES: No lymphadenopathy was appreciated in the neck. EXTREMITIES: No cyanosis, or clubbing; 1+ edema NEUROLOGIC: Alert and oriented x 3. Normal affect. Objective Data Vital Signs Vital Signs: Vital Signs - 24 hr 04/09/24 09:42 04/09/24 10:00 04/09/24 11:28 Temperature 35.8 C L Pulse Rate 86 82 83 Respiratory Rate 22 H Blood Pressure 119/67 Pulse Oximetry 92 Oxygen Delivery Oxygen Flow Rate Fraction of Inspired Oxygen 04/09/24 16:24 04/09/24 12:00 04/09/24 14:00 Temperature 36.7 C Pulse Rate 75 82 80 Respiratory Rate 22 H Blood Pressure 105/58 L
[2024-04-10] MEDS: INSULIN ASPART (*BKC) 100 UNITS/ML SUB-Q ×3 (09:42→12:51)
[2024-04-10 11:40] LABS: Glucose Point of Care 212 mg/dl (65-105)
--- NOTE | 2024-04-10 14:04 | PM.IMPN ---
Progress Note: A&P Assessment and Plan (1) Confusion: Code(s): R41.0 - Disorientation, unspecified Status: Acute Assessment and Plan: Patient was more confused overnight (04/07-) with ABG showing worsening hypercarbia. BiPAP adjusted with improvement in his ABG and symptoms. CT brain showing 2 small hyperdense foci left temporal area; consider hemorrhagic or metastatic. DAPT and Lovenox were held. Brain MRI showing multiple small susceptibility artifact areas seen in left temporal lobe suggesting of hemorrhagic changes. Brain contusion possible. Also with 2 small foci of diffusion restriction in the right frontal and left occipital lobes which may represent small lacunar infarcts. Patient has not had had head trauma. Discussed with radiology who felt these lesions are relatively acute process. Consider embolic given different location. No LV thrombus by Echo on 04/01. Repeat limited Echo 04/09 showing no LV thrombus. Discussed with Neurosurgery who recommended continuing to hold DAPT and repeat CT brain. Neurology consulted. Carotid US showing <50% stenosis bilateral ICA with no visible flow in the left vertebral artery. No CTA head/neck due to EDUIN/CKD. Repeat CT head 04/09 showing 2 hyperdense masses left temporal lobe, most likely acute subarachnoid hemorrhage. Discussed with neurosurgery. She recommended to continue to hold the DAPT and repeat head CT on Friday (04/12) unless Cardiology felt that it would be prudent to resume them sooner. She stated that the risk of cerebral bleeding is lower than the risk of stent thrombosis. Spoke with Cardiology who would prefer to resume DAPT since the risk of cerebral bleeding is lower so DAPT resumed on 04/09. Will forgo repeat head CT and just follow clinically. Have spoken with patient, and son about the severity of his illness, hospice and DNR status. Code status changed to DNR. Hospice being considered. (2) Subarachnoid hemorrhage: Code(s): I60.9 - Nontraumatic subarachnoid hemorrhage, unspecified Status: Acute Assessment and Plan: As above (3) CVA (cerebral vascular accident): Code(s): I63.9 - Cerebral infarction, unspecified Status: Acute Assessment and Plan: As above. (4) Acute hypoxic respiratory failure: Code(s): J96.01 - Acute respiratory failure with hypoxia Status: Acute Assessment and Plan: Patient with hypercapnic respiratory failure due to pneumonia and CHF with undiagnosed ENRIQUE as well. Pulmonary consulted. Patient tolerating BiPAP at times. When he refuses BiPAP, his ABG worsens Wean oxygen as tolerated Appreciate Pulmonary input (5) Heart failure with reduced ejection fraction: Code(s): I50.20 - Unspecified systolic (congestive) heart failure Status: Acute Assessment and Plan: Patient presents with SOB c/w CHF. Echo showing EF 15-20% with hypokinetic and akinetic segments, Grade I diastolic dysfunction and mild valvular disease Coreg continued. Entresto added. He was started on furosemide IV. Spironolactone and Jardiance added Ischemic evaluation with findings of 99% proximal LAD disease status post PCI with MYRIAM x1. Was on aspirin and Plavix The need for LifeVest was discussed Cr higher then baseline but stable today. Continue to hold IV Lasix and Spironolactone. (6) CAD (coronary artery disease): Code(s): I25.10 - Atherosclerotic heart disease of [place] coronary artery without angina pectoris Status: Acute Assessment and Plan: As above. Continue Crestor DAPT resumed (7) Elevated troponin: Code(s): R79.89 - Other specified abnormal findings of blood chemistry Status: Acute Assessment and Plan: Secondary to cardiac ischemia and CHF. CAD with [facility] 04/05 showing 99% proximal LAD disease status post PCI with MYRIAM x1. Medical management as above (8) Pneumonia: Code(s): J18.9 - Pneumonia, unspecified organism
[2024-04-10 15:42] LABS: Glucose Point of Care 257 mg/dl (65-105)
[2024-04-10 19:55] LABS: Glucose Point of Care 268 mg/dl (65-105)
[2024-04-10] MEDS: IMIPRAMINE HCL 25 MG TABLET PO (20:34)
[2024-04-11] VITALS (19 sets, daily range): BP systolic 93–112; BP diastolic 48–62; PULSE 68–74; RESP 16–22; TEMP 35.8–36.6; O2SAT 93–100
[2024-04-11 04:34] LABS: Basophils Percent Auto 0.5 % (0.2-1.2); Eosinophils Absolute Auto 0.3 K/mm3 (0-0.3); Eosinophils Percent Auto 3.1 % (0-4.4); Hematocrit 37.2 % (42.0-52.0); Hemoglobin 11.3 g/dL (14.0-18.0); Immature Granulocyte Absolute 0.02 K/mm3 (0.00-0.031); Immature Granulocyte Percent A 0.2 % (0-0.5); Immature Platelet Fraction Pct 3.9 % (0.9-11.2); Lymphocytes Absolute Auto 1.39 K/mm3 (0.9-3.2); Lymphocytes Percent Auto 17.1 % (18.3-44.2); Mean Corpuscular HGB Conc 30.4 g/dl (32-36); Mean Corpuscular Hemoglobin 27.4 pg (26-34); Mean Corpuscular Volume 90.3 fl (80-100); Mean Platelet Volume 10.5 fl (7.4-10.4); Monocytes Absolute Auto 0.7 K/mm3 (0.1-0.6); Monocytes Percent Auto 8.1 % (2.6-8.5); Neutrophils Absolute Auto 5.8 K/mm3 (1.3-6.7); Platelet Count Result 92 k/mm3 (150-375); Red Blood Count 4.12 M/mm3 (4.6-6.20); Red Cell Distribution Width 14.6 % (11.5-14.5); White Blood Count 8.1 K/mm3 (4.5-10.0)
[2024-04-11 04:56] LABS: Alanine Aminotransferase 35 U/L (6-50); Albumin Level 3.2 g/dL (3.5-5.1); Alkaline Phosphatase 89 U/L (38-126); Anion Gap 3 mmol/L (4-12); Aspartate Amino Transferase 42 U/L (17-59); Bilirubin,Total 0.5 mg/dL (0.2-1.3); Blood Urea Nitrogen 47 mg/dL (9-20); Carbon Dioxide 35 mmol/L (22-30); Chloride 97 mmol/L (98-107); Estimated CRCL calculation 23 ml/min; Estimated Glomerular Filt Rate 30; Glucose 158 mg/dL (65-110); Potassium 3.8 mmol/L (3.4-5.0); Sodium 135 mmol/L (137-145)
[2024-04-11 05:03] LABS: Platelet Estimate Decreased (Adequate)
[2024-04-11 05:05] LABS: Hypochromasia 1+
[2024-04-11 05:06] LABS: Anisocytosis 1+; Schistocytes None Seen
[2024-04-11 07:53] LABS: Glucose Point of Care 161 mg/dl (65-105)
--- NOTE | 2024-04-11 10:08 | PM.PNCARD ---
Progress Note: A&P Assessment and Plan (1) CAD (coronary artery disease): Code(s): I25.10 - Atherosclerotic heart disease of [place] coronary artery without angina pectoris Status: Acute (2) Ischemic cardiomyopathy: Code(s): I25.5 - Ischemic cardiomyopathy Status: Acute Plan 83-year-old man with: Severe ischemic cardiomyopathy with subtotal stenosis in the proximal LAD which was stented last week. He is on appropriate guideline directed medical therapy and dual anti-platelet therapy. There are no other cardiovascular issues that require attention in the hospital. I am not going to advance his medical therapy today as he is stable. Obviously the hope is that his left ventricle will improve following revascularization. It is also clear that this will certainly not normalize. It is clear that the patient has very low poor understanding of his condition despite the fact that I discussed with him at great length for the last couple of days. He seems to either not understand or be in denial that he has serious heart disease. Yared Cooper MD [facility] Subjective Date/time seen: Date of service: 04/11/24 10:08 Interval history: Cardiology follow up for CAD, cardiomyopathy, NSTEMI Date of service 04/07: Feeling well today. Reports urinating quite a bit. Lower extremity edema is improving. Tele without arrhythmias. Date of service 04/08: Overnight, patient became delirious, and also noted to be more somnolent. ABG showed acute on chronic hypercapnic respiratory failure, he was placed on BIPAP. CT head shows 2 small hyperdense foci in the left temporal area, concerning for hemorrhagic or metastatic lesions. Brain MRI shows multiple small susceptibility artifact areas seen in the left temporal lobe suggestive of hemorrhagic changes, along with possible small lacunar infarcts. At the time of my evaluation, patient states he feels okay. Date of service 04/09/2024: He has altered level of consciousness. He is not using his BiPAP. He refuses it. Denies any chest pain or shortness of breath but appears a bit agitated. Date of service 04/10/2024: The patient is seated in the bedside chair is alert offers no significant complaints and visiting with family. He is hoping to be discharged. Family understands that is not going to happen today. Complains that his BiPAP mask is uncomfortable but apparently he did keep it on last night Date of service 04/11/2024: The patient clinically is stable he is sitting up in bed alert and visiting with his family. Patient is constantly talking about wanting to be discharged to home. Denies any shortness of breath chest pain or cardiovascular concerns. Discussed the situation with the patient and family at length again. Exam Const: General: comfortable, no acute distress and confusion Orientation/consciousness: confusion Other: Able to lie flat HENMT: Face/Nose/Sinus: Normal nares present and no epistaxis Mouth: Yes moist mucous membranes Eyes: General: appearance normal, both eyes and all related structures Sclera: sclerae normal Pupils: Equal, round and reactive pupils present Neck: Neck: supple and no JVD Carotids: no bruits Resp: Effort & Inspection: normal respiratory effort Auscultation: not clear to auscultation bilaterally, crackles bilateral at the base and lung sounds not diminished Other: On supplemental oxygen Cardio: Rate: regular rate Rhythm: regular rhythm Heart sounds: no gallops, no murmurs and no rubs Other: Mild lower extremity edema. GI: Auscultation: normal bowel sounds Skin: General skin exam: normal color, rashes and/or lesions noted and no erythema Other: Warm Neuro: General: confusion Cranial nerves: Yes Equal, round and reactive pupils present Speech: normal speech Sensory Exam: normal sensation Extrem: General: no edema and pedal edema (Mild pretibial and pedal edema, R worse than L) Other: Bilat
[2024-04-11 11:31] LABS: Glucose Point of Care 179 mg/dl (65-105)
--- NOTE | 2024-04-11 12:08 | PM.PNPUL ---
Progress Note: A&P Assessment and Plan (1) Acute hypoxic respiratory failure: Code(s): J96.01 - Acute respiratory failure with hypoxia Status: Acute Assessment and Plan: This 83-year-old man with a history of obesity presented with a 2-week history of shortness of breath and hypoxemic hypercapnic respiratory failure. He has been diagnosed with systolic congestive heart failure and is currently receiving treatment. Additionally, he is being treated for a possible lower respiratory tract infection, although the chest X-ray does not clearly indicate infiltrates. A chest CT scan showed small pleural effusions bilaterally with associated atelectasis related to congestive heart failure. He also underwent cardiac catheterization, which revealed elevated left ventricular end-diastolic pressure, and he had a stent placement. The patient's clinical condition worsened over the last 3 days. Patient found to have worsening hypercapnic respiratory failure related to pulmonary edema. Chest x-ray showed worsening lung congestion also small pleural effusions. Patient had had extensive workup for possible stroke. On last arterial blood gas he had worsening hypercapnic respiratory failure. On today's exam he appears fully awake, sitting up in bed. Lung exam has been essentially unchanged over the last 2 days. Plan: Please continue BiPAP support at night and as needed during the day. 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 Although the patient has previously objected to using BiPAP, he has shown increased compliance over the past few days. I recommend repeating arterial blood gases. Awaiting approval for the home ventilator. I will continue to monitor the patient alongside you. (2) T2DM (type 2 diabetes mellitus): Code(s): E11.9 - Type 2 diabetes mellitus without complications Status: Acute (3) Heart failure with reduced ejection fraction: Code(s): I50.20 - Unspecified systolic (congestive) heart failure Status: Acute (4) CKD (chronic kidney disease) stage 3, GFR 30-59 ml/min: Code(s): N18.30 - Chronic kidney disease, stage 3 unspecified Status: Acute Subjective Date/time seen: 04/11/24 12:08 Interval history: Patient has no new respiratory issues over the last 24 hours. Reportedly he used BiPAP support last night. Currently on just nasal cannula again expressing concern with the difficulty he is having using BiPAP support. Review of Systems Review of Systems: All systems reviewed & are unremarkable except as noted in HPI and below (HPI and below) Exam Narrative: GENERAL APPEARANCE: Well developed, well nourished, alert and cooperative, and appears to be in in mild respiratory distress while on supplemental oxygen sitting in chair SKIN: Inspection of the skin reveals no rashes, ulcerations or petechiae. HEENT: Sclerae anicteric and conjunctivae pink and moist. Extraocular movements were intact and pupils were equal, round, and reactive to light. The oral mucosa, hard and soft palate, tongue and posterior pharynx were normal. NECK: Supple. There was no thyroid enlargement, and no tenderness, or masses were felt. LUNGS: Crackles posteriorly, no wheezing CARDIAC: There was a regular rate and rhythm without any murmurs. ABDOMEN: Soft and nontender with normal bowel sounds. There was no organomegaly. LYMPH NODES: No lymphadenopathy was appreciated in the neck. EXTREMITIES: No cyanosis, or clubbing; 1+ edema NEUROLOGIC: Alert and oriented x 3. Normal affect. Objective Data Vital Signs Vital Signs: Vital Signs - 24 hr 04/10/24 13:40 04/10/24 14:01 04/10/24 15:33 Temperature 35.9 C L Pulse Rate 74 68 Respiratory Rate 19 28 H Blood Pressure 103/54 L Pulse Oximetry 94 94 98 Oxygen Delivery BiPAP BiPAP Oxygen Flow Rate Fraction of
[2024-04-11] MEDS: INSULIN ASPART (*BKC) 100 UNITS/ML SUB-Q ×3 (12:39→16:43)
--- NOTE | 2024-04-11 14:49 | PM.IMPN ---
Progress Note: A&P Assessment and Plan (1) Confusion: Code(s): R41.0 - Disorientation, unspecified Status: Acute Assessment and Plan: Patient was more confused overnight (04/07-) with ABG showing worsening hypercarbia. BiPAP adjusted with improvement in his ABG and symptoms. CT brain showing 2 small hyperdense foci left temporal area; consider hemorrhagic or metastatic. DAPT and Lovenox were held. Brain MRI showing multiple small susceptibility artifact areas seen in left temporal lobe suggesting of hemorrhagic changes. Brain contusion possible. Also with 2 small foci of diffusion restriction in the right frontal and left occipital lobes which may represent small lacunar infarcts. Patient has not had had head trauma. Discussed with radiology who felt these lesions are relatively acute process. Consider embolic given different location. No LV thrombus by Echo on 04/01. Repeat limited Echo 04/09 showing no LV thrombus. Discussed with Neurosurgery who recommended continuing to hold DAPT and repeat CT brain. Neurology consulted. Carotid US showing <50% stenosis bilateral ICA with no visible flow in the left vertebral artery. No CTA head/neck due to EDUIN/CKD. Repeat CT head 04/09 showing 2 hyperdense masses left temporal lobe, most likely acute subarachnoid hemorrhage. Discussed with neurosurgery. She recommended to continue to hold the DAPT and repeat head CT on Friday (04/12) unless Cardiology felt that it would be prudent to resume them sooner. She stated that the risk of cerebral bleeding is lower than the risk of stent thrombosis. Spoke with Cardiology who would prefer to resume DAPT since the risk of cerebral bleeding is lower so DAPT resumed on 04/09. Will forgo repeat head CT and just follow clinically. Have spoken with patient, and son about the severity of his illness, hospice and DNR status. Code status changed to DNR. Hospice being considered by family and plan currently is for patient to return home on hospice (2) Subarachnoid hemorrhage: Code(s): I60.9 - Nontraumatic subarachnoid hemorrhage, unspecified Status: Acute Assessment and Plan: As above (3) CVA (cerebral vascular accident): Code(s): I63.9 - Cerebral infarction, unspecified Status: Acute Assessment and Plan: As above. (4) Acute hypoxic respiratory failure: Code(s): J96.01 - Acute respiratory failure with hypoxia Status: Acute Assessment and Plan: Patient with hypercapnic respiratory failure due to pneumonia and CHF with undiagnosed ENRIQUE as well. Pulmonary consulted. Patient tolerating BiPAP at times but when he refuses, his ABG worsens and he becomes obtunded Wean oxygen as tolerated Appreciate Pulmonary input (5) Heart failure with reduced ejection fraction: Code(s): I50.20 - Unspecified systolic (congestive) heart failure Status: Acute Assessment and Plan: Patient presents with SOB c/w CHF. Echo showing EF 15-20% with hypokinetic and akinetic segments, Grade I diastolic dysfunction and mild valvular disease Coreg continued. Entresto added. He was started on furosemide IV. Spironolactone and Jardiance added Ischemic evaluation with findings of 99% proximal LAD disease status post PCI with MYRIAM x1. Was on aspirin and Plavix No plans for LifeVest at this time Cr higher then baseline but stable. Holding IV Lasix and Spironolactone. Add lasix today. (6) CAD (coronary artery disease): Code(s): I25.10 - Atherosclerotic heart disease of [place] coronary artery without angina pectoris Status: Acute Assessment and Plan: As above. Continue Crestor Tolerating DAPT (7) Elevated troponin: Code(s): R79.89 - Other specified abnormal findings of blood chemistry Status: Acute Assessment and Plan: Secondary to cardiac ischemia and CHF. CAD with [facility] 04/05 showing 99% proximal LAD disease status post PCI with MYRIAM x1. Medical man
[2024-04-11 16:26] LABS: Glucose Point of Care 327 mg/dl (65-105)
[2024-04-11] MEDS: FUROSEMIDE 40 MG TABLET PO (16:42)
[2024-04-11] MEDS: INSULIN HUMAN NPH (*BKC) 100 UNITS/ML SUB-Q (16:43)
[2024-04-11 20:03] LABS: Glucose Point of Care 299 mg/dl (65-105)
[2024-04-11] MEDS: MELATONIN 5 MG TABLET PO (21:21)
[2024-04-11] MEDS: SACUBITRIL/VALSARTAN 24-26 MG TABLET 1 TAB PO (21:21)
[2024-04-11] MEDS: carvediloL 12.5 MG TABLET PO (21:21)
[2024-04-11] MEDS: IMIPRAMINE HCL 25 MG TABLET PO (21:21)
[2024-04-12] VITALS (21 sets, daily range): BP systolic 95–126; BP diastolic 47–61; PULSE 59–75; RESP 18–22; TEMP 36.2–36.9; O2SAT 94–99
[2024-04-12] MEDS: INSULIN ASPART (*BKC) 100 UNITS/ML SUB-Q ×4 (07:41→16:22)
[2024-04-12 07:57] LABS: Glucose Point of Care 171 mg/dl (65-105)
[2024-04-12] MEDS: INSULIN HUMAN NPH (*BKC) 100 UNITS/ML 15 UNITS SUB-Q (08:00)
[2024-04-12] MEDS: ASPIRIN 81 MG CHEWABLE TABLET PO (08:06)
[2024-04-12] MEDS: FUROSEMIDE 40 MG TABLET PO (08:06)
[2024-04-12] MEDS: CLOPIDOGREL BISULFATE 75 MG TABLET PO (08:07)
[2024-04-12] MEDS: PRAMIPEXOLE 0.5 MG TABLET PO (08:07)
[2024-04-12] MEDS: carvediloL 12.5 MG TABLET PO ×2 (08:07→20:22)
[2024-04-12] MEDS: EMPAGLIFLOZIN 10 MG TABLET PO (08:07)
[2024-04-12] MEDS: FERROUS SULFATE 325 MG TABLET DR PO (08:08)
[2024-04-12] MEDS: TAMSULOSIN HCL 0.4 MG CAPSULE PO (08:09)
[2024-04-12] MEDS: SACUBITRIL/VALSARTAN 24-26 MG TABLET 1 TAB PO ×2 (08:09→20:24)
[2024-04-12] MEDS: ROSUVASTATIN 20 MG TABLET PO (08:09)
[2024-04-12 11:28] LABS: Glucose Point of Care 193 mg/dl (65-105)
[2024-04-12] MEDS: GABAPENTIN 300 MG CAPSULE 600 MG PO ×2 (11:36→20:23)
--- NOTE | 2024-04-12 13:20 | PM.IMPN ---
Progress Note: A&P Assessment and Plan (1) Confusion: Code(s): R41.0 - Disorientation, unspecified Status: Acute Assessment and Plan: Patient was more confused overnight (04/07-) with ABG showing worsening hypercarbia. BiPAP adjusted with improvement in his ABG and symptoms. CT brain showing 2 small hyperdense foci left temporal area; consider hemorrhagic or metastatic. DAPT and Lovenox were held. Brain MRI showing multiple small susceptibility artifact areas seen in left temporal lobe suggesting of hemorrhagic changes. Brain contusion possible. Also with 2 small foci of diffusion restriction in the right frontal and left occipital lobes which may represent small lacunar infarcts. Patient has not had head trauma. Discussed with radiology who felt these lesions are relatively acute process. Consider embolic given different location. No LV thrombus by Echo on 04/01. Repeat limited Echo 04/09 showing no LV thrombus. Discussed with Neurosurgery who recommended continuing to hold DAPT and repeat CT brain. Neurology consulted and felt these abnormalities on CT/MRI might be incidental findings.. Carotid US showing <50% stenosis bilateral ICA with no visible flow in the left vertebral artery. No CTA head/neck due to EDUIN/CKD. Repeat CT head 04/09 showing 2 hyperdense masses left temporal lobe, most likely acute subarachnoid hemorrhage. Discussed with neurosurgery. She recommended to continue to hold the DAPT and repeat head CT on Friday (04/12) unless Cardiology felt that it would be prudent to resume them sooner. She stated that the risk of cerebral bleeding is lower than the risk of stent thrombosis. Spoke with Cardiology who would prefer to resume DAPT since the risk of cerebral bleeding is lower so DAPT resumed on 04/09. Spoken with patient, and son about the severity of his illness, hospice and DNR status. Although neurology felt these might be incidental findings, have spoken with neurosurgery and 2 radiologist who feel these are real and concerning findings in cerebral imaging. Code status changed to DNR. Hospice being considered by family and plan currently is for patient to return home on hospice (2) Subarachnoid hemorrhage: Code(s): I60.9 - Nontraumatic subarachnoid hemorrhage, unspecified Status: Acute Assessment and Plan: As above (3) CVA (cerebral vascular accident): Code(s): I63.9 - Cerebral infarction, unspecified Status: Acute Assessment and Plan: As above. (4) Acute hypoxic respiratory failure: Code(s): J96.01 - Acute respiratory failure with hypoxia Status: Acute Assessment and Plan: Patient with hypercapnic respiratory failure due to pneumonia and CHF with undiagnosed ENRIQUE as well. Pulmonary consulted. Patient tolerating BiPAP at times but when he refuses, his ABG worsens and he becomes obtunded Wean oxygen as tolerated Appreciate Pulmonary input who have signed off. (5) Heart failure with reduced ejection fraction: Code(s): I50.20 - Unspecified systolic (congestive) heart failure Status: Acute Assessment and Plan: Patient presents with SOB c/w CHF. Echo showing EF 15-20% with hypokinetic and akinetic segments, Grade I diastolic dysfunction and mild valvular disease Coreg continued. Entresto added. He was started on furosemide IV. Spironolactone and Jardiance added Ischemic evaluation with findings of 99% proximal LAD disease status post PCI with MYRIAM x1. He was started on aspirin and Plavix No plans for LifeVest at this time Cr higher then baseline but stable. Holding IV Lasix and Spironolactone. Oral lasix resumed (6) CAD (coronary artery disease): Code(s): I25.10 - Atherosclerotic heart disease of [place] coronary artery without angina pectoris Status: Acute Assessment and Plan: As above. Continue Crestor Tolerating DAPT (7) Elevated troponin: Code(s): R79.89 - Other specified ab
[2024-04-12 16:20] LABS: Glucose Point of Care 296 mg/dl (65-105)
[2024-04-12] MEDS: INSULIN HUMAN NPH (*BKC) 100 UNITS/ML SUB-Q (17:21)
[2024-04-12 20:04] LABS: Glucose Point of Care 226 mg/dl (65-105)
[2024-04-12] MEDS: MELATONIN 5 MG TABLET PO (20:24)
[2024-04-12] MEDS: IMIPRAMINE HCL 25 MG TABLET PO (20:24)
[2024-04-13] VITALS (16 sets, daily range): BP systolic 90–122; BP diastolic 41–53; PULSE 69–89; RESP 19–22; TEMP 36.4–36.5; O2SAT 94–99
[2024-04-13 08:19] LABS: Glucose Point of Care 148 mg/dl (65-105)
[2024-04-13] MEDS: PRAMIPEXOLE 0.5 MG TABLET PO (08:29)
[2024-04-13] MEDS: CLOPIDOGREL BISULFATE 75 MG TABLET PO (08:29)
[2024-04-13] MEDS: SACUBITRIL/VALSARTAN 24-26 MG TABLET 1 TAB PO ×2 (08:29→20:25)
[2024-04-13] MEDS: ROSUVASTATIN 20 MG TABLET PO (08:29)
[2024-04-13] MEDS: carvediloL 12.5 MG TABLET PO ×2 (08:29→20:28)
[2024-04-13] MEDS: ASPIRIN 81 MG CHEWABLE TABLET PO (08:29)
[2024-04-13] MEDS: FUROSEMIDE 40 MG TABLET PO (08:30)
[2024-04-13] MEDS: GABAPENTIN 300 MG CAPSULE 600 MG PO (08:30)
[2024-04-13] MEDS: TAMSULOSIN HCL 0.4 MG CAPSULE PO (08:30)
[2024-04-13] MEDS: EMPAGLIFLOZIN 10 MG TABLET PO (08:30)
[2024-04-13] MEDS: FERROUS SULFATE 325 MG TABLET DR PO (08:30)
[2024-04-13] MEDS: INSULIN HUMAN NPH (*BKC) 100 UNITS/ML 15 UNITS SUB-Q (08:38)
[2024-04-13] MEDS: INSULIN ASPART (*BKC) 100 UNITS/ML SUB-Q (08:41)
--- NOTE | 2024-04-13 11:04 | PM.DS ---
DS: Admitting Diagnosis Discharge Date 04/13/24 Admitting Diagnosis Shortness of breath DS: Discharge Diagnosis Discharge Diagnosis (1) Confusion: Code(s): R41.0 - Disorientation, unspecified Status: Acute (2) Subarachnoid hemorrhage: Code(s): I60.9 - Nontraumatic subarachnoid hemorrhage, unspecified Status: Acute (3) CVA (cerebral vascular accident): Code(s): I63.9 - Cerebral infarction, unspecified Status: Acute (4) Acute hypoxic respiratory failure: Code(s): J96.01 - Acute respiratory failure with hypoxia Status: Acute (5) Heart failure with reduced ejection fraction: Code(s): I50.20 - Unspecified systolic (congestive) heart failure Status: Acute (6) CAD (coronary artery disease): Code(s): I25.10 - Atherosclerotic heart disease of [place] coronary artery without angina pectoris Status: Acute (7) Elevated troponin: Code(s): R79.89 - Other specified abnormal findings of blood chemistry Status: Acute (8) Pneumonia: Code(s): J18.9 - Pneumonia, unspecified organism Status: Acute (9) T2DM (type 2 diabetes mellitus): Code(s): E11.9 - Type 2 diabetes mellitus without complications Status: Acute (10) CKD (chronic kidney disease) stage 3, GFR 30-59 ml/min: Code(s): N18.30 - Chronic kidney disease, stage 3 unspecified Status: Acute (11) Anemia: Code(s): D64.9 - Anemia, unspecified Status: Acute DS: Summary Hospital Course Reason for hospitalization: 83yo male with DM with PN and CHF here for shortness of breath. Please see H&P for details. Hospital Course: Patient presented with SOB c/w CHF. CXR showing bibasilar PNA R>L. Echo showing EF 15-20% with hypokinetic and akinetic segments, Grade I diastolic dysfunction and mild valvular disease. Coreg continued. Entresto, Spironolactone and Jardiance added. He was started on furosemide IV. He had elevated troponin secondary to cardiac ischemia and CHF. Cardiology was consulted. Patient found to have CAD with [facility] 04/05 showing 99% proximal LAD disease status post PCI with MYRIAM x1. He was started on aspirin and Plavix. Creatinine 1.4 on admission but was fluid overloaded. With diuresis, Cr was stable around 1.6 initially but then climbed to 2.1 so diuretics held. Ultimately resumed oral Lasix. There was concern for PNA as well and he was started on ceftriaxone and azithromycin. CT chest 04/05 showing bilateral effusions with bilateral lower lobe airspace disease atelectasis vs PNA. He completed a course of azithromycin. Rocephin stopped after 5 days. Patient with hypercapnic respiratory failure due to pneumonia and CHF with undiagnosed ENRIQUE as well. Pulmonary consulted. Patient tolerated BiPAP at times but when he refuses, his ABG worsens and he becomes obtunded. Patient was more confused overnight (04/07-) with ABG showing worsening hypercarbia. BiPAP adjusted with improvement in his ABG and symptoms. CT brain showing 2 small hyperdense foci left temporal area; consider hemorrhagic or metastatic. DAPT and Lovenox were held. Brain MRI showing multiple small susceptibility artifact areas seen in left temporal lobe suggesting of hemorrhagic changes. Brain contusion possible. Also with 2 small foci of diffusion restriction in the right frontal and left occipital lobes which may represent small lacunar infarcts. Patient has not had head trauma. Discussed with radiology who felt these lesions are relatively acute process. Consider embolic given different location. No LV thrombus by Echo on 04/01. Repeat limited Echo 04/09 showing no LV thrombus. Discussed with Neurosurgery who recommended continuing to hold DAPT and repeat CT brain. Neurology consulted and felt these abnormalities on CT/MRI might be incidental findings. Carotid US showing <50% stenosis bilateral ICA with no visible flow in the left vertebral artery. No CTA head/neck due to EDUIN/CKD. Repeat CT head 04/09
[2024-04-13 11:50] LABS: Glucose Point of Care 141 mg/dl (65-105)
[2024-04-13 17:54] LABS: Glucose Point of Care 116 mg/dl (65-105)
--- NOTE | 2024-04-13 18:16 | PC.NURSE ---
1300 - discharged instructions discussed with pt and daughter- both verbalized understanding; copy faxed to [facility]. orders received earlier for discharge home with hospice care 1430 - daughter and left for home - waiting for ambulance arrival for transfer 1810- [facility] nurse Brit called - updated waiting for ambulance arrival for transport
[2024-04-13] MEDS: IMIPRAMINE HCL 25 MG TABLET PO (20:28)
[2024-04-13 20:54] LABS: Glucose Point of Care 132 mg/dl (65-105)
--- NOTE | 2024-04-13 21:51 | PC.NURSE ---
Pt left facility via [facility] at 2130, accompanied by his son. Brit from [facility] ([phone]) notified of pt's departure.
== END 2024-04-13 21:30 | disposition hospice, home (50) | DRG 981 ==
LOC: ANHIMU 04-02 11:22 → ANH2MED 04-02 15:09 → ANHIMU 04-05 14:07
PROVIDERS: Internal Medicine; Internal Medicine Pulmonary Disease; Psychiatry & Neurology Neurology; Specialist; Admitting Provider Internal Medicine; PCP Family Medicine; Visit Provider Internal Medicine
PROC: 4A023N7 Measurement of Cardiac Sampling and Pressure, Left Heart, Percutaneous Approach (ICD-10-PCS; CPT 93452; principal; 2024-04-05 11:00)
PROC: 027034Z Dilation of Coronary Artery, One Artery with Drug-eluting Intraluminal Device, Percutaneous Approach (ICD-10-PCS; 2024-04-05 11:00)
DX: J18.9 Pneumonia, unspecified organism (principal); I50.23 Acute on chronic systolic (congestive) heart failure; I60.9 Nontraumatic subarachnoid hemorrhage, unspecified; J96.21 Acute and chronic respiratory failure with hypoxia; J96.22 Acute and chronic respiratory failure with hypercapnia; I13.0 Hypertensive heart and chronic kidney disease with heart failure and stage 1 through stage 4 chronic kidney disease, or unspecified chronic kidney disease; Z68.42 Body mass index [BMI] 45.0-49.9, adult; R44.2 Other hallucinations; J98.11 Atelectasis; I25.10 Atherosclerotic heart disease of native coronary artery without angina pectoris; D69.6 Thrombocytopenia, unspecified; R41.0 Disorientation, unspecified; I25.5 Ischemic cardiomyopathy; E11.22 Type 2 diabetes mellitus with diabetic chronic kidney disease; N18.30 Chronic kidney disease, stage 3 unspecified; E11.42 Type 2 diabetes mellitus with diabetic polyneuropathy; R79.89 Other specified abnormal findings of blood chemistry; D63.1 Anemia in chronic kidney disease; G47.33 Obstructive sleep apnea (adult) (pediatric); E66.01 Morbid (severe) obesity due to excess calories; D50.9 Iron deficiency anemia, unspecified; Z66 Do not resuscitate
CPT/HCPCS: 36415; 36600; 70450; 70553; 71045; 71250; 80048; 80053; 80061; 80069; 82306; 82375; 82607; 82746; 82805; 82948; 83036; 83050; 83540; 83550; 83735; 83880; 84100; 84443; 84484; 85025; 85027; 85055; 85610; 85730; 87040; 93005; 93308; 93458; 93880; 94002; 94003; 94640; 97110; 97161; 97165; 97530; 97535; A9270; A9577; C1725; C1769; C1874; C1887; C1894; C8924; C8929; C9600; J0456; J0461; J0583; J0696; J1644; J1650; J1815; J1940; J2250; J2310; J3010; J7040; L1830; Q9957